=== PATIENT | male | born 1935 | race Caucasian/White ===

== ENCOUNTER 2016-09-12 11:36 | Emergency (ER) ==
--- NOTE | 2016-09-12 11:47 | ED.PDOC ---
General ED Provider: Dr. DAGO ECHEVERRIA JR Chief Complaint: Respiratory Complaint Stated Complaint: saw dr ortiz at office last week with cold sx--dx with pleuresy--given steroids--sx worse--pain to rt chest with cough--states only has 1/3 of lung--up most of nite with some soa--o2 sat at home at 88. [ End ] Time Seen by Physician: 11:47 Mode of Arrival: Walk-In Information Source: Patient Exam Limitations: No limitations Primary Care Provider: MILLIE ORTIZ Nursing and Triage Documentation Reviewed and Agree: No Review of Systems - Review Of Systems Constitutional: Reports: Malaise Eyes: Reports: No symptoms Ears, Nose, Mouth, Throat: Reports: No symptoms Respiratory: Reports: Cough, Short of air, Wheezing Cardiac: Reports: Chest pain, Lightheadedness GI: Reports: No symptoms : Reports: No symptoms Musculoskeletal: Reports: No symptoms Skin: Reports: No symptoms Neurological: Reports: Anxiety Endocrine: Reports: No symptoms Hematologic/Lymphatic: Reports: No symptoms All Other Systems: Other Past Medical History - Past Medical History Previously Healthy: No Endocrine: Reports: DM 2, Dyslipidemia Cardiovascular: Reports: PR, Hypertension Respiratory: Reports: COPD Hematological: Reports: Anemia Gastrointestinal: Reports: None Genitourinary: Reports: None Neuro/Psych: Reports: None Musculoskeletal: Reports: None Cancer: Reports: Lung, Other (bladder) Other Pertinent Past Medical History: pacer bladder tumor lung cancer - Surgical History General Surgical History: Reports: Pacemaker, Other (partial pneumonectomy right upper lobe) - Family History Family History: Reports: Cancer (sisters brothers mother all with due to brain tumors"mine skipped my head and got my lung") - Social History Smoking Status: Current every day smoker, Heavy tobacco smoker Hx Substance Use: No Alcohol Screening: None Physical Exam - Physical Exam Appearance: Ill-appearing, Thin Ill-appearing: Mild Pain Distress: Mild Eyes: ROBERTO, EOMI, Conjunctiva clear ENT: Ears normal, Nose normal, Oropharynx normal Neck: Supple Respiratory: Airway patent, Breath sounds diminished, Rhonchi, Wheezes Cardiovascular: RRR, Pulses normal, No rub, No murmur GI/: Soft, Nontender, No masses, Bowel sounds normal, No Organomegaly Musculoskeletal: Normal strength, ROM intact, No edema, No calf tenderness Skin: Warm, Dry, Normal color Neurological: Sensation intact, Motor intact, Reflexes intact, Cranial nerves intact, Alert, Oriented Psychiatric: Affect appropriate, Anxious Interpretation - Radiology Interpretation Radiology Interpretation By: Radiologist Radiology Results: No acute changes Exam Interpreted: CXR - EKG Interpretation Time of EKG #1: 12:30 Rate: Normal (96) Rhythm: Other (paced no acute changes noted) EKG Comparison: No significant changes ([id number]) Critical Care Note - Critical Care Note Total Time (mins): 15 Course - Course Hematology/Chemistry: 09/12/16 12:40 09/12/16 12:40 Orders, Labs, Meds: Lab Review 09/12/16 09/12/16 12:21 12:40 WBC 21.86 H RBC 4.68 L Hgb 13.1 L Hct 39.6 L MCV 84.6 MCH 28.0 MCHC 33.1 RDW Coeff of [place] 13.7 Plt Count 169 Immature Gran % (Auto) 0.6 Neut % (Auto) 80.0 Lymph % (Auto) 8.1 L [place] % (Auto) 10.5 H Eos % (Auto) 0.5 Baso % (Auto) 0.3 Immature Gran # (Auto) 0.1 Neut # 17.5 H Lymph # 1.8 [place] # 2.3 H Eos # 0.1 Baso # 0.1 D-Dimer 0.89 Puncture Site Lbrach O2 Saturation 90.0 L ABG pH 7.408 ABG pCO2 44.6 ABG pO2 59.0 L* ABG HCO3 28.2 H ABG Total CO2 30 H ABG Base Excess 4 H FiO2 % 21.0 Sodium 139 Potassium 4.3 Chloride 99 Carbon Dioxide 30 Anion Gap 14.3 BUN 21 H Creatinine 1.35 H Estimated GFR (MDRD) 51.00 BUN/Creatinine Ratio 15.55 Glucose 184 H Calcium 10.9 H Total Bilirubin 1.04 AST 14 L ALT 12 Alkaline Phosphatase 62 Total Creatine Kinase 14 Troponin I 0.0100 B-Natriuretic Peptide 151 H Total Protein 7.3 Albumin 3.7 Globulin 3.6 Albumin/Globulin Ratio 1.03 Orders Category Date Time Status ABG DRAW REQUEST Stat CARDIO 09/12/16 12:22 Completed EKG-(ED ONLY) Stat CARDIO 09/12/16 12:21 Completed NEBULIZER TREATMENT Stat CARDIO 09/12/16 12:21 Completed ED IV/MEDIPORT/POWERPORT .ONCE EMERGENCY 09/12/16 12:21 Active ABG Stat LAB 09/12/16 12:21 Completed B-TYPE NATRIURETIC PEPTIDE Stat LAB 09/12/16 12:40 Completed BLOOD CULTURE Stat LAB 09/12/16 12:40 Received CBC W/ AUTO DIFF Stat LAB 09/12/16 12:40 Completed COMPREHENSIVE METABOLIC PANEL Stat LAB 09/12/16 12:40 Completed CREATINE KINASE Stat LAB 09/12/16 12:40 Completed D-DIMER Stat LAB 09/12/16 12:40 Completed TROPONIN I Stat LAB 09/12/16 12:40 Completed UA [URINALYSIS C & S IF INDICATED] Stat LAB 09/12/16 12:54 Uncollected 0.9 % Sodium Chloride [Saline Flush] MEDS 09/12/16 12:21 Active 1 syr IVF PRN PRN Ipratropium/Albuterol Neb [Duoneb] MEDS 09/12/16 12:19 Discontinued 1 vial NEB ONCE STA Ipratropium/Albuterol Neb [Duoneb] MEDS 09/12/16 12:21 Discontinued 1 vial NEB ONCE STA Nicotine 21 mg [Nicoderm 21 mg] MEDS 09/12/16 12:56 Discontinued 1 patch TD ONCE STA CHEST, 1V AP ONLY Stat RADS 09/12/16 12:21 Stop Req CHEST, 2 VIEWS PA & LAT Stat RADS 09/12/16 11:39 Completed Medications Generic Name Dose Route Start Last Admin Trade Name Freq PRN Reason Stop Dose Admin Sodium Chloride 1 syr 09/12/16 12:21 Saline Flush IVF PRN PRN To flush IV Discontinued Medications Generic Name Dose Route Start Last Admin Trade Name Freq PRN Reason Stop Dose Admin Albuterol/Ipratropium 1 vial 09/12/16 12:19 09/12/16 12:37 Duoneb NEB 09/12/16 12:20 1 vial ONCE STA Administration Albuterol/Ipratropium 1 vial 09/12/16 12:21 09/12/16 13:02 Duoneb NEB 09/12/16 12:22 Not Given ONCE STA Nicotine 1 patch 09/12/16 12:56 09/12/16 13:50 Nicoderm 21 Mg TD 09/12/16 12:57 Not Given ONCE STA Vital Signs: Temp Pulse Resp BP Pulse Ox 09/12/16 11:36 97.6 F 100 H 20 110/68 88 L Departure - Departure Time of Disposition: 13:52 Disposition: HOME SELF-CARE Discharge Problem: COPD exacerbation Instructions: Emphysema (ED), COPD (Chronic Obstructive Pulmonary Disease) (ED) , How to Stop Smoking (ED) Condition: Stable Pt referred to PMD for follow-up: Yes Additional Instructions: Please follow-up with Dr. Ortiz in 1-2 days. may begin antibiotic discuss symptoms and medications with your physician return if fever over 101.0 if breathing worsening despite oxygen keep home oxygen at 2-3 for three days then as needed stop smoking Prescriptions: Sulfamethoxazole/Trimethoprim [Bactrim Ds 800/160 mg] 1 tab PO Q12HR #14 tablet Allergies/Adverse Reactions: Allergies codeine [Codeine] Adverse Reaction (Verified 09/12/16 11:47) Penicillins Adverse Reaction (Verified 09/12/16 11:47) propoxyphene HCl [From Darvon] Adverse Reaction (Verified 09/12/16 11:47) Home Medications: Ambulatory Orders Alprazolam [Xanax] 1 mg PO BEDTIME 01/05/13 Atorvastatin Calcium [Lipitor] 20 mg PO BEDTIME 01/05/13 Dexlansoprazole [Dexilant] 60 mg PO DAILY 01/05/13 Cyclobenzaprine HCl [Flexeril] 10 mg PO DAILY PRN 02/03/14 Hydrocodone/Acetaminophen [Hydrocodon-Acetaminophn 10-325] 1 each PO TID PRN Diltiazem HCl [Cardizem] 60 mg PO BID 12/04/15 Polyethylene Glycol 3350 [Miralax] 17 gm PO BEDTIME 12/04/15 Arformoterol Tartrate [Brovana] 1 vial NEB DAILY 04/04/16 Aspirin [Ecotrin] 81 mg PO DAILYWM 07/11/16 Sotalol HCl [Betapace] 40 mg PO BID 07/11/16 Tamsulosin HCl [Flomax] 0.4 mg PO BEDTIME 07/11/16 Cholecalciferol (Vitamin D3) [Vitamin D] 1,000 unit PO DAILY 09/12/16 Multivitamin 1 cap PO DAILY 09/12/16 Sulfamethoxazole/Trimethoprim [Bactrim Ds 800/160 mg] 1 tab PO Q12HR #14 tablet 09/12/16
[2016-09-12 11:54] VITALS: BP 110/68; TEMP 97.6; BMI 21.2
--- NOTE | 2016-09-12 12:08 | DI ---
Exam: Chest two views History: Shortness of air Findings: PA and lateral views of the chest were obtained and compared to the single view study fro 07/11/2016 and a two-view study from 05/16/2016. The lungs are severely emphysematous in appearan ce. There is right-sided volume loss thought due to a prior right-sided thoracotomy. There is supe rior retraction of the right hilum seen in association with abnormal thickening at the right lung ap ex presumably related to pleural reactive changes and the right-sided volume loss in this patient wi th a presumed at least partial right upper lobectomy. There is no definite acute infiltrate or consolidate identified. Cardiac silhouette appears stable and believed to be within normal limits. Pacer device obscures the right midlung zone with the pace r leads appearing unchanged in position. IMPRESSION: Patient status post prior right thoracotomy for a presumed at least partial right upper lobectomy seen in association with postoperative changes including considerable right apical pleura l thickening and superior retraction of the right hilum as well as right basilar pleural parenchymal changes. Emphysematous appearing lungs. No significant changes compared to the prior studies from 05/16/2016 and 07/11/2016.
[2016-09-12] MEDS ORDERED: DUONEB NEB STA ×2 (12:19→12:21)
[2016-09-12 12:44] LABS: ABG BASE EXCESS 4 (-2.0-2.0); ABG HCO3 28.2 (22.0-26.0); ABG PCO2 44.6 mmHg (35-45); ABG PH 7.408 (7.35-7.45); ABG TCO2 30 (22.0-28.0)
[2016-09-12 12:51] LABS: BASOPHILS # (AUTO) 0.1 K/uL (0-0.2); BASOPHILS % (AUTO) 0.3 % (0.0-3.0); EOSINOPHILS # (AUTO) 0.1 K/ul (0.0-0.7); EOSINOPHILS % (AUTO) 0.5 % (0.0-7.0); HEMATOCRIT 39.6 % (42.0-52.0); HEMOGLOBIN 13.1 g/dl (14.0-18.0); IMMATURE GRANULOCYTE % (AUTO) 0.6 % (0.0-5.0); LYMPHOCYTES # (AUTO) 1.8 K/uL (0.60-3.4); LYMPHOCYTES % (AUTO) 8.1 (10.0-50.0); MEAN CORPUSCULAR HGB CONC 33.1 (31.8-35.4); MEAN CORPUSCULAR VOLUME 84.6 fl (80.0-94.0); MONOCYTES # (AUTO) 2.3 K/uL (0.4-2.0); MONOCYTES % (AUTO) 10.5 (0-10); NEUTROPHILS # (AUTO) 17.5 K/ul (2.0-6.9); PLATELET COUNT 169 10^3/uL (140-440); RED BLOOD COUNT 4.68 10^6/ul (4.70-6.10); WHITE BLOOD COUNT 21.86 K/ul (4.2-10.2)
[2016-09-12] MEDS ORDERED: NICODERM 21 MG TD STA (12:56)
[2016-09-12 13:21] LABS: ALBUMIN 3.7 g/dL (3.4-5.0); ALBUMIN/GLOBULIN RATIO 1.03; ANION GAP 14.3; BILIRUBIN,TOTAL 1.04 mg/dL (0.00-1.20); BUN/CREATININE RATIO 15.55; CALCIUM 10.9 mg/dL (8.2-10.2); CREATININE 1.35 mg/dL (0.60-1.10); POTASSIUM 4.3 mmol/L (3.5-5.1); TOTAL PROTEIN 7.3 g/dL (5.8-8.1); TROPONIN I 0.01 ng/ml (0.0000-0.4000)
== END 2016-09-12 14:10 | disposition home or self-care (01) ==
LOC: ED 11:36
DX: J44.1 Chronic obstructive pulmonary disease with (acute) exacerbation (principal); R07.9 Chest pain, unspecified; I10 Essential (primary) hypertension; E11.9 Type 2 diabetes mellitus without complications; E78.5 Hyperlipidemia, unspecified; D64.9 Anemia, unspecified; I25.2 Old myocardial infarction; F17.210 Nicotine dependence, cigarettes, uncomplicated; Z79.899 Other long term (current) drug therapy; Z85.118 Personal history of other malignant neoplasm of bronchus and lung; Z95.0 Presence of cardiac pacemaker
CPT/HCPCS: 36415; 80053; 82550; 82803; 83880; 84484; 85025; 85379; 87040; 93005; 93010; 94640; 99283

== ENCOUNTER 2016-09-25 21:07 | Inpatient (IN) | payer OTHER ==
[2016-09-25] MEDS ORDERED: SOLU-MEDROL 125 MG IVP STA (21:29)
[2016-09-25] MEDS ORDERED: DUONEB NEB STA (21:31)
--- NOTE | 2016-09-25 21:35 | ED.PDOC ---
General ED Provider: Dr. DERECK HANDY Chief Complaint: Shortness of Air Stated Complaint: Patient is an 81 year old female who comes to the ER with dyspnea for 2 days he was treated in the ER 2 week ago for bronchitis with bactrim but has continue to have productive cough now with green sputum. Has a history of partial right lung resection 8 years ago. Continues to smoke vaper. Time Seen by Physician: 21:33 Mode of Arrival: Walk-In Information Source: Patient Primary Care Provider: MILLIE RUSH Nursing and Triage Documentation Reviewed and Agree: Yes Respiratory Complaint Exam - Respiratory Complaint/Exam Onset/Duration: 2 weeks Symptoms Are: Still present Timing: Intermittent Initial Severity: Moderate Current Severity: Moderate Location: Chest Character: Reports: Productive cough (green sputum ) Aggravating: Reports: Passive smoke exposure (and active smoking of vapor ), Weather Associated Signs and Symptoms: Reports: Dyspnea, URI. Denies: Rapid breathing, Fever, Chills, Chest pain, Pleuritic chest pain, Wheezing, Hemoptysis, Dizziness , Calf pain, Calf swelling, Edema, Nasal congestion, Hoarseness, Sinus discomfort, Vomiting, Sore throat, Weight loss, Decreased oral intake, Increased thirst, Increased appetite, Increased urination Related History: Reports: Similar episode Pulmonary Embolism Risk Factors: Smoking Pseudomonas Risk Factors: Reports: Chronic Lung Disease Tuberculosis Risk Factors: Reports: Corticosteriod use Status Asthmaticus Risk Factors: Reports: Recent steriods Home Oxygen Use: Yes (at night ) Recent Stress Test: No Recent Echo/LV Function: No Current Antibiotic Use: No Current Asthma Medication Use: No Respiratory Distress: Mild Dysphagia Present: No Stridor Present: No JVD Present: No Accessory Muscle Use: No Retractions: Not Present Diminished Breath Sounds: Yes (bilaterally worse on the right ) Sinus Tenderness: None Grunting Respirations: No Kussmaul Respirations: No Differential Diagnoses: COPD Exacerbation, Pneumonia, URI, Influenza Review of Systems - Review Of Systems Constitutional: Reports: No symptoms Eyes: Reports: No symptoms Ears, Nose, Mouth, Throat: Reports: No symptoms Respiratory: Reports: Cough (green sputurm ), Short of air Cardiac: Reports: No symptoms GI: Reports: No symptoms : Reports: No symptoms Musculoskeletal: Reports: No symptoms Skin: Reports: No symptoms Neurological: Reports: No symptoms Endocrine: Reports: No symptoms Hematologic/Lymphatic: Reports: No symptoms All Other Systems: Reviewed and Negative Past Medical History - Past Medical History Previously Healthy: No Endocrine: Reports: DM 2, Dyslipidemia Cardiovascular: Reports: MA, Hypertension Respiratory: Reports: COPD Hematological: Reports: Anemia Gastrointestinal: Reports: None Genitourinary: Reports: None Neuro/Psych: Reports: None Musculoskeletal: Reports: None Cancer: Reports: Lung, Other (bladder) Other Pertinent Past Medical History: pacer bladder tumor lung cancer - Surgical History General Surgical History: Reports: Pacemaker, Other (partial pneumonectomy right upper lobe) - Family History Family History: Reports: Cancer (sisters brothers mother all with due to brain tumors"mine skipped my head and got my lung") - Social History Smoking Status: Vaping Hx Substance Use: No Alcohol Screening: None Lives: With family - Immunizations Tetanus Shot up to Date: Yes Physical Exam - Physical Exam Appearance: Ill-appearing Ill-appearing: Mild Eyes: ROBERTO, EOMI, Conjunctiva clear ENT: Ears normal, Nose normal, Oropharynx normal Neck: Supple Respiratory: Breath sounds diminished Cardiovascular: RRR, Pulses normal, No rub, No murmur GI/: Soft, Nontender, No masses, Bowel sounds normal, No Organomegaly Musculoskeletal: Normal strength, ROM intact, No edema, No calf tenderness Skin: Warm Interpretation - Radiology Interpretation Radiology Interpretation By: Radiologist Radiology Results: Positive (Right lower lobe infilarate. Post op changes on the right) Re-Evaluation - Re-Evaluation Time of Re-Evaluation: 22:56 Status: Improved Lungs: Other (Diminihsed) Physician Notification - Case Discussed Physician Notified: Dr Rush Time of Notification: 22:54 (ok to admit to Telemetry ) Critical Care Note - Critical Care Note Total Time (mins): 30 Course - Course Hematology/Chemistry: 09/25/16 21:30 09/25/16 21:30 Orders, Labs, Meds: Lab Review 09/25/16 09/25/16 09/25/16 21:29 21:30 22:00 WBC 20.59 H RBC 4.25 L Hgb 11.8 L Hct 35.8 L MCV 84.2 MCH 27.8 MCHC 33.0 RDW Coeff of [place] 13.4 Plt Count 187 Immature Gran % (Auto) 0.5 Neut % (Auto) 77.7 Lymph % (Auto) 11.9 [place] % (Auto) 8.6 Eos % (Auto) 1.0 Baso % (Auto) 0.3 Immature Gran # (Auto) 0.1 Neut # 16.0 H Lymph # 2.4 [place] # 1.8 Eos # 0.2 Baso # 0.1 Puncture Site Rb O2 Saturation 87.0 L ABG pH 7.386 ABG pCO2 44.7 ABG pO2 54.0 L* ABG HCO3 26.8 H ABG Total CO2 28 ABG Base Excess 2 Nima Test + FiO2 % 21.0 Sodium 139 Potassium 4.7 Chloride 102 Carbon Dioxide 27 Anion Gap 14.7 BUN 19 H Creatinine 1.28 H Estimated GFR (MDRD) 54.00 BUN/Creatinine Ratio 14.84 Glucose 197 H Lactic Acid Calcium 10.0 Total Bilirubin 0.32 AST 14 L ALT 10 L Alkaline Phosphatase 70 Total Creatine Kinase 17 Troponin I 0.0250 Total Protein 7.3 Albumin 3.1 L Globulin 4.2 Albumin/Globulin Ratio 0.74 Procalcitonin 0.14 Influenza A (Rapid) Negative Influenza B (Rapid) Negative 09/25/16 22:10 WBC RBC Hgb Hct MCV MCH MCHC RDW Coeff of [place] Plt Count Immature Gran % (Auto) Neut % (Auto) Lymph % (Auto) [place] % (Auto) Eos % (Auto) Baso % (Auto) Immature Gran # (Auto) Neut # Lymph # [place] # Eos # Baso # Puncture Site O2 Saturation ABG pH ABG pCO2 ABG pO2 ABG HCO3 ABG Total CO2 ABG Base Excess Nima Test FiO2 % Sodium Potassium Chloride Carbon Dioxide Anion Gap BUN Creatinine Estimated GFR (MDRD) BUN/Creatinine Ratio Glucose Lactic Acid 8.5 Calcium Total Bilirubin AST ALT Alkaline Phosphatase Total Creatine Kinase Troponin I Total Protein Albumin Globulin Albumin/Globulin Ratio Procalcitonin Influenza A (Rapid) Influenza B (Rapid) Orders Category Date Time Status ADMIT PATIENT INPATIENT .TO [facility] (MONITORED BED) ADMISSION 09/25/16 23: 02 Active ABG DRAW REQUEST Stat CARDIO 09/25/16 21:30 Completed EKG-(ED ONLY) Stat CARDIO 09/25/16 21:22 Completed EKG-(IP & OP ONLY) Routine CARDIO 09/26/16 06:00 Ordered NEBULIZER TREATMENT Stat CARDIO 09/25/16 21:31 Completed OXYGEN Routine CARDIO 09/25/16 23:02 Active ACTIVITY .Up ad [place] CARE 09/25/16 23:04 Active INTAKE & OUTPUT Q8HR CARE 09/25/16 23:02 Active TELEMETRY MONITORING TELE CARE 09/25/16 23:03 Active VITAL SIGNS Q4HR CARE 09/25/16 23:03 Active REGULAR DIET DIETARY 09/25/16 Breakfast Ordered ED APPLY O2 .ONCE EMERGENCY 09/25/16 22:25 Active ED IV/MEDIPORT/POWERPORT .ONCE EMERGENCY 09/25/16 22:25 Active ABG Stat LAB 09/25/16 21:29 Completed BASIC METABOLIC PANEL DAILY@0600 LAB 09/26/16 06:00 Ordered BASIC METABOLIC PANEL DAILY@0600 LAB 09/27/16 06:00 Ordered BASIC METABOLIC PANEL DAILY@0600 LAB 09/28/16 06:00 Ordered BASIC METABOLIC PANEL DAILY@0600 LAB 09/29/16 06:00 Ordered BASIC METABOLIC PANEL DAILY@0600 LAB 09/30/16 06:00 Ordered BASIC METABOLIC PANEL DAILY@0600 LAB 10/01/16 06:00 Ordered BASIC METABOLIC PANEL DAILY@0600 LAB 10/02/16 06:00 Ordered BASIC METABOLIC PANEL DAILY@0600 LAB 10/03/16 06:00 Ordered BASIC METABOLIC PANEL DAILY@0600 LAB 10/04/16 06:00 Ordered BASIC METABOLIC PANEL DAILY@0600 LAB 10/05/16 06:00 Ordered BASIC METABOLIC PANEL DAILY@0600 LAB 10/06/16 06:00 Ordered BASIC METABOLIC PANEL DAILY@0600 LAB 10/07/16 06:00 Ordered BASIC METABOLIC PANEL DAILY@0600 LAB 10/08/16 06:00 Ordered BASIC METABOLIC PANEL DAILY@0600 LAB 10/09/16 06:00 Ordered BASIC METABOLIC PANEL DAILY@0600 LAB 10/10/16 06:00 Ordered BASIC METABOLIC PANEL DAILY@0600 LAB 10/11/16 06:00 Ordered BASIC METABOLIC PANEL DAILY@0600 LAB 10/12/16 06:00 Ordered BASIC METABOLIC PANEL DAILY@0600 LAB 10/13/16 06:00 Ordered BASIC METABOLIC PANEL DAILY@0600 LAB 10/14/16 06:00 Ordered BASIC METABOLIC PANEL DAILY@0600 LAB 10/15/16 06:00 Ordered BLOOD CULTURE Stat LAB 09/25/16 22:10 Received CBC W/ AUTO DIFF DAILY@0600 LAB 09/26/16 06:00 Ordered CBC W/ AUTO DIFF DAILY@0600 LAB 09/27/16 06:00 Ordered CBC W/ AUTO DIFF DAILY@0600 LAB 09/28/16 06:00 Ordered CBC W/ AUTO DIFF DAILY@0600 LAB 09/29/16 06:00 Ordered CBC W/ AUTO DIFF DAILY@0600 LAB 09/30/16 06:00 Ordered CBC W/ AUTO DIFF DAILY@0600 LAB 10/01/16 06:00 Ordered CBC W/ AUTO DIFF DAILY@0600 LAB 10/02/16 06:00 Ordered CBC W/ AUTO DIFF DAILY@0600 LAB 10/03/16 06:00 Ordered CBC W/ AUTO DIFF DAILY@0600 LAB 10/04/16 06:00 Ordered CBC W/ AUTO DIFF DAILY@0600 LAB 10/05/16 06:00 Ordered CBC W/ AUTO DIFF DAILY@0600 LAB 10/06/16 06:00 Ordered CBC W/ AUTO DIFF DAILY@0600 LAB 10/07/16 06:00 Ordered CBC W/ AUTO DIFF DAILY@0600 LAB 10/08/16 06:00 Ordered CBC W/ AUTO DIFF DAILY@0600 LAB 10/09/16 06:00 Ordered CBC W/ AUTO DIFF DAILY@0600 LAB 10/10/16 06:00 Ordered CBC W/ AUTO DIFF DAILY@0600 LAB 10/11/16 06:00 Ordered CBC W/ AUTO DIFF DAILY@0600 LAB 10/12/16 06:00 Ordered CBC W/ AUTO DIFF DAILY@0600 LAB 10/13/16 06:00 Ordered CBC W/ AUTO DIFF DAILY@0600 LAB 10/14/16 06:00 Ordered CBC W/ AUTO DIFF DAILY@0600 LAB 10/15/16 06:00 Ordered CBC W/ AUTO DIFF Stat LAB 09/25/16 21:30 Completed COMPREHENSIVE METABOLIC PANEL Stat LAB 09/25/16 21:30 Completed CREATINE KINASE Stat LAB 09/25/16 21:30 Completed FLU A & B RAPID TEST [RAPID FLU A/B] Stat LAB 09/25/16 22:00 Completed LACTIC ACID Stat LAB 09/25/16 22:10 Completed MOLECULAR GROUP A STREP Stat LAB 09/25/16 22:00 Results PROCALCITONIN Stat LAB 09/25/16 21:30 Completed STREP SCREEN Stat LAB 09/25/16 22:00 Results TROPONIN I Stat LAB 09/25/16 21:30 Completed 0.9 % Sodium Chloride [Saline Flush] MEDS 09/25/16 22:24 Ordered 1 syr IVF PRN PRN Enoxaparin Sodium [Lovenox] MEDS 09/26/16 09:00 Ordered 40 mg SUBCUT DAILY Hydrocortisone Sod Succ/Pf [Solu-Cortef 100 mg] MEDS 09/25/16 22:45 Discontinued 100 mg IVP ONCE STA Hydrocortisone Sod Succ/Pf [Solu-Cortef 100 mg] MEDS 09/25/16 23:02 Discontinued 100 mg IVP ONCE STA Hydrocortisone Sod Succ/Pf [Solu-Cortef 100 mg] MEDS 09/26/16 05:00 Ordered 100 mg IVP Q8HR Ipratropium/Albuterol Neb [Duoneb] MEDS 09/25/16 21:31 Discontinued 1 vial NEB ONCE STA Levofloxacin/D5w [Levaquin] 100 ml MEDS 09/25/16 22:55 Discontinued IV .STK-MED Levofloxacin/D5w [Levaquin] 500 mg MEDS 09/26/16 09:00 Ordered Premix 100 ml D5w 1 bag IV DAILY Levofloxacin/D5w [Levaquin] 500 mg MEDS 09/25/16 22:46 Discontinued Premix 100 ml D5w 1 bag IV ONCE Methylprednisolone Sod Succ/Pf [Solu-Medrol 125 mg] MEDS 09/25/16 21:29 Discontinued 125 mg IVP ONCE STA Ondansetron HCl/Pf [Zofran 4 mg/2 ml] MEDS 09/25/16 23:02 Ordered 4 mg IVP Q6H PRN Sodium Chloride 0.9% [Sodium Chloride] 1,000 ml MEDS 09/25/16 23:30 Ordered IV 75 mls/hr RESUSCITATION STATUS Routine OTHERS 09/25/16 23:[address] CHEST W/O CONTRAST Stat RADS 09/25/16 21:32 Completed Medications Generic Name Dose Route Start Last Admin Trade Name Freq PRN Reason Stop Dose Admin Acetaminophen/Hydrocodone Bitart 1 tab 09/26/16 00:23 09/26/16 01:00 [place] 10-325 PO 1 tab TID PRN Administration MODERATE PAIN Albuterol/Ipratropium 1 vial 09/26/16 06:00 Duoneb NEB RTQID PRIYANKA Albuterol/Ipratropium 1 vial 09/25/16 23:21 Duoneb NEB RTQ2H PRN Wheezing Aspirin 81 mg 09/26/16 08:00 Aspirin Ec PO DAILYWM [facility] Atorvastatin Calcium 20 mg 09/26/16 21:00 09/26/16 01:00 Lipitor PO 20 mg BEDTIME PRIYANKA Administration Cholecalciferol 1,000 unit 09/26/16 09:00 Vitamin D PO DAILY [facility] Cyclobenzaprine HCl 10 mg 09/25/16 23:13 09/26/16 01:00 Flexeril PO 10 mg DAILY PRN Administration Spasms Diltiazem HCl 60 mg 09/26/16 09:00 Cardizem PO BID [facility] Enoxaparin Sodium 40 mg 09/26/16 09:00 Lovenox SUBCUT DAILY [facility] Hydrocortisone Sodium Succinate 100 mg 09/26/16 05:00 Solu-Cortef 100 Mg IVP Q8HR [facility] Levofloxacin/Dextrose 500 mg/ 100 mls @ 100 mls/hr 09/26/16 09:00 Dextrose IV DAILY [facility] Sodium Chloride 1,000 mls @ 75 mls/hr 09/25/16 23:30 09/26/16 00:15 Sodium Chloride IV 75 mls/hr .[id number] [facility] Administration Multivitamins 1 cap 09/26/16 09:00 Multivitamin PO DAILY [facility] Non-Formulary Medication 60 mg 09/26/16 09:00 Dexlansoprazole [Dexilant] PO DAILY [facility] Non-Formulary Medication 1 mg 09/26/16 21:00 Alprazolam [Xanax] PO BEDTIME [facility] Ondansetron HCl 4 mg 09/25/16 23:02 Zofran 4 Mg/2 Ml IVP Q6H PRN Nausea / Vomiting Polyethylene Glycol 17 gm 09/26/16 21:00 Miralax PO BEDTIME [facility] Sodium Chloride 1 syr 09/25/16 22:24 09/25/16 22:40 Saline Flush IVF 1 syr PRN PRN Administration To flush IV Sotalol HCl 40 mg 09/26/16 09:00 Betapace PO BID [facility] Tamsulosin HCl 0.4 mg 09/26/16 21:00 09/26/16 01:00 Flomax PO 0.4 mg BEDTIME PRIYANKA Administration Discontinued Medications Generic Name Dose Route Start Last Admin Trade Name Freq PRN Reason Stop Dose Admin Acetaminophen/Hydrocodone Bitart tab 09/25/16 23:13 [place] 10-325 PO TID PRN MODERATE PAIN Albuterol/Ipratropium 1 vial 09/25/16 21:31 09/25/16 22:00 Duoneb NEB 09/25/16 21:32 1 vial ONCE STA Administration Hydrocortisone Sodium Succinate 100 mg 09/25/16 22:45 09/25/16 23:07 Solu-Cortef 100 Mg IVP 09/25/16 22:46 100 mg ONCE STA Administration Hydrocortisone Sodium Succinate 100 mg 09/25/16 23:02 09/26/16 01:00 Solu-Cortef 100 Mg IVP 09/25/16 23:03 100 mg ONCE STA Administration Levofloxacin/Dextrose 500 mg/ 100 mls @ 100 mls/hr 09/25/16 22:46 09/25/16 23 :06 Dextrose IV 09/25/16 23:45 100 mls/hr ONCE STA Administration Methylprednisolone Sodium Succinate 125 mg 09/25/16 21:29 09/25/16 22:40 Solu-Medrol 125 Mg IVP 09/25/16 21:30 125 mg ONCE STA Administration Vital Signs: Temp Pulse Resp BP Pulse Ox 09/25/16 23:05 97.1 F L 87 20 126/63 96 09/25/16 21:09 99.6 F 95 H 18 137/75 95 Departure - Departure Time of Disposition: 22:50 Disposition: HOME SELF-CARE Discharge Problem: Pneumonia Qualifiers: Pneumonia type: due to unspecified organism Laterality: right Lung location: lower lobe of lung Qualifier Code: (J18.1) Lobar pneumonia, unspecified organism Condition: Fair Pt referred to PMD for follow-up: No (admitted ) Allergies/Adverse Reactions: Allergies codeine [Codeine] Adverse Reaction (Verified 09/25/16 21:15) Penicillins Adverse Reaction (Verified 09/25/16 21:15) propoxyphene HCl [From Darvon] Adverse Reaction (Verified 09/25/16 21:15) Home Medications: Ambulatory Orders Alprazolam [Xanax] 1 mg PO BEDTIME 01/05/13 Atorvastatin Calcium [Lipitor] 20 mg PO BEDTIME 01/05/13 Dexlansoprazole [Dexilant] 60 mg PO DAILY 01/05/13 Cyclobenzaprine HCl [Flexeril] 10 mg PO DAILY PRN 02/03/14 Hydrocodone/Acetaminophen [Hydrocodon-Acetaminophn 10-325] 1 each PO TID PRN Diltiazem HCl [Cardizem] 60 mg PO BID 12/04/15 Polyethylene Glycol 3350 [Miralax] 17 gm PO BEDTIME 12/04/15 Arformoterol Tartrate [Brovana] 1 vial NEB DAILY 04/04/16 Aspirin [Ecotrin] 81 mg PO DAILYWM 07/11/16 Sotalol HCl [Betapace] 40 mg PO BID 07/11/16 Tamsulosin HCl [Flomax] 0.4 mg PO BEDTIME 07/11/16 Cholecalciferol (Vitamin D3) [Vitamin D] 1,000 unit PO DAILY 09/12/16 Multivitamin 1 cap PO DAILY 09/12/16
[2016-09-25 21:37] LABS: BASOPHILS # (AUTO) 0.1 K/uL (0-0.2); BASOPHILS % (AUTO) 0.3 % (0.0-3.0); EOSINOPHILS # (AUTO) 0.2 K/ul (0.0-0.7); HEMATOCRIT 35.8 % (42.0-52.0); HEMOGLOBIN 11.8 g/dl (14.0-18.0); IMMATURE GRANULOCYTE % (AUTO) 0.5 % (0.0-5.0); LYMPHOCYTES # (AUTO) 2.4 K/uL (0.60-3.4); LYMPHOCYTES % (AUTO) 11.9 (10.0-50.0); MEAN CORPUSCULAR HEMOGLOBIN 27.8 pg (27.0-31.0); MEAN CORPUSCULAR VOLUME 84.2 fl (80.0-94.0); MONOCYTES # (AUTO) 1.8 K/uL (0.4-2.0); MONOCYTES % (AUTO) 8.6 (0-10); NEUTROPHILS % (AUTO) 77.7; PLATELET COUNT 187 10^3/uL (140-440); RED BLOOD COUNT 4.25 10^6/ul (4.70-6.10); WHITE BLOOD COUNT 20.59 K/ul (4.2-10.2)
[2016-09-25 22:03] LABS: ALBUMIN 3.1 g/dL (3.4-5.0); ALBUMIN/GLOBULIN RATIO 0.74; ANION GAP 14.7; BILIRUBIN,TOTAL 0.32 mg/dL (0.00-1.20); BUN/CREATININE RATIO 14.84; CREATININE 1.28 mg/dL (0.60-1.10); POTASSIUM 4.7 mmol/L (3.5-5.1); TOTAL PROTEIN 7.3 g/dL (5.8-8.1); TROPONIN I 0.025 ng/ml (0.0000-0.4000)
[2016-09-25 22:15] LABS: ABG PH 7.386 (7.35-7.45)
[2016-09-25 22:16] LABS: ABG BASE EXCESS 2 (-2.0-2.0); ABG HCO3 26.8 (22.0-26.0); ABG PCO2 44.7 mmHg (35-45); ABG TCO2 28 (22.0-28.0)
--- NOTE | 2016-09-25 22:16 | CT ---
Exam: CT of the chest without contrast History: Chest pain and prior partial pneumonectomy Technique: [address] of the chest without intravenous contrast. Multiplanar reformations were perfor med. FINDINGS: Most recent prior chest CT dated 02/28/2015. Lung windows show severe emphysematous llanos ge. Subtle nodular infiltrate in the right lung. No consolidative opacities. Scarring in the lingu la, right apex and right lower lobe. Atherosclerotic calcification of the aorta without aneurysm. No pathologic lymph node enlargement or abundance of the mediastinum. Right approach pacemaker. No acute chest wall abnormalities. Prior right thoracotomy change. No acute findings of the upper ab domen. Impression: 1. Emphysema and partial pneumonectomy on the right. 2. Very subtle nodular infiltrate mostly in the right lower lung. Nonspecific but likely representi ng infection. No consolidative opacities.
[2016-09-25 22:38] LABS: FLU INTERNAL QC INTERNAL QC VALID; RAPID FLU A NEGATIVE (NEGATIVE); RAPID FLU B NEGATIVE (NEGATIVE)
[2016-09-25] MEDS ORDERED: SOLU-CORTEF 100 MG IVP STA ×2 (22:45→23:02)
[2016-09-25] MEDS ORDERED: LEVAQUIN 500 MG in PREMIX 100 ML D5W 1 BAG IV STA (22:46)
[2016-09-25] MEDS ORDERED: LEVAQUIN 100 ML IV ONE (22:55)
[2016-09-25] MEDS ORDERED: ZOFRAN 4 MG/2 ML IVP PRN (23:02)
[2016-09-25] MEDS ORDERED: NORCO 10-325 PO PRN (23:13)
[2016-09-25] MEDS ORDERED: DUONEB NEB PRN (23:21)
[2016-09-26] MEDS: SODIUM CHLORIDE 1,000 ML IV SCH ×2 (00:15→13:51)
[2016-09-26 00:59] VITALS: BMI 22.5
[2016-09-26] MEDS: NORCO 10-325 PO PRN ×3 (01:00→23:45)
[2016-09-26] MEDS: LIPITOR PO SCH ×2 (01:00→20:56)
[2016-09-26] MEDS: FLEXERIL PO PRN ×2 (01:00→20:55)
[2016-09-26] MEDS: FLOMAX PO SCH ×2 (01:00→20:56)
[2016-09-26] MEDS ORDERED: XANAX ONE (02:06)
[2016-09-26 05:38] LABS: BASOPHILS % (AUTO) 0.1 % (0.0-3.0); HEMATOCRIT 32.9 % (42.0-52.0); HEMOGLOBIN 10.9 g/dl (14.0-18.0); IMMATURE GRANULOCYTE % (AUTO) 0.8 % (0.0-5.0); LYMPHOCYTES % (AUTO) 5.5 (10.0-50.0); MEAN CORPUSCULAR HEMOGLOBIN 28.1 pg (27.0-31.0); MEAN CORPUSCULAR HGB CONC 33.1 (31.8-35.4); MEAN CORPUSCULAR VOLUME 84.8 fl (80.0-94.0); MONOCYTES # (AUTO) 0.2 K/uL (0.4-2.0); MONOCYTES % (AUTO) 1.2 (0-10); NEUTROPHILS # (AUTO) 16.8 K/ul (2.0-6.9); NEUTROPHILS % (AUTO) 92.4; PLATELET COUNT 162 10^3/uL (140-440); RED BLOOD COUNT 3.88 10^6/ul (4.70-6.10); WHITE BLOOD COUNT 18.21 K/ul (4.2-10.2)
[2016-09-26 05:56] LABS: ANION GAP 14.7; BUN/CREATININE RATIO 17.32; CALCIUM 9.8 mg/dL (8.2-10.2); CREATININE 1.27 mg/dL (0.60-1.10); POTASSIUM 4.7 mmol/L (3.5-5.1)
[2016-09-26] MEDS: DUONEB NEB SCH ×4 (06:01→19:28)
[2016-09-26 06:04] LABS: ABG PH 7.373 (7.35-7.45)
[2016-09-26 06:05] LABS: ABG BASE EXCESS 0 (-2.0-2.0); ABG HCO3 25.6 (22.0-26.0); ABG TCO2 27 (22.0-28.0)
[2016-09-26] MEDS: SOLU-CORTEF 100 MG IVP SCH ×3 (06:37→20:59)
[2016-09-26] MEDS ORDERED: NON-FORMULARY MEDICATION (Dexlansoprazole [Dexilant] 60 MG) PO SCH ×22 (09:00)
[2016-09-26] MEDS ORDERED: PROTONIX PO SCH (09:00)
[2016-09-26] MEDS: BETAPACE PO SCH ×2 (09:22→20:56)
[2016-09-26] MEDS: ASPIRIN EC PO SCH (09:22)
[2016-09-26] MEDS: CARDIZEM PO SCH ×2 (09:23→20:56)
[2016-09-26] MEDS: MULTIVITAMIN PO SCH (09:23)
[2016-09-26] MEDS: LOVENOX SUBCUT SCH (09:23)
--- NOTE | 2016-09-26 09:23 | PN ---
DATE OF SERVICE: 09/25/16 - ADMITTING NOTE SUBJECTIVE: 83-year-old white male came to the emergency room with complaint of being short of breath, cough, congestion of one weeks' duration. The patient has been on Bactrim with no response. The patient has a history of CA of the lung with right pneumonectomy, partial. He has a history of smoking, severe chronic lung disease and pacemaker. REVIEW OF SYSTEMS: CONSTITUTIONAL: He doesn't know if he is running fever or not. No night sweats. No fatigue, malaise, lethargy. HEENT: Eyes: No visual changes. No eye pain. No eye discharge. ENT: No runny nose. No epistaxis. No sinus pain. No sore throat. No odynophagia. No congestion. RESPIRATORY: Cough and congestion, pleuritic type of pain. No hemoptysis. CARDIOVASCULAR: No angina symptoms. No CHF symptoms. No atypical chest pain for CAD. No palpitations. Shortness of breath. No PND or orthopnea. GASTROINTESTINAL: Appetite is not that good. No abdominal pain. No nausea or vomiting. No diarrhea or constipation. No hematemesis. No hematochezia. GENITOURINARY: No urgency. No frequency. No dysuria. No hematuria. No obstructive symptoms. No discharge. No pain. No significant abnormal bleeding. MUSCULOSKELETAL: No musculoskeletal pain; no joint swelling. NEUROLOGICAL: No headache. No neck pain. No syncope. No seizures. No dizziness. PSYCHIATRIC: Not anxious. No depression. No suicidal thoughts. No homicidal thoughts. SKIN: No rash. No lesions. No wounds. ENDOCRINE: No unexplained weight loss. No weight gain. HEMATOLOGIC/LYMPHATIC: No anemia. No purpura. No petechiae. No prolonged or excessive bleeding. No palpable lymph nodes. PHYSICAL EXAMINATION: GENERAL: The patient is oriented to time, place and person. VITAL SIGNS: Temperature 98.5, pulse 100, respiratory rate 15, BP 130/70. Oximetry on room air is 87%. HEENT: Head normocephalic, atraumatic. Eyes: Extraocular muscles are intact. Pupils are equal, round and reactive to light and accommodation. Ears: No lesions. Nose appeared normal. Throat: No exudate or erythema. NECK: Supple. No JVD, no carotid bruit. No lymphadenopathy or thyromegaly. LUNGS: Decreased breath sounds with bilateral wheeze. HEART: S1, S2, no S3. No murmurs. No cyanosis or clubbing. No ascites. Pulses: Dorsalis pedis and posterior tibial pulses +1 to +2 both sides. ABDOMEN: Soft. Nontender. Bowel sounds active. No CVA tenderness. No mass felt. EXTREMITIES: No edema. Full range of motion of all extremities, equal. NEUROLOGIC: No focal deficit. Cranial nerves II through XII are grossly intact. No headache, no double vision or headache. SKIN: Not dry. Intact. Turgor - normal. LYMPHATIC: No palpable lymph nodes/no lymphedema. MUSCULOSKELETAL: Normal joints with no swelling. Muscle tone is normal. The patient's CT scan showed right lung infiltrate, possibility of infection/ pneumonitis. ASSESSMENT: 1. ACUTE PNEUMONITIS RIGHT LUNG WITH HISTORY OF CA OF THE LUNG 2. SEVERE CHRONIC LUNG DISEASE 3. HISTORY OF SMOKING 4. PACEMAKER PLAN: 1. IV ANTIBIOTICS, LEVAQUIN 2. STEROIDS 3. NEBS TREATMENT 4. IV FLUIDS 5. OXYGEN 6. MONITOR ABGs 7. TELEMETRY CONDITION: STABLE PROGNOSIS: GUARDED TIME SPENT: More than 30 minutes. Plan and coordination of the patient's care discussed in the presence of nurse. JORGE
[2016-09-26] MEDS: VITAMIN D PO SCH (09:24)
[2016-09-26] MEDS: PROTONIX PO SCH (17:58)
[2016-09-26] MEDS: MIRALAX PO SCH (20:55)
[2016-09-26] MEDS: LEVAQUIN 250 MG in PREMIX 50 ML D5W 1 BAG IV SCH (20:55)
[2016-09-26] MEDS: XANAX PO SCH (20:56)
[2016-09-26] MEDS ORDERED: LEVAQUIN 500 MG in PREMIX 100 ML D5W 1 BAG IV SCH (21:00)
[2016-09-26] MEDS ORDERED: LEVAQUIN 50 ML IV SCH (21:00)
[2016-09-26] MEDS ORDERED: NON-FORMULARY MEDICATION (Alprazolam [Xanax] 1 MG) PO SCH ×22 (21:00)
[2016-09-27] MEDS: SODIUM CHLORIDE 1,000 ML IV SCH (04:42)
[2016-09-27] MEDS: SOLU-CORTEF 100 MG IVP SCH (04:42)
[2016-09-27] MEDS: DUONEB NEB SCH ×4 (04:52→21:43)
[2016-09-27 05:16] LABS: BASOPHILS % (AUTO) 0.1 % (0.0-3.0); HEMATOCRIT 29.5 % (42.0-52.0); HEMOGLOBIN 9.9 g/dl (14.0-18.0); IMMATURE GRANULOCYTE % (AUTO) 1.2 % (0.0-5.0); LYMPHOCYTES # (AUTO) 1.2 K/uL (0.60-3.4); LYMPHOCYTES % (AUTO) 7.8 (10.0-50.0); MEAN CORPUSCULAR HEMOGLOBIN 28.3 pg (27.0-31.0); MEAN CORPUSCULAR HGB CONC 33.6 (31.8-35.4); MEAN CORPUSCULAR VOLUME 84.3 fl (80.0-94.0); MONOCYTES # (AUTO) 0.6 K/uL (0.4-2.0); MONOCYTES % (AUTO) 3.9 (0-10); NEUTROPHILS # (AUTO) 13.7 K/ul (2.0-6.9); PLATELET COUNT 190 10^3/uL (140-440); WHITE BLOOD COUNT 15.74 K/ul (4.2-10.2)
[2016-09-27] MEDS: PROTONIX PO SCH ×2 (05:52→16:21)
[2016-09-27 06:16] LABS: ANION GAP 13.6; BUN/CREATININE RATIO 19.14; CREATININE 1.41 mg/dL (0.60-1.10); POTASSIUM 4.6 mmol/L (3.5-5.1)
[2016-09-27 06:17] LABS: CALCIUM 9.1 mg/dL (8.2-10.2)
[2016-09-27] MEDS: VITAMIN D PO SCH (09:23)
[2016-09-27] MEDS: LOVENOX SUBCUT SCH (09:23)
[2016-09-27] MEDS: BETAPACE PO SCH ×2 (09:24→20:27)
[2016-09-27] MEDS: ASPIRIN EC PO SCH (09:24)
[2016-09-27] MEDS: MULTIVITAMIN PO SCH (09:24)
[2016-09-27] MEDS: CARDIZEM PO SCH ×2 (09:25→20:26)
--- NOTE | 2016-09-27 09:43 | PCM.PROG ---
Attending Provider: ATTENDING PROVIDER: Dr. MILLIE RUSH DATE OF SERVICE: 09/27/16 SUBJECTIVE: This 81 year old WHITE/ M was hospitalized 09/25/16. The patient is hospitalized with pneumonitis. The patient has an infiltrate in the right lung as well as dehydration. Condition has improved. Appetite is better. He is not coughing as much as before. REVIEW OF SYSTEMS: CONSTITUTIONAL: Weakness. No night sweats. No fever or chills. HEENT: Eyes: No visual changes. No eye pain. No eye discharge. ENT: No runny nose. No epistaxis. No sinus pain. No odynophagia. No congestion. RESPIRATORY: Mild cough and congestion. No hemoptysis. CARDIOVASCULAR: No angina symptoms. No CHF symptoms. No atypical chest pain for CAD. No palpitations. No shortness of breath. GASTROINTESTINAL: Appetite is better. No abdominal pain. No nausea or vomiting. No diarrhea or constipation. No hematemesis. No hematochezia. GENITOURINARY: No urgency. No frequency. No dysuria. No hematuria. No obstructive symptoms. No discharge. No pain. No significant abnormal bleeding. MUSCULOSKELETAL: No musculoskeletal pain; no joint swelling. NEUROLOGICAL: Awake, alert, oriented to time, place and person. No headache. No neck pain. No syncope. No seizures. No dizziness. PSYCHIATRIC: Not anxious. No depression. No suicidal thoughts. No homicidal thoughts. SKIN: No rash. No lesions. No wounds. ENDOCRINE: No unexplained weight loss. No weight gain. HEMATOLOGIC/LYMPHATIC: No anemia. No purpura. No petechiae. No prolonged or excessive bleeding. No palpable lymph nodes. PHYSICAL EXAMINATION: GENERAL: The patient is awake, alert and oriented, lying/sitting in bed in no distress. VITAL SIGNS: Temperature 97.8 F, Pulse 90, Respiratory Rate 22, BP 122/67, Pulse Ox 97% HEENT: Head normocephalic, atraumatic. Eyes: Extraocular muscles are intact. Pupils are equal, round and reactive to light and accommodation. Ears: No lesions. Nose appeared normal. Throat: No exudate or erythema. NECK: Supple. No JVD, no carotid bruit. No lymphadenopathy or thyromegaly. LUNGS: Clear to auscultation. Percussion note normal. Chest symmetrical. HEART: S1, S2, no S3. No murmurs. No cyanosis or clubbing. No ascites. Pulses: Dorsalis pedis and posterior tibial pulses +1 to +2 both sides. ABDOMEN: Soft. Non-tender. Bowel sounds active. No CVA tenderness. No mass felt. EXTREMITIES: No edema. Full range of motion of all extremities, equal. NEUROLOGIC: No focal deficit. Cranial nerves II through XII are grossly intact. No headache, no double vision or headache. SKIN: Not dry. Intact. Turgor-normal. LYMPHATIC: No palpable lymph nodes/no lymphedema. MUSCULOSKELETAL: Normal joints with no swelling. Muscle tone is normal. LAB REVIEW: 09/27/16 05:07 09/27/16 05:07 09/27/16 05:07: WBC 15.74 H, RBC 3.50 L, Hgb 9.9 L, Hct 29.5 L, MCV 84.3, MCH 28.3, MCHC 33.6, RDW Coeff of [place] 13.4, Plt Count 190, Immature Gran % (Auto) 1.2, Neut % (Auto) 87.0, Lymph % (Auto) 7.8 L, [place] % (Auto) 3.9, Eos % (Auto) 0.0, Baso % (Auto) 0.1, Immature Gran # (Auto) 0.2, Neut # 13.7 H, Lymph # 1.2, [place] # 0.6, Eos # 0.0, Baso # 0.0, Sodium 138, Potassium 4.6, Chloride 105, Carbon Dioxide 24, Anion Gap 13.6, BUN 27 H, Creatinine 1.41 H, Estimated GFR ( MDRD) 48.00, BUN/Creatinine Ratio 19.14, Glucose 372 H, Calcium 9.1 ASSESSMENT: 1. Acute bronchitis/pneumonitis/dehydration 2. Chronic lung disease, severe 3. CA of the lung 4. Pacemaker 5. Hypertension 6. History of smoking PLAN: 1. Discontinue IV fluids 2. Up and about 3. Oral steroids - Prednisone 10 mg t.i.d. 4. Continue antibiotics 5. Discontinue telemetry Plan and coordination of the patient's care discussed in the presence of Custom Framing Specialist and nurse. EDUCATION: Counseling for smoking done. The patient is going out to smoke in spite of the fact he has pneumonia. The patient is intelligent. CONDITION: Stable; prognosis is guarded. SCRIBED BY: RAHUL PALACIOS, Director Of Athletics scribed while in presence of service performed by Dr. MILLIE RUSH on 09/27/16 ([id number])
[2016-09-27] MEDS: PREDNISONE PO SCH ×2 (12:20→18:03)
--- NOTE | 2016-09-27 13:12 | PN ---
DATE OF SERVICE: 09/26/16 SUBJECTIVE: The patient is an 81 year old white male hospitalized with acute bronchitis, chronic lung disease and pneumonia. The patient is feeling a lot better, he is sleepy. The is present in the room and she says that his breathing is a lot better. He hasn't slept for two days so he is making up for it. REVIEW OF SYSTEMS: CONSTITUTIONAL: No night sweats. No fatigue, malaise, lethargy. No fever or chills. HEENT: Eyes: No visual changes. No eye pain. No eye discharge. ENT: No runny nose. No epistaxis. No sinus pain. No sore throat. No odynophagia. No congestion. RESPIRATORY: Mild cough and congestion. No hemoptysis. CARDIOVASCULAR: No angina symptoms. No CHF symptoms. No atypical chest pain for CAD. No palpitations. No shortness of breath. GASTROINTESTINAL: No abdominal pain. No nausea or vomiting. No diarrhea or constipation. No hematemesis. No hematochezia. GENITOURINARY: No urgency. No frequency. No dysuria. No hematuria. No obstructive symptoms. No discharge. No pain. No significant abnormal bleeding. MUSCULOSKELETAL: No musculoskeletal pain; no joint swelling. NEUROLOGICAL: No headache. No neck pain. No syncope. No seizures. No dizziness. PSYCHIATRIC: Not anxious. No depression. No suicidal thoughts. No homicidal thoughts. SKIN: No rash. No lesions. No wounds. ENDOCRINE: No unexplained weight loss. No weight gain. HEMATOLOGIC/LYMPHATIC: No anemia. No purpura. No petechiae. No prolonged or excessive bleeding. No palpable lymph nodes. PHYSICAL EXAMINATION: GENERAL: The patient is sleepy. VITAL SIGNS: Temperature 97.3, pulse 78, respiratory rate 24, blood pressure 114/55 and pulse ox 92%. HEENT: Head normocephalic, atraumatic. Eyes: Extraocular muscles are intact. Pupils are equal, round and reactive to light and accommodation. Ears: No lesions. Nose appeared normal. Throat: No exudate or erythema. NECK: Supple. No JVD, no carotid bruit. No lymphadenopathy or thyromegaly. LUNGS: Decreased breath sounds but clear to auscultation with mild wheeze. Percussion note normal. Chest symmetrical. HEART: S1, S2, no S3. No murmurs. No cyanosis or clubbing. No ascites. Pulses: Dorsalis pedis and posterior tibial pulses +1 to +2 both sides. ABDOMEN: Soft. Nontender. Bowel sounds active. No CVA tenderness. No mass felt. EXTREMITIES: No edema. Full range of motion of all extremities, equal. NEUROLOGIC: No focal deficit. Cranial nerves II through XII are grossly intact. No headache, no double vision or headache. SKIN: Not dry. Intact. Turgor - normal. LYMPHATIC: No palpable lymph nodes/no lymphedema. MUSCULOSKELETAL: Normal joints with no swelling. Muscle tone is normal. LABS: Hgb 10.9, hct 32, WBC 18,000 normal differential, creatinine 1.2, BUN 22 and potassium 4.7. ASSESSMENT: 1. Acute bronchitis/ pneumonitis seems to be under control and resolving. 2. Cancer of the lung, right side 3. Severe chronic lung disease 4. Hypertension 5. Pacemaker PLAN: 1. Continue IV antibiotics steroids. 2. IV fluids 3. Continue to monitor telemetry CONDITION: Stable. TIME SPENT: More than 30 minutes. Plan and coordination of the patient's care discussed in the presence of nurse. JORGE
--- NOTE | 2016-09-27 15:06 | HP ---
DATE OF SERVICE: 09/25/16 REASON FOR HOSPITALIZATION: Pneumonia HISTORY OF PRESENT ILLNESS: The patient is an 81 year old white male was hospitalized through the emergency room as he went to the emergency room with his because of cough, congestion, shortness of breath and poor appetite for nearly 4-5 days. The patient has been on Septra twice a day for bronchitis with some steroid with practically no improvement and in fact his condition worsened. The patient underwent CT scan of the chest in the emergency room which showed right lung infiltrate. The patient has history of right pneumonectomy for c of the lung. The patient has continued to smoke and is non-compliant of his medications. In any case the patient was hospitalized with the diagnosis of pneumonia. REVIEW OF SYSTEMS: CONSTITUTIONAL: No night sweats. Fatigue and weakness with fever. HEENT: Eyes: No visual changes. No eye pain. No eye discharge. ENT: No runny nose. No epistaxis. No sinus pain. No sore throat. No odynophagia. No ear pain. No congestion. RESPIRATORY: Cough with congestion yellowish sputum production. No hemoptysis. CARDIOVASCULAR: No angina symptoms. No CHF symptoms. No atypical chest pain for CAD. No palpitations. No shortness of breath. Pleuritic type of pain. No PND. No Orthopnea. GASTROINTESTINAL: No abdominal pain. No nausea or vomiting. No diarrhea or constipation. No hematemesis. No hematochezia. Poor appetite. GENITOURINARY: No urgency. No frequency. No dysuria. No hematuria. No obstructive symptoms. No discharge. No pain. No significant abnormal bleeding. MUSCULOSKELETAL: No musculoskeletal pain. No joint swelling. No arthritis. NEUROLOGICAL: No headache. No neck pain. No syncope. No seizures. No dizziness. PSYCHIATRIC: Not anxious. No depression. No suicidal thoughts. No homicidal thoughts. SKIN: No rash. No lesions. No wounds. ENDOCRINE: No unexplained weight loss. No weight gain. HEMATOLOGIC/LYMPHATIC: No anemia. No purpura. No petechiae. No prolonged or excessive bleeding. No palpable lymph nodes. PERSONAL/FAMILY/SOCIAL HISTORY: The patient is a and lives with his and does all activity of daily living. Smokes more than a pack of a pack and no alcohol use. 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 VITAL SIGNS: Temperature 98, pulse 80, respiratory rate 24, blood pressure 110/ 60 and pulse ox 92%. HEENT: Head normocephalic, atraumatic. Eyes: Extraocular muscles are intact. Pupils are equal, round and reactive to light and accommodation. Ears: No lesions. Nose appeared normal. Throat: No exudate or erythema. Skin dry. Mucosa Membrane dry. FACE: Symmetrical. Sclerae not icteric NECK: Supple. No JVP, no carotid bruit. No lymphadenopathy or thyromegaly. LUNGS: Decreased breath sounds with wheeze bilaterally.More on the right side then the left. Percussion note normal. Chest symmetrical. HEART: S1, S2, no S3. No murmurs. No cyanosis or clubbing. No ascites. Pulses: Dorsalis pedis and posterior tibial pulses +1 to +2 both sides. ABDOMEN: Soft. Nontender. Bowel sounds active. No CVA tenderness. No mass felt. EXTREMITIES: Equal. No edema. Full range of motion of all extremities, equal. NEUROLOGIC: No focal deficit. Cranial nerves II through XII are grossly intact. No headache, no double vision or headache. SKIN: Dry. Intact. Turgor - normal. LYMPHATIC: No palpable lymph nodes/no lymphedema. MUSCULOSKELETAL: Normal joints with no swelling. Muscle tone is normal. LABS: hgb 11.8, hct 35, WBC 20,[address] of the chest showed nodular infiltrate on the right lung, right sided pneumonectomy. Strep screen negative. ABG pO2 54, pCO 2 44, pH 7.38 with 97% saturation on room air. Creatinine 1.2, BUN 19 and glucose 197. Liver profile negative. Lactic acid normal. Procalcitonin normal. Rapid A and B negative. ASSESSMENT: 1. Acute respiratory failure 2. Pneumonitis, involving right lung 3. C of the lung 4. COPD 5. Smoking 6. Pacemaker, duel chamber 7. Dyslipidemia 8. Hypertension 9. C of the bladder 10. Dehydration 11. Chronic kidney disease PLAN: 1. IV antibiotics 2. IV fluids 3. IV steroids 4. Oxygen 5. Monitor ABG's 6. Telemetry 7. Daily CBC and CMP 8. Counseling for smoking done CONDITION: Stable PROGNOSIS: Poor. TIME SPENT: More than 70 minutes. MTDD
[2016-09-27] MEDS: LIPITOR PO SCH (20:27)
[2016-09-27] MEDS: LEVAQUIN 250 MG in PREMIX 50 ML D5W 1 BAG IV SCH (20:27)
[2016-09-27] MEDS: XANAX PO SCH (20:27)
[2016-09-27] MEDS: FLOMAX PO SCH (20:27)
[2016-09-27] MEDS: MIRALAX PO SCH (20:28)
[2016-09-27] MEDS: FLEXERIL PO PRN (20:55)
[2016-09-27] MEDS: NORCO 10-325 PO PRN (20:55)
[2016-09-28] MEDS: DUONEB NEB SCH ×2 (04:43→10:07)
[2016-09-28] MEDS: PROTONIX PO SCH (05:32)
[2016-09-28 05:37] VITALS: BP 110/52; TEMP 97.2
[2016-09-28 05:48] LABS: BASOPHILS % (AUTO) 0.1 % (0.0-3.0); HEMATOCRIT 28.9 % (42.0-52.0); HEMOGLOBIN 9.4 g/dl (14.0-18.0); IMMATURE GRANULOCYTE % (AUTO) 0.9 % (0.0-5.0); LYMPHOCYTES # (AUTO) 1.2 K/uL (0.60-3.4); LYMPHOCYTES % (AUTO) 8.1 (10.0-50.0); MEAN CORPUSCULAR HEMOGLOBIN 27.8 pg (27.0-31.0); MEAN CORPUSCULAR HGB CONC 32.5 (31.8-35.4); MEAN CORPUSCULAR VOLUME 85.5 fl (80.0-94.0); MONOCYTES # (AUTO) 0.6 K/uL (0.4-2.0); MONOCYTES % (AUTO) 4.2 (0-10); NEUTROPHILS # (AUTO) 12.6 K/ul (2.0-6.9); NEUTROPHILS % (AUTO) 86.7; PLATELET COUNT 180 10^3/uL (140-440); RED BLOOD COUNT 3.38 10^6/ul (4.70-6.10); WHITE BLOOD COUNT 14.48 K/ul (4.2-10.2)
[2016-09-28 06:08] LABS: ANION GAP 13.8; BUN/CREATININE RATIO 17.91; CALCIUM 8.9 mg/dL (8.2-10.2); CREATININE 1.34 mg/dL (0.60-1.10); POTASSIUM 4.8 mmol/L (3.5-5.1)
[2016-09-28] MEDS: PREDNISONE PO SCH (08:55)
[2016-09-28] MEDS: ASPIRIN EC PO SCH (08:55)
[2016-09-28] MEDS: MULTIVITAMIN PO SCH (09:11)
[2016-09-28] MEDS: VITAMIN D PO SCH (09:11)
[2016-09-28] MEDS: CARDIZEM PO SCH (09:11)
[2016-09-28] MEDS: BETAPACE PO SCH (09:12)
[2016-09-28] MEDS: LOVENOX SUBCUT SCH (09:12)
--- NOTE | 2016-09-28 09:39 | DS ---
DATE OF SERVICE: 09/28/16 FINAL DIAGNOSIS: 1. ACUTE PNEUMONITIS/RIGHT LUNG INFILTRATE CLINICALLY RESOLVED 2. CHRONIC LUNG DISEASE, SEVERE 3. CA OF THE LUNG 4. PACEMAKER 5. HYPERTENSION 6. CONTINUED SMOKING 7. ATRIAL FIBRILLATION 8. CAD 9. BPH 10. STATUS POST RIGHT LOBECTOMY (RML, RUL) 11. BILATERAL CATARACT EXTRACTION VITAL SIGNS: Temperature 97.2 F, Pulse 73, Respiratory Rate 18, BP 110/52, Pulse Ox 95% DISCHARGE INSTRUCTIONS: Followup appointment has been arranged with Dr. Rush for 10/04/16 at 2:15 p.m. MEDICATIONS AT DISCHARGE: 1. Atorvastatin (Lipitor) 20 mg p.o. bedtime 2. Dexlansoprazole (Dexilant) 60 mg p.o. daily 3. Alprazolam (Xanax) 1 mg p.o. bedtime 4. Cyclobenzaprine (Flexeril) 10 mg p.o. daily p.r.n. 5. Hydrocodone/Acetaminophen one each p.o. t.i.d. p.r.n. 6. Diltiazem (Cardizem) 60 mg p.o. b.i.d. 7. Polyethylene Glycol 17 gm p.o. bedtime 8. Arformoterol Tartrate (Brovana) 15 mcg/2 mL one vial neb daily 9. Sotalol (Betapace) 40 mg p.o. b.i.d. 10. Tamsulosin 0.4 mg p.o. bedtime 11. Aspirin 81 mg p.o. daily with meal 12. Multivitamin one cap p.o. daily 13. Cholecalciferol (Vitamin D3) 1,000 unit p.o. daily NEW PRESCRIPTIONS: 1. Levaquin 250 p.o. daily for 7 days 2. Prednisone 10 mg daily for 10 days DIET INSTRUCTIONS: Regular diet ACTIVITY: Resume as tolerated; advised to stay indoors for at least 2 days. SMOKING: Advised to quit; counseling done. DISEASE SPECIFIC EDUCATION: 1..Prescriptions - Discussed side effects of Prednisone in detail to include avascular necrosis of the femoral head, cataracts, diabetes, osteoporosis. The patient voices understanding and is in agreement. 2. Counseling for smoking done. 3. Nutrition 4. Appointments 5. Activity HOSPITAL COURSE: This 81-year-old male was hospitalized with right lung infiltrate with pneumonitis type of symptoms with dehydration. The patient is a heavy smoker and has a history of cancer of the lung with chronic lung disease. The patient was treated with IV Levaquin and IV Solu-Cortef. IV fluids were given and condition improved. He is feeling better, has been up and about, going out to smoke several times a day. He was also on nebs and oxygen. The patient's condition improved clinically, lungs practically clear. Advised the patient to quit smoking and he says he will not. Cardiovascular status is stable. The patient was discharged on Levaquin. The patient's condition is stable. LAB DATA: 09/28/16 05:11: WBC 14.48 H, RBC 3.38 L, Hgb 9.4 L, Hct 28.9 L, MCV 85.5, MCH 27.8, MCHC 32.5, RDW Coeff of [place] 13.3, Plt Count 180, Immature Gran % (Auto) 0.9, Neut % (Auto) 86.7, Lymph % (Auto) 8.1 L, [place] % (Auto) 4.2, Eos % (Auto) 0.0, Baso % (Auto) 0.1, Immature Gran # (Auto) 0.1, Neut # 12.6 H, Lymph # 1.2, [place] # 0.6, Eos # 0.0, Baso # 0.0, Sodium 139, Potassium 4.8, Chloride 105, Carbon Dioxide 25, Anion Gap 13.8, BUN 24 H, Creatinine 1.34 H, Estimated GFR ( MDRD) 51.00, BUN/Creatinine Ratio 17.91, Glucose 351 H, Calcium 8.9 PLAN: 1. Discharge home 2. Encouraged to stay inside and rest for a few days 3. Good nutrition discussed. SCRIBED BY: RAHUL PALACIOS, Needle Straightener scribed while in presence of service performed by Dr. MILLIE RUSH on 09/28/16 ([id number]) TIME SPENT: More than 60 minutes. MTDD
--- NOTE | 2016-09-28 10:01 | PCM.PROG ---
Attending Provider: ATTENDING PROVIDER: Dr. MILLIE RUSH DATE OF SERVICE: 09/28/16 SUBJECTIVE: This 81 year old WHITE/ M was hospitalized 09/25/16. The patient is hospitalized with pneumonia. The patient's condition has improved remarkably. He is up and about going out to smoke in cold weather 3 to 4 times a day. The patient has no complaints and is ready to go home. REVIEW OF SYSTEMS: CONSTITUTIONAL: No night sweats. No fatigue, malaise, lethargy. No fever or chills. HEENT: Eyes: No visual changes. No eye pain. No eye discharge. ENT: No runny nose. No epistaxis. No sinus pain. No odynophagia. No congestion. RESPIRATORY: No cough, no congestion. No hemoptysis. CARDIOVASCULAR: No angina symptoms. No CHF symptoms. No atypical chest pain for CAD. No palpitations. No shortness of breath. No PND, no orthopnea. GASTROINTESTINAL: No abdominal pain. No nausea or vomiting. No diarrhea or constipation. No hematemesis. No hematochezia. GENITOURINARY: No urgency. No frequency. No dysuria. No hematuria. No obstructive symptoms. No discharge. No pain. No significant abnormal bleeding. MUSCULOSKELETAL: No musculoskeletal pain; no joint swelling. NEUROLOGICAL: Awake, alert, oriented to time, place and person. No headache. No neck pain. No syncope. No seizures. No dizziness. PSYCHIATRIC: Not anxious. No depression. No suicidal thoughts. No homicidal thoughts. SKIN: No rash. No lesions. No wounds. ENDOCRINE: No unexplained weight loss. No weight gain. HEMATOLOGIC/LYMPHATIC: No anemia. No purpura. No petechiae. No prolonged or excessive bleeding. No palpable lymph nodes. PHYSICAL EXAMINATION: GENERAL: The patient is awake, alert and oriented, sitting on the side of the bed in no distress. VITAL SIGNS: Temperature 97.2 F, Pulse 73, Respiratory Rate 18, BP 110/52, Pulse Ox 95% HEENT: Head normocephalic, atraumatic. Eyes: Extraocular muscles are intact. Pupils are equal, round and reactive to light and accommodation. Ears: No lesions. Nose appeared normal. Throat: No exudate or erythema. No sore throat. NECK: Supple. No JVD, no carotid bruit. No lymphadenopathy or thyromegaly. LUNGS: Good air entry, no wheeze. Percussion note normal. Chest symmetrical. HEART: S1, S2, no S3. No murmurs. No cyanosis or clubbing. No ascites. Pulses: Dorsalis pedis and posterior tibial pulses +1 to +2 both sides. ABDOMEN: Soft. Non-tender. Bowel sounds active. No CVA tenderness. No mass felt. EXTREMITIES: No edema. Full range of motion of all extremities, equal. NEUROLOGIC: No focal deficit. Cranial nerves II through XII are grossly intact. No headache, no double vision or headache. SKIN: Not dry. Intact. Turgor-normal. LYMPHATIC: No palpable lymph nodes/no lymphedema. MUSCULOSKELETAL: Normal joints with no swelling. Muscle tone is normal. LAB REVIEW: 09/28/16 05:11 09/28/16 05:11 09/28/16 05:11: WBC 14.48 H, RBC 3.38 L, Hgb 9.4 L, Hct 28.9 L, MCV 85.5, MCH 27.8, MCHC 32.5, RDW Coeff of [place] 13.3, Plt Count 180, Immature Gran % (Auto) 0.9, Neut % (Auto) 86.7, Lymph % (Auto) 8.1 L, [place] % (Auto) 4.2, Eos % (Auto) 0.0, Baso % (Auto) 0.1, Immature Gran # (Auto) 0.1, Neut # 12.6 H, Lymph # 1.2, [place] # 0.6, Eos # 0.0, Baso # 0.0, Sodium 139, Potassium 4.8, Chloride 105, Carbon Dioxide 25, Anion Gap 13.8, BUN 24 H, Creatinine 1.34 H, Estimated GFR ( MDRD) 51.00, BUN/Creatinine Ratio 17.91, Glucose 351 H, Calcium 8.9 ASSESSMENT: 1. Acute pneumonitis, right lung infiltrate, clinically resolved. 2. CA of the lung. 3. COPD. 4. Continued smoking. 5. Pacemaker. PLAN: 1. Discharge home 2. Encouraged to stay inside and rest for a few days 3. Encouraged on good nutrition. 4. Levaquin 250 mg p.o. daily for 7 days. 5. Prednisone 10 mg daily for 10 days. Plan and coordination of the patient's care discussed in the presence of Interactive Media Marketing Specialist and nurse. EDUCATION: Discussed with the patient plans for discharge. Discussed medications; risks and benefits of antibiotics and steroids. Discussed the side effects of steroids to include avascular necrosis of the femoral head, cataracts, diabetes , osteoporosis. The patient voices understanding and is in agreement. The patient is again counseled to quit smoking. He states, "I will never quit." CONDITION: Stable SCRIBED BY: RAHUL PALACIOS Senior Quantity Surveyor scribed while in presence of service performed by Dr. MILLIE RUSH on 09/28/16 ([id number])
--- NOTE | 2016-09-28 10:17 | CM.DICTOOL ---
ADMISSION: 09/25/16 23:07 DISCHARGE: September, DATE OF SERVICE: 09/28/16 FINAL DIAGNOSIS Acute Respiratory Failure Right lower lobe pneumonia COPD Continued Smoking Atrial Fibrillation CAD BPH Lung Cancer S/P Right Lobectomy (RML, RUL) Bilateral Cataract Extraction Pacemaker LAST VITALS Temp Pulse Resp BP Pulse Ox 97.2 F L 73 20 110/52 L 95 09/28/16 05:33 09/28/16 05:33 09/28/16 08:00 09/28/16 05:33 09/28/16 05:33 ACTIVE HOME MEDICATIONS Acetaminophen/Hydrocodone Bitart ([place] 10-325) 1 tab PO TID PRN PRN Reason: MODERATE PAIN Last Admin: 09/27/16 20:55 Dose: 1 tab Alprazolam (Xanax) 1 mg PO BEDTIME [facility] Last Admin: 09/27/16 20:27 Dose: 1 mg Aspirin (Aspirin Ec) 81 mg PO DAILYWM [facility] Last Admin: 09/28/16 08:55 Dose: 81 mg Atorvastatin Calcium (Lipitor) 20 mg PO BEDTIME [facility] Last Admin: 09/27/16 20:27 Dose: 20 mg Cholecalciferol (Vitamin D) 1,000 unit PO DAILY [facility] Last Admin: 09/28/16 09:11 Dose: 1,000 unit Cyclobenzaprine HCl (Flexeril) 10 mg PO DAILY PRN PRN Reason: Spasms Last Admin: 09/27/16 20:55 Dose: 10 mg Diltiazem HCl (Cardizem) 60 mg PO BID [facility] Last Admin: 09/28/16 09:11 Dose: 60 mg Multivitamins (Multivitamin) 1 cap PO DAILY [facility] Last Admin: 09/28/16 09:11 Dose: 1 cap Polyethylene Glycol (Miralax) 17 gm PO BEDTIME [facility] Last Admin: 09/27/16 20:28 Dose: 17 gm Sotalol HCl (Betapace) 40 mg PO BID [facility] Last Admin: 09/28/16 09:12 Dose: 40 mg Tamsulosin HCl (Flomax) 0.4 mg PO BEDTIME [facility] Last Admin: 09/27/16 20:27 Dose: 0.4 mg Dexilant 60 mg Daily Last Admin: Arformoterol Tartrate (Brovana) 1 vial Daily Last Admin: ALLERGIES codeine [Codeine] Adverse Reaction (Verified 09/25/16 21:15) Penicillins Adverse Reaction (Verified 09/25/16 21:15) propoxyphene HCl [From Darvon] Adverse Reaction (Verified 09/25/16 21:15) NEW PRESCRIPTIONS: Levaquin 250 mg take 1 daily for 7 days Prednisone 10 mg take 1 daily for 10 days SMOKING: Despite advice to stop smoking, Mr. Kitchen continues to smoke DISEASE SPECIFIC EDUCATION: Nutrition Prescriptions Appointments Activity LAB REVIEW: 09/28/16 05:11 09/28/16 05:11 09/28/16 05:11: WBC 14.48 H, RBC 3.38 L, Hgb 9.4 L, Hct 28.9 L, MCV 85.5, MCH 27.8, MCHC 32.5, RDW Coeff of [place] 13.3, Plt Count 180, Immature Gran % (Auto) 0.9, Neut % (Auto) 86.7, Lymph % (Auto) 8.1 L, [place] % (Auto) 4.2, Eos % (Auto) 0.0, Baso % (Auto) 0.1, Immature Gran # (Auto) 0.1, Neut # 12.6 H, Lymph # 1.2, [place] # 0.6, Eos # 0.0, Baso # 0.0, Sodium 139, Potassium 4.8, Chloride 105, Carbon Dioxide 25, Anion Gap 13.8, BUN 24 H, Creatinine 1.34 H, Estimated GFR ( MDRD) 51.00, BUN/Creatinine Ratio 17.91, Glucose 351 H, Calcium 8.9 PLAN: Discharge home Diet: Regular diet Activity: Resume as tolerated Advised to stay indoors for at least 2 days. An appointment has been arranged with Dr. Mcdonald for October 04, 2016 at 2:15 pm No changes made in home medications Mr. Kitchen is alert and oriented x 3. He is ambulatory without use of assistive device or oxygen. He requires oxygen at night and reports he has this at home. He denies abdominal pain or nausea. Meal intakes have been good at 50-90%. No skin breakdown, rashes or irritation noted. Jb Mcdonald MD
[2016-09-28] MEDS: NORCO 10-325 PO PRN (10:24)
== END 2016-09-28 11:05 | disposition home or self-care (01) | DRG 195 ==
LOC: ED 21:07 → MEDSURG A 23:07
PROVIDERS: ADMIT Internal Medicine; ATTEND Internal Medicine
DX: J18.1 Lobar pneumonia, unspecified organism (principal); J44.9 Chronic obstructive pulmonary disease, unspecified; E86.0 Dehydration; I48.91 Unspecified atrial fibrillation; I25.10 Atherosclerotic heart disease of native coronary artery without angina pectoris; N40.0 Benign prostatic hyperplasia without lower urinary tract symptoms; F17.290 Nicotine dependence, other tobacco product, uncomplicated; E78.5 Hyperlipidemia, unspecified; Z85.118 Personal history of other malignant neoplasm of bronchus and lung; Z90.2 Acquired absence of lung [part of]; Z95.0 Presence of cardiac pacemaker; Z91.14 Patient's other noncompliance with medication regimen; Z79.899 Other long term (current) drug therapy
CPT/HCPCS: 36415; 80048; 80053; 82550; 82803; 83605; 84145; 84484; 85025; 87040; 87651; 87804; 87880; 93005; 93010; 94640; 96365; 96375; 99284

== ENCOUNTER 2016-11-13 17:29 | Inpatient (IN) ==
[2016-11-13] MEDS ORDERED: SODIUM CHLORIDE 1,000 ML IV STA (18:03)
--- NOTE | 2016-11-13 18:06 | ED.PDOC ---
General ED Provider: Dr. DAGO ECHEVERRIA JR Chief Complaint: Weakness Stated Complaint: Weak, body aches, fever. Fell 3 days ago. Rt shoulder pain.[ End]100.5 62 20 85% 110/64 8/10 lortab this AM Time Seen by Physician: 18:03 Mode of Arrival: Wheelchair Information Source: Patient Exam Limitations: No limitations Primary Care Provider: MILLIE RUSH Nursing and Triage Documentation Reviewed and Agree: No Review of Systems - Review Of Systems Constitutional: Reports: Fever, Malaise, Weakness Eyes: Reports: No symptoms Ears, Nose, Mouth, Throat: Reports: No symptoms Respiratory: Reports: Cough, Short of air Cardiac: Reports: No symptoms GI: Reports: No symptoms : Reports: No symptoms Musculoskeletal: Reports: Muscle pain Skin: Reports: No symptoms Neurological: Reports: Weakness Endocrine: Reports: No symptoms Hematologic/Lymphatic: Reports: No symptoms All Other Systems: Other Past Medical History - Past Medical History Previously Healthy: No Endocrine: Reports: DM 2, Dyslipidemia Cardiovascular: Reports: HI, Hypertension, Other (enlarged heart) Respiratory: Reports: COPD, Pneumonia, Other (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) Hematological: Reports: Anemia Gastrointestinal: Reports: None Genitourinary: Reports: None Neuro/Psych: Reports: None Musculoskeletal: Reports: None Cancer: Reports: Lung, Other (bladder tumor) Other Pertinent Past Medical History: 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 - Surgical History General Surgical History: Reports: Appendectomy, Pacemaker, Other (partial pneumonectomy right upper lobe-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) - Family History Family History: Reports: Cancer (sisters brothers mother all with due to brain tumors"mine skipped my head and got my lung") - Social History Smoking Status: Current every day smoker, Heavy tobacco smoker, Vaping Hx Substance Use: No Alcohol Screening: None Physical Exam - Physical Exam Appearance: Ill-appearing, Thin Ill-appearing: Moderate Pain Distress: Moderate Eyes: ROBERTO, EOMI, Conjunctiva clear ENT: Ears normal, Nose normal, Oropharynx normal Neck: Supple Respiratory: Airway patent, Breath sounds clear (lungs resonant consistent with surgery no rales), Breath sounds equal, Respirations nonlabored Cardiovascular: RRR, Pulses normal, No rub, No murmur GI/: Soft, Nontender, No masses, Bowel sounds normal, No Organomegaly Musculoskeletal: Normal strength, ROM intact, No edema, No calf tenderness Skin: Warm, Dry, Normal color Neurological: Sensation intact, Motor intact, Reflexes intact, Cranial nerves intact, Alert, Oriented Psychiatric: Affect appropriate, Mood appropriate Interpretation - EKG Interpretation Time of EKG #1: 18:05 Rate: Normal Rhythm: Other (paced at 60) ST Segment: Other Critical Care Note - Critical Care Note Total Time (mins): 0 Course - Course Hematology/Chemistry: 11/14/16 00:55 11/14/16 00:55 Orders, Labs, Meds: Lab Review 11/13/16 11/13/16 11/13/16 17:56 18:15 19:00 WBC 24.30 H RBC 4.32 L Hgb 12.2 L Hct 37.0 L MCV 85.6 MCH 28.2 MCHC 33.0 RDW Coeff of [place] 13.5 Plt Count 145 Immature Gran % (Auto) 1.5 Neut % (Auto) 83.0 Lymph % (Auto) 6.0 L [place] % (Auto) 9.3 Eos % (Auto) 0.0 Baso % (Auto) 0.2 Immature Gran # (Auto) 0.4 Neut # 20.2 H Lymph # 1.5 [place] # 2.3 H Eos # 0.0 Baso # 0.1 D-Dimer (Manual) 1945.72 Puncture Site Rbrach O2 Saturation 85.0 L ABG pH 7.393 ABG pCO2 42.9 ABG pO2 50.0 L* ABG HCO3 26.1 H ABG Total CO2 27 ABG Base Excess 1 FiO2 % 21.0 Sodium 138 Potassium 4.4 Chloride 99 Carbon Dioxide 27 Anion Gap 16.4 BUN 22 H Creatinine 1.55 H Estimated GFR (MDRD) 43.00 BUN/Creatinine Ratio 14.19 Glucose 210 H Lactic Acid 16.8 Calcium 9.9 Total Bilirubin 0.77 AST 19 ALT 14 Alkaline Phosphatase 85 Total Creatine Kinase 274 CK-MB (CK-2) 0.6 CK-MB (CK-2) % 0.50295 Troponin I 0.0380 B-Natriuretic Peptide 722 H Total Protein 7.3 Albumin 3.4 Globulin 3.9 Albumin/Globulin Ratio 0.87 Procalcitonin 0.63 Urine Color Yellow Urine Clarity Slightly Urine pH 5.0 Ur Specific [place] 1.025 Urine Protein 2+ Urine Glucose (UA) Negative Urine Ketones 1+ Urine Blood 1+ Urine Nitrite Negative Urine Bilirubin 2+ Urine Urobilinogen 1.0 Ur Leukocyte Esterase Negative Urine Microscopic RBC 2-5 Ur Squamous Epith Cells 0-2 Amorphous Sediment Trace Urine Bacteria 1+ Fine Granular Casts 5-10 Influenza A (Rapid) Negative Influenza B (Rapid) Negative Orders Category Date Time Status ADMIT PATIENT INPATIENT .[facility] (MONITORED BED) ADMISSION 11/13/16 19: 10 Active ABG DRAW REQUEST Stat CARDIO 11/13/16 17:57 Completed EKG-(ED ONLY) Stat CARDIO 11/13/16 17:55 Completed EKG-(IP & OP ONLY) DAILY CARDIO 11/14/16 06:00 Completed EKG-(IP & OP ONLY) DAILY CARDIO 11/15/16 06:00 Ordered EKG-(IP & OP ONLY) DAILY CARDIO 11/16/16 06:00 Ordered OXYGEN Routine CARDIO 11/13/16 19:12 Active ACTIVITY .Early Mobilization for VTE Prevention CARE 11/13/16 19:10 Completed BLOOD GLUCOSE MONITORING 0630,1100,1700,2100 CARE 11/13/16 19:12 Active GIVE HS SNACK 2100 CARE 11/13/16 19:12 Active INTAKE & OUTPUT Q8HR CARE 11/13/16 19:10 Active TELEMETRY MONITORING TELE CARE 11/13/16 19:11 Active VITAL SIGNS Q4HR CARE 11/13/16 19:10 Active ADA 1800 BETZY. DIET DIETARY 11/13/16 Breakfast Ordered CARDIAC DIET DIETARY 11/13/16 Breakfast Ordered HS SNACK DIETARY 11/13/16 Dinner Ordered ED APPLY O2 .ONCE EMERGENCY 11/13/16 18:03 Active ED MANAGER FRONT APPLIED .ONCE EMERGENCY 11/13/16 18:03 Active ED IV/MEDIPORT/POWERPORT .ONCE EMERGENCY 11/13/16 17:55 Active ABG Stat LAB 11/13/16 17:56 Completed B-TYPE NATRIURETIC PEPTIDE Stat LAB 11/13/16 18:15 Completed BLOOD CULTURE Stat LAB 11/13/16 18:15 Results CBC W/ AUTO DIFF DAILY@0600 LAB 11/14/16 00:55 Completed CBC W/ AUTO DIFF DAILY@0600 LAB 11/15/16 06:00 Ordered CBC W/ AUTO DIFF DAILY@0600 LAB 11/16/16 06:00 Ordered CBC W/ AUTO DIFF DAILY@0600 LAB 11/17/16 06:00 Ordered CBC W/ AUTO DIFF DAILY@0600 LAB 11/18/16 06:00 Ordered CBC W/ AUTO DIFF DAILY@0600 LAB 11/19/16 06:00 Ordered CBC W/ AUTO DIFF DAILY@0600 LAB 11/20/16 06:00 Ordered CBC W/ AUTO DIFF DAILY@0600 LAB 11/21/16 06:00 Ordered CBC W/ AUTO DIFF DAILY@0600 LAB 11/22/16 06:00 Ordered CBC W/ AUTO DIFF DAILY@0600 LAB 11/23/16 06:00 Ordered CBC W/ AUTO DIFF DAILY@0600 LAB 11/24/16 06:00 Ordered CBC W/ AUTO DIFF DAILY@0600 LAB 11/25/16 06:00 Ordered CBC W/ AUTO DIFF DAILY@0600 LAB 11/26/16 06:00 Ordered CBC W/ AUTO DIFF DAILY@0600 LAB 11/27/16 06:00 Ordered CBC W/ AUTO DIFF DAILY@0600 LAB 11/28/16 06:00 Ordered CBC W/ AUTO DIFF DAILY@0600 LAB 11/29/16 06:00 Ordered CBC W/ AUTO DIFF DAILY@0600 LAB 11/30/16 06:00 Ordered CBC W/ AUTO DIFF DAILY@0600 LAB 12/01/16 06:00 Ordered CBC W/ AUTO DIFF DAILY@0600 LAB 12/02/16 06:00 Ordered CBC W/ AUTO DIFF DAILY@0600 LAB 12/03/16 06:00 Ordered CBC W/ AUTO DIFF Stat LAB 11/13/16 18:15 Completed COMPREHENSIVE METABOLIC PANEL DAILY@0600 LAB 11/14/16 00:55 Completed COMPREHENSIVE METABOLIC PANEL DAILY@0600 LAB 11/15/16 06:00 Ordered COMPREHENSIVE METABOLIC PANEL DAILY@0600 LAB 11/16/16 06:00 Ordered COMPREHENSIVE METABOLIC PANEL DAILY@0600 LAB 11/17/16 06:00 Ordered COMPREHENSIVE METABOLIC PANEL DAILY@0600 LAB 11/18/16 06:00 Ordered COMPREHENSIVE METABOLIC PANEL DAILY@0600 LAB 11/19/16 06:00 Ordered COMPREHENSIVE METABOLIC PANEL DAILY@0600 LAB 11/20/16 06:00 Ordered COMPREHENSIVE METABOLIC PANEL DAILY@0600 LAB 11/21/16 06:00 Ordered COMPREHENSIVE METABOLIC PANEL DAILY@0600 LAB 11/22/16 06:00 Ordered COMPREHENSIVE METABOLIC PANEL DAILY@0600 LAB 11/23/16 06:00 Ordered COMPREHENSIVE METABOLIC PANEL DAILY@0600 LAB 11/24/16 06:00 Ordered COMPREHENSIVE METABOLIC PANEL DAILY@0600 LAB 11/25/16 06:00 Ordered COMPREHENSIVE METABOLIC PANEL DAILY@0600 LAB 11/26/16 06:00 Ordered COMPREHENSIVE METABOLIC PANEL DAILY@0600 LAB 11/27/16 06:00 Ordered COMPREHENSIVE METABOLIC PANEL DAILY@0600 LAB 11/28/16 06:00 Ordered COMPREHENSIVE METABOLIC PANEL DAILY@0600 LAB 11/29/16 06:00 Ordered COMPREHENSIVE METABOLIC PANEL DAILY@0600 LAB 11/30/16 06:00 Ordered COMPREHENSIVE METABOLIC PANEL DAILY@0600 LAB 12/01/16 06:00 Ordered COMPREHENSIVE METABOLIC PANEL DAILY@0600 LAB 12/02/16 06:00 Ordered COMPREHENSIVE METABOLIC PANEL DAILY@0600 LAB 12/03/16 06:00 Ordered COMPREHENSIVE METABOLIC PANEL Stat LAB 11/13/16 18:15 Completed CREATINE KINASE Q8H LAB 11/14/16 00:55 Completed CREATINE KINASE Q8H LAB 11/14/16 10:00 Completed CREATINE KINASE Stat LAB 11/13/16 18:15 Completed D-DIMER Stat LAB 11/13/16 18:15 Completed LACTIC ACID Stat LAB 11/13/16 18:15 Completed MOLECULAR GROUP A STREP Stat LAB 11/13/16 18:15 Completed PROCALCITONIN Stat LAB 11/13/16 18:15 Completed RAPID FLU A/B Stat LAB 11/13/16 18:15 Completed STREP SCREEN Stat LAB 11/13/16 18:15 Completed TROPONIN I Q8H LAB 11/14/16 00:55 Completed TROPONIN I Q8H LAB 11/14/16 10:00 Completed TROPONIN I Stat LAB 11/13/16 18:15 Completed UA [URINALYSIS C & S IF INDICATED] Stat LAB 11/13/16 19:00 Completed URINE CULTURE Stat LAB 11/13/16 19:27 Results 0.9 % Sodium Chloride [Saline Flush] MEDS 11/13/16 17:56 Active 1 syr IVF PRN PRN Alprazolam [Xanax] MEDS 11/13/16 21:00 Discontinued 1 mg PO BEDTIME Aspirin [Aspirin EC] MEDS 11/14/16 08:00 Active 81 mg PO DAILYWM Atorvastatin Calcium [Lipitor] MEDS 11/13/16 21:00 Active 20 mg PO BEDTIME Cholecalciferol (Vitamin D3) [Vitamin D] MEDS 11/14/16 09:00 Active 1,000 unit PO DAILY Cyclobenzaprine HCl [Flexeril] MEDS 11/13/16 19:13 Active 10 mg PO DAILY PRN Diltiazem HCl [Cardizem] MEDS 11/13/16 21:00 Active 60 mg PO BID Hydrocodone Bit/Acetaminophen [[place] 10-325] MEDS 11/13/16 19:13 Active 1 tab PO TID PRN Levofloxacin/D5w [Levaquin] 500 mg MEDS 11/13/16 19:30 Discontinued Premix 100 ml D5w 1 bag IV DAILY Multivitamin MEDS 11/14/16 09:00 Active 1 cap PO DAILY Nicotine 21 mg [Nicoderm 21 mg] MEDS 11/13/16 18:39 Discontinued 1 patch TD ONCE STA Polyethylene Glycol 3350 [Miralax] MEDS 11/13/16 21:00 Active 17 gm PO BEDTIME Sodium Chloride 0.9% [Sodium Chloride] 1,000 ml MEDS 11/13/16 19:30 Active IV 75 mls/hr Sodium Chloride 0.9% [Sodium Chloride] 1,000 ml MEDS 11/13/16 18:03 Discontinued IV BOLUS Sotalol HCl [Betapace] MEDS 11/13/16 21:00 Active 40 mg PO BID Tamsulosin HCl [Flomax] MEDS 11/13/16 21:00 Active 0.4 mg PO BEDTIME CHEST, 2 VIEWS PA & LAT Stat RADS 11/13/16 17:55 Completed SHOULDER, RIGHT MIN 2V Stat RADS 11/13/16 17:56 Completed Medications Generic Name Dose Route Start Last Admin Trade Name Obinnaq PRN Reason Stop Dose Admin Acetaminophen/Hydrocodone Bitart 1 tab 11/13/16 19:13 [place] 10-325 PO TID PRN Severe Pain Alprazolam 1 mg 11/14/16 21:00 11/14/16 20:06 Xanax PO 1 mg BEDTIME PRIYANKA Administration Aspirin 81 mg 11/14/16 08:00 11/14/16 08:22 Aspirin Ec PO 81 mg DAILYWM PRIYANKA Administration Atorvastatin Calcium 20 mg 11/13/16 21:00 11/14/16 20:06 Lipitor PO 20 mg BEDTIME PRIYANKA Administration Cholecalciferol 1,000 unit 11/14/16 09:00 11/14/16 08:22 Vitamin D PO 1,000 unit DAILY PRIYANKA Administration Cyclobenzaprine HCl 10 mg 11/13/16 19:13 Flexeril PO DAILY PRN Spasms Diltiazem HCl 60 mg 11/13/16 21:00 11/14/16 20:05 Cardizem PO 60 mg BID PRIYANKA Administration Formoterol Fumarate 1 mcg 11/15/16 06:00 Perforomist NEB RTDAILY PRIYANKA Hydrocortisone Sodium Succinate 100 mg 11/14/16 08:30 11/14/16 20:06 Solu-Cortef 100 Mg IVP 100 mg Q8HR PRIYANKA Administration Sodium Chloride 1,000 mls @ 75 mls/hr 11/13/16 19:30 11/14/16 19:25 Sodium Chloride IV 75 mls/hr .[id number] PRIYANKA Administration Levofloxacin/Dextrose 250 mg/ 50 mls @ 75 mls/hr 11/14/16 21:00 11/14/16 20: 05 Dextrose IV 75 mls/hr BEDTIME PRIYANKA Administration Insulin Human Regular 0 unit 11/14/16 08:04 11/14/16 21:07 Humulin R SUBCUT 6 unit PRN PRN Administration hyperglycemia Protocol Multivitamins 1 cap 11/14/16 09:00 11/14/16 08:23 Multivitamin PO 1 cap DAILY PRIYANKA Administration Pantoprazole Sodium 40 mg 11/14/16 07:30 11/14/16 08:22 Protonix PO 40 mg QDAC PRIYANKA Administration Polyethylene Glycol 17 gm 11/13/16 21:00 11/14/16 20:06 Miralax PO 17 gm BEDTIME PRIYANKA Administration Sodium Chloride 1 syr 11/13/16 17:56 Saline Flush IVF PRN PRN To flush IV Sotalol HCl 40 mg 11/13/16 21:00 11/14/16 20:05 Betapace PO 40 mg BID PRIYANKA Administration Tamsulosin HCl 0.4 mg 11/13/16 21:00 11/14/16 20:05 Flomax PO 0.4 mg BEDTIME PRIYANKA Administration Discontinued Medications Generic Name Dose Route Start Last Admin Trade Name Freq PRN Reason Stop Dose Admin Formoterol Fumarate 1 mcg 11/14/16 07:30 11/14/16 09:46 Perforomist NEB Not Given RTDAILY PRIYANKA Sodium Chloride 1,000 mls @ 1,000 mls/hr 11/13/16 18:03 11/13/16 18:52 Sodium Chloride IV 11/13/16 19:02 1,000 mls/hr BOLUS STA Administration Levofloxacin/Dextrose 500 mg/ 100 mls @ 100 mls/hr 11/13/16 19:30 11/13/16 21 :04 Dextrose IV Not Given DAILY PRIYANKA Nicotine 1 patch 11/13/16 18:39 11/13/16 19:08 Nicoderm 21 Mg TD 11/13/16 18:40 1 patch ONCE STA Administration Non-Formulary Medication 1 mg 11/13/16 21:00 11/13/16 21:04 Alprazolam [Xanax] PO Not Given BEDTIME PRIYANKA Vital Signs: Temp Pulse Resp BP Pulse Ox 11/13/16 17:30 100.5 F H 62 20 110/64 85 L Departure - Departure Time of Disposition: 19:10 Disposition: ADMITTED INPATIENT Discharge Problem: Fever Condition: Stable Pt referred to PMD for follow-up: Yes Allergies/Adverse Reactions: Allergies codeine [Codeine] Adverse Reaction (Verified 11/13/16 17:38) Penicillins Adverse Reaction (Verified 11/13/16 17:38) propoxyphene HCl [From Darvon] Adverse Reaction (Verified 11/13/16 17:38) Home Medications: Ambulatory Orders Alprazolam [Xanax] 1 mg PO BEDTIME 01/05/13 Atorvastatin Calcium [Lipitor] 20 mg PO BEDTIME 01/05/13 Dexlansoprazole [Dexilant] 60 mg PO DAILY 01/05/13 Cyclobenzaprine HCl [Flexeril] 10 mg PO DAILY PRN 02/03/14 Hydrocodone/Acetaminophen [Hydrocodon-Acetaminophn 10-325] 1 each PO TID PRN Diltiazem HCl [Cardizem] 60 mg PO BID 12/04/15 Polyethylene Glycol 3350 [Miralax] 17 gm PO BEDTIME 12/04/15 Arformoterol Tartrate [Brovana] 1 vial NEB DAILY 04/04/16 Aspirin [Ecotrin] 81 mg PO DAILYWM 07/11/16 Sotalol HCl [Betapace] 40 mg PO BID 07/11/16 Tamsulosin HCl [Flomax] 0.4 mg PO BEDTIME 07/11/16 Cholecalciferol (Vitamin D3) [Vitamin D] 1,000 unit PO DAILY 09/12/16 Multivitamin 1 cap PO DAILY 09/12/16
[2016-11-13 18:18] LABS: ABG BASE EXCESS 1 (-2.0-2.0); ABG HCO3 26.1 (22.0-26.0); ABG PCO2 42.9 mmHg (35-45); ABG PH 7.393 (7.35-7.45); ABG TCO2 27 (22.0-28.0)
[2016-11-13 18:24] LABS: BASOPHILS # (AUTO) 0.1 K/uL (0-0.2); BASOPHILS % (AUTO) 0.2 % (0.0-3.0); HEMOGLOBIN 12.2 g/dl (14.0-18.0); IMMATURE GRANULOCYTE % (AUTO) 1.5 % (0.0-5.0); LYMPHOCYTES # (AUTO) 1.5 K/uL (0.60-3.4); MEAN CORPUSCULAR HEMOGLOBIN 28.2 pg (27.0-31.0); MEAN CORPUSCULAR VOLUME 85.6 fl (80.0-94.0); MONOCYTES # (AUTO) 2.3 K/uL (0.4-2.0); MONOCYTES % (AUTO) 9.3 (0-10); NEUTROPHILS # (AUTO) 20.2 K/ul (2.0-6.9); PLATELET COUNT 145 10^3/uL (140-440); RED BLOOD COUNT 4.32 10^6/ul (4.70-6.10)
[2016-11-13] MEDS ORDERED: NICODERM 21 MG TD STA (18:39)
[2016-11-13 18:42] LABS: FLU INTERNAL QC INTERNAL QC VALID; RAPID FLU A NEGATIVE (NEGATIVE); RAPID FLU B NEGATIVE (NEGATIVE)
[2016-11-13 19:02] LABS: ALBUMIN 3.4 g/dL (3.4-5.0); ALBUMIN/GLOBULIN RATIO 0.87; ANION GAP 16.4; BILIRUBIN,TOTAL 0.77 mg/dL (0.00-1.20); BUN/CREATININE RATIO 14.19; CALCIUM 9.9 mg/dL (8.2-10.2); CREATININE 1.55 mg/dL (0.60-1.10); POTASSIUM 4.4 mmol/L (3.5-5.1); TOTAL PROTEIN 7.3 g/dL (5.8-8.1); TROPONIN I 0.038 ng/ml (0.0000-0.4000)
[2016-11-13 19:03] LABS: CREATINE KINASE MB 0.6 ng/ml (0.0-3.6)
[2016-11-13] MEDS ORDERED: NORCO 10-325 PO PRN (19:13)
[2016-11-13] MEDS ORDERED: FLEXERIL PO PRN (19:13)
[2016-11-13 19:18] LABS: BILIRUBIN,URINE 2+ (NEGATIVE); KETONES,URINE 1+ (NEGATIVE); LEUKOCYTE ESTERASE ,URINE Negative (NEGATIVE); NITRITE,URINE Negative (NEGATIVE); PROTEIN,URINE 2+ (NEGATIVE); URINE, BLOOD 1+ (NEGATIVE)
[2016-11-13 19:26] LABS: ADD URINE MICROSCOPIC YES; BACTERIA,URINE 1+ (NOT PRESENT)
[2016-11-13] MEDS ORDERED: LEVAQUIN 500 MG in PREMIX 100 ML D5W 1 BAG IV SCH (19:30)
[2016-11-13 20:29] VITALS: BMI 23.0
[2016-11-13] MEDS: SODIUM CHLORIDE 1,000 ML IV SCH (20:33)
[2016-11-13] MEDS ORDERED: XANAX ONE (20:58)
[2016-11-13] MEDS ORDERED: LEVAQUIN 100 ML IV ONE (20:58)
[2016-11-13] MEDS ORDERED: CARDIZEM ONE (20:59)
[2016-11-13] MEDS ORDERED: NON-FORMULARY MEDICATION (Alprazolam [Xanax] 1 MG) PO SCH ×22 (21:00)
[2016-11-13] MEDS: FLOMAX PO SCH (21:03)
[2016-11-13] MEDS: BETAPACE PO SCH (21:04)
[2016-11-13] MEDS: CARDIZEM PO SCH (21:04)
[2016-11-13] MEDS: LIPITOR PO SCH (21:04)
[2016-11-13] MEDS: MIRALAX PO SCH (21:04)
[2016-11-14 01:16] LABS: ALBUMIN 2.5 g/dL (3.4-5.0); ALBUMIN/GLOBULIN RATIO 0.76; ANION GAP 14.3; BILIRUBIN,TOTAL 0.49 mg/dL (0.00-1.20); BUN/CREATININE RATIO 15.94; CALCIUM 8.7 mg/dL (8.2-10.2); CREATININE 1.38 mg/dL (0.60-1.10); POTASSIUM 4.3 mmol/L (3.5-5.1); TOTAL PROTEIN 5.8 g/dL (5.8-8.1)
[2016-11-14 01:26] LABS: BASOPHILS # (AUTO) 0.1 K/uL (0-0.2); BASOPHILS % (AUTO) 0.4 % (0.0-3.0); HEMATOCRIT 30.9 % (42.0-52.0); HEMOGLOBIN 10.1 g/dl (14.0-18.0); IMMATURE GRANULOCYTE % (AUTO) 3.2 % (0.0-5.0); LYMPHOCYTES # (AUTO) 2.9 K/uL (0.60-3.4); LYMPHOCYTES % (AUTO) 11.6 (10.0-50.0); MEAN CORPUSCULAR HEMOGLOBIN 28.1 pg (27.0-31.0); MEAN CORPUSCULAR HGB CONC 32.7 (31.8-35.4); MEAN CORPUSCULAR VOLUME 85.8 fl (80.0-94.0); MONOCYTES # (AUTO) 3.1 K/uL (0.4-2.0); MONOCYTES % (AUTO) 12.5 (0-10); NEUTROPHILS # (AUTO) 17.9 K/ul (2.0-6.9); NEUTROPHILS % (AUTO) 72.3; PLATELET COUNT 124 10^3/uL (140-440)
[2016-11-14 01:32] LABS: TROPONIN I 0.031 ng/ml (0.0000-0.4000)
[2016-11-14 01:33] LABS: CREATINE KINASE MB 0.5 ng/ml (0.0-3.6)
[2016-11-14] MEDS: SODIUM CHLORIDE 1,000 ML IV SCH ×2 (05:28→19:25)
[2016-11-14] MEDS ORDERED: PERFOROMIST NEB SCH (07:30)
--- NOTE | 2016-11-14 07:46 | DI ---
EXAM: Chest two view, frontal and lateral views. HISTORY: Cough. COMPARISON: 09/25/2016. FINDINGS: Right-sided pacemaker noted. Partial right lung resection changes noted with stable righ t apical scarring and volume loss. Reticulonodular opacities seen throughout both lungs which are s table. No large pleural effusion or pneumothorax identified. Heart size is normal. Aortic atheros clerotic calcifications are present. Old right-sided rib fractures are seen. Since prior study, th ere has been no significant interval change. IMPRESSION: Stable appearance of the chest.
--- NOTE | 2016-11-14 07:47 | DI ---
EXAM: Right shoulder four views HISTORY: Fall onto shoulder COMPARISON: None FINDINGS: No fracture or dislocation. Mild osteoarthritis acromioclavicular joint with small osteop hyte formation. Mild osteoarthritis glenohumeral joint. Small calcification in the region of the c oracoclavicular ligament may be due to old soft tissue injury. There is a cardiac pacer. IMPERSSION: 1. No fracture or dislocation. 2. Mild osteoarthritis. 3. Small calcification in the region of the coracoclavicular ligament may be due to old soft tissue injury
[2016-11-14] MEDS: ASPIRIN EC PO SCH (08:22)
[2016-11-14] MEDS: PROTONIX PO SCH (08:22)
[2016-11-14] MEDS: VITAMIN D PO SCH (08:22)
[2016-11-14] MEDS: BETAPACE PO SCH ×2 (08:23→20:05)
[2016-11-14] MEDS: MULTIVITAMIN PO SCH (08:23)
[2016-11-14] MEDS: CARDIZEM PO SCH ×2 (08:23→20:05)
[2016-11-14] MEDS: SOLU-CORTEF 100 MG IVP SCH ×3 (08:24→20:06)
[2016-11-14] MEDS ORDERED: NON-FORMULARY MEDICATION (Dexlansoprazole [Dexilant] 60 MG) PO SCH ×22 (09:00)
[2016-11-14] MEDS ORDERED: NON-FORMULARY MEDICATION (Arformoterol Tartrate [Brovana] 1 VIAL) NEB SCH (09:00)
--- NOTE | 2016-11-14 09:33 | PCM.PROG ---
Attending Provider: ATTENDING PROVIDER: Dr. MILLIE RUSH DATE OF SERVICE: 11/14/16 SUBJECTIVE: This 81 year old WHITE/ M was hospitalized 11/13/16. The patient is admitted with fever and flu type of symptoms and weakness. Condition has improved. He is feeling better, still weak and is sleepy. The is in the room. REVIEW OF SYSTEMS: CONSTITUTIONAL: Weakness. No night sweats. No fever or chills. HEENT: Eyes: No visual changes. No eye pain. No eye discharge. ENT: No runny nose. No epistaxis. No sinus pain. No odynophagia. No congestion. RESPIRATORY: Mild cough and no congestion. No hemoptysis. CARDIOVASCULAR: No angina symptoms. No CHF symptoms. No atypical chest pain for CAD. No palpitations. No shortness of breath. GASTROINTESTINAL: Poor appetite. No abdominal pain. No nausea or vomiting. No diarrhea or constipation. No hematemesis. No hematochezia. GENITOURINARY: No urgency. No frequency. No dysuria. No hematuria. No obstructive symptoms. No discharge. No pain. No significant abnormal bleeding. MUSCULOSKELETAL: No musculoskeletal pain; no joint swelling. NEUROLOGICAL: Awake, alert, oriented to time, place and person. No headache. No neck pain. No syncope. No seizures. No dizziness. PSYCHIATRIC: Not anxious. No depression. No suicidal thoughts. No homicidal thoughts. SKIN: No rash. No lesions. No wounds. ENDOCRINE: No unexplained weight loss. No weight gain. HEMATOLOGIC/LYMPHATIC: No anemia. No purpura. No petechiae. No prolonged or excessive bleeding. No palpable lymph nodes. PHYSICAL EXAMINATION: GENERAL: The patient is awake, alert and oriented, lying in bed in no distress. VITAL SIGNS: Temperature 98.0 F, Pulse 60, Respiratory Rate 20, BP 78/44, Pulse Ox 96% HEENT: Head normocephalic, atraumatic. Eyes: Extraocular muscles are intact. Pupils are equal, round and reactive to light and accommodation. Ears: No lesions. Nose appeared normal. Throat: No exudate or erythema. NECK: Supple. No JVD, no carotid bruit. No lymphadenopathy or thyromegaly. LUNGS: Decreased breath sounds. Clear to auscultation. Percussion note normal. Chest symmetrical. HEART: S1, S2, no S3. No murmurs. No cyanosis or clubbing. No ascites. Pulses: Dorsalis pedis and posterior tibial pulses +1 to +2 both sides. ABDOMEN: Soft. Non-tender. Bowel sounds active. No CVA tenderness. No mass felt. EXTREMITIES: No edema. Full range of motion of all extremities, equal. NEUROLOGIC: No focal deficit. Cranial nerves II through XII are grossly intact. No headache, no double vision or headache. SKIN: Not dry. Intact. Turgor-normal. LYMPHATIC: No palpable lymph nodes/no lymphedema. MUSCULOSKELETAL: Normal joints with no swelling. Muscle tone is normal. LAB REVIEW: 11/14/16 00:55 11/14/16 00:55 11/14/16 00:55: WBC 24.70 H, RBC 3.60 L, Hgb 10.1 L, Hct 30.9 L D, MCV 85.8, MCH 28.1, MCHC 32.7, RDW Coeff of [place] 13.4, Plt Count 124 L, Immature Gran % ( Auto) 3.2, Neut % (Auto) 72.3, Lymph % (Auto) 11.6, [place] % (Auto) 12.5 H, Eos % (Auto) 0.0, Baso % (Auto) 0.4, Immature Gran # (Auto) 0.8, Neut # 17.9 H, Lymph # 2.9, Foster # 3.1 H, Eos # 0.0, Baso # 0.1, Sodium 139, Potassium 4.3, Chloride 102, Carbon Dioxide 27, Anion Gap 14.3, BUN 22 H, Creatinine 1.38 H, Estimated GFR (MDRD) 49.00, BUN/Creatinine Ratio 15.94, Glucose 199 H, Calcium 8.7, Total Bilirubin 0.49, AST 20, ALT 12, Alkaline Phosphatase 65, Total Creatine Kinase 307, CK-MB (CK-2) 0.5, CK-MB (CK-2) % 0.79005, Troponin I 0.0310, Total Protein 5.8, Albumin 2.5 L, Globulin 3.3, Albumin/Globulin Ratio 0.76 ASSESSMENT: 1. Flu syndrome/bronchitis 2. Dehydration 3. Leukocytosis 4. Hyperglycemia 5. UTI PLAN: 1. Continue all medications 2. Levaquin 3. IV fluids 4. Solu-Cortef 100 mg q.8hr one dose now 5. Sliding scale insulin Plan and coordination of the patient's care discussed in the presence of Incubator Machine Operator and nurse. CONDITION: Stable SCRIBED BY: RAHUL PALACIOS Internet Marketing Specialist scribed while in presence of service performed by Dr. MILLIE RUSH on 11/14/16 ([id number])
--- NOTE | 2016-11-14 10:28 | PN ---
DATE OF SERVICE: 11/13/16 ADMITTING NOTE REASON FOR HOSPITALIZATION: Weakness, Leukocytosis, abnormal blood gasses and fever of 100.5 HISTORY OF PRESENT ILLNESS: The patient is an 81 year old white male hospitalized through the emergency room by Dr. Lowery who called me. The patient's problems and complaints. The patient was brought to the emergency room by the . The patient has weakness , been running fever and chill with poor appetite for past 2-3 days. He has not been able to walk on his own with support and this is kind of unusual. REVIEW OF SYSTEMS: CONSTITUTIONAL: No night sweats. Weakness and fatigue. Fever and chills. HEENT: Eyes: No visual changes. No eye pain. No eye discharge. ENT: No runny nose. No epistaxis. No sinus pain. No sore throat. No odynophagia. No ear pain. No congestion. RESPIRATORY: Mild cough as usual as patient is heavy smoker with chronic lung disease. No congestion. No hemoptysis. CARDIOVASCULAR: No angina symptoms. No CHF symptoms. No atypical chest pain for CAD. No palpitations. Shortness of breath. Pleuritic type of pain. No PND. No Orthopnea. GASTROINTESTINAL: No abdominal pain. No nausea or vomiting. No diarrhea or constipation. No hematemesis. No hematochezia. Poor appetite. GENITOURINARY: No urgency. No frequency. No dysuria. No hematuria. No obstructive symptoms. No discharge. No pain. No significant abnormal bleeding. MUSCULOSKELETAL: No musculoskeletal pain. No joint swelling. No arthritis. Weakness. NEUROLOGICAL: No headache. No neck pain. No syncope. No seizures. No dizziness. PSYCHIATRIC: Not anxious. No depression. No suicidal thoughts. No homicidal thoughts. SKIN: No rash. No lesions. No wounds. ENDOCRINE: No unexplained weight loss. No weight gain. HEMATOLOGIC/LYMPHATIC: No anemia. No purpura. No petechiae. No prolonged or excessive bleeding. No palpable lymph nodes. PHYSICAL EXAMINATION: GENERAL: The patient is oriented to time, place and person and weak. VITAL SIGNS: HEENT: Head normocephalic, atraumatic. Eyes: Extraocular muscles are intact. Pupils are equal, round and reactive to light and accommodation. Ears: No lesions. Nose appeared normal. Throat: No exudate or erythema. Mucosa membrane dry. NECK: Supple. No JVD, no carotid bruit. No lymphadenopathy or thyromegaly. LUNGS: Decreased breath sounds with mild wheeze bilaterally. Percussion note normal. Chest symmetrical. HEART: S1, S2, no S3. No murmurs. No cyanosis or clubbing. No ascites. Pulses: Dorsalis pedis and posterior tibial pulses +1. ABDOMEN: Soft. Nontender. Bowel sounds active. No CVA tenderness. No mass felt. EXTREMITIES: No edema. Full range of motion of all extremities, equal. NEUROLOGIC: No focal deficit. Cranial nerves II through XII are grossly intact. No headache, no double vision or headache. SKIN: Dry. Intact. Turgor - normal. LYMPHATIC: No palpable lymph nodes/no lymphedema. MUSCULOSKELETAL: Normal joints with no swelling. Muscle tone is normal. ASSESSMENT: 1. Flu type of symptoms with fever, weakness and poor appetite. 2. Chronic bronchitis 3. Sever chronic lung disease 4. C of the lung, resection 5. Continued smoking 6. Hyperglycemia versus diabetes 7. Dehydration 8. Pacemaker 9. History of hypertension PLAN: 1. Levaquin 500mg Q daily 2. IV fluids 75cc D5 1/2 normal saline 3. Steroids 4. NEBS treatment 5. Continue the rest of the home medications as before 6. Counseling for smoking done 7. Telemetry 8. EKG 9. Routine labs with ABGS all done, reviewed CONDITION: Stable PROGNOSIS: Guarded. TIME SPENT: More than 30 minutes. MTDD
[2016-11-14 10:46] LABS: TROPONIN I 0.022 ng/ml (0.0000-0.4000)
[2016-11-14 10:47] LABS: CREATINE KINASE MB 0.6 ng/ml (0.0-3.6)
[2016-11-14] MEDS: HUMULIN R SUBCUT PRN ×3 (11:17→21:07)
[2016-11-14] MEDS: FLOMAX PO SCH (20:05)
[2016-11-14] MEDS: LEVAQUIN 250 MG in PREMIX 50 ML D5W 1 BAG IV SCH (20:05)
[2016-11-14] MEDS: MIRALAX PO SCH (20:06)
[2016-11-14] MEDS: LIPITOR PO SCH (20:06)
[2016-11-14] MEDS ORDERED: XANAX PO SCH (21:00)
[2016-11-15 04:43] LABS: BASOPHILS % (AUTO) 0.1 % (0.0-3.0); HEMATOCRIT 29.2 % (42.0-52.0); HEMOGLOBIN 9.6 g/dl (14.0-18.0); IMMATURE GRANULOCYTE % (AUTO) 1.3 % (0.0-5.0); LYMPHOCYTES # (AUTO) 1.2 K/uL (0.60-3.4); LYMPHOCYTES % (AUTO) 10.2 (10.0-50.0); MEAN CORPUSCULAR HEMOGLOBIN 27.8 pg (27.0-31.0); MEAN CORPUSCULAR HGB CONC 32.9 (31.8-35.4); MEAN CORPUSCULAR VOLUME 84.6 fl (80.0-94.0); MONOCYTES # (AUTO) 0.6 K/uL (0.4-2.0); MONOCYTES % (AUTO) 4.8 (0-10); NEUTROPHILS % (AUTO) 83.6; PLATELET COUNT 127 10^3/uL (140-440); RED BLOOD COUNT 3.45 10^6/ul (4.70-6.10); WHITE BLOOD COUNT 11.96 K/ul (4.2-10.2)
[2016-11-15 05:07] LABS: ALBUMIN 2.4 g/dL (3.4-5.0); ALBUMIN/GLOBULIN RATIO 0.77; ANION GAP 10.5; BILIRUBIN,TOTAL 0.26 mg/dL (0.00-1.20); BUN/CREATININE RATIO 17.43; CALCIUM 8.8 mg/dL (8.2-10.2); CREATININE 1.09 mg/dL (0.60-1.10); POTASSIUM 4.5 mmol/L (3.5-5.1); TOTAL PROTEIN 5.5 g/dL (5.8-8.1)
[2016-11-15] MEDS: PERFOROMIST NEB SCH (05:40)
[2016-11-15] MEDS: SOLU-CORTEF 100 MG IVP SCH ×3 (05:58→21:12)
[2016-11-15] MEDS: PROTONIX PO SCH (05:58)
[2016-11-15] MEDS: HUMULIN R SUBCUT PRN ×4 (05:59→20:51)
[2016-11-15] MEDS ORDERED: NORCO 7.5-325 PO PRN (07:56)
[2016-11-15] MEDS: BETAPACE PO SCH ×2 (08:33→20:50)
[2016-11-15] MEDS: ASPIRIN EC PO SCH (08:33)
[2016-11-15] MEDS: CARDIZEM PO SCH ×2 (08:34→20:51)
[2016-11-15] MEDS: MULTIVITAMIN PO SCH (08:34)
[2016-11-15] MEDS: VITAMIN D PO SCH (08:35)
[2016-11-15 09:12] LABS: ABG PCO2 47.4 mmHg (35-45)
[2016-11-15 09:13] LABS: ABG BASE EXCESS 1 (-2.0-2.0); ABG HCO3 26.2 (22.0-26.0); ABG TCO2 28 (22.0-28.0)
[2016-11-15] MEDS: SODIUM CHLORIDE 1,000 ML IV SCH (10:06)
--- NOTE | 2016-11-15 10:07 | PCM.PROG ---
Attending Provider: ATTENDING PROVIDER: Dr. MILLIE RUSH DATE OF SERVICE: 11/15/16 SUBJECTIVE: This 81 year old WHITE/ M was hospitalized 11/13/16. The patient is hospitalized with fever and flu type of symptoms. The patient is still weak. The patient was dehydrated and IV fluids were given. Kidney functions are much better and hydration status improved. The patient looks somewhat drowsy, will decrease the dose of Xanax to 0.5 mg. Will discontinue Flexeril (the patient has not taken), will decrease [place] to 7.5 mg t.i.d. p.r.n. I have encouraged the patient to be up and about with help from the nurses. REVIEW OF SYSTEMS: CONSTITUTIONAL: Weakness. No night sweats. No fever or chills. HEENT: Eyes: No visual changes. No eye pain. No eye discharge. ENT: No runny nose. No epistaxis. No sinus pain. No odynophagia. No congestion. RESPIRATORY: No cough, no congestion. No hemoptysis. CARDIOVASCULAR: No angina symptoms. No CHF symptoms. No atypical chest pain for CAD. No palpitations. No shortness of breath. GASTROINTESTINAL: Appetite is not that good. No abdominal pain. No nausea or vomiting. No diarrhea or constipation. No hematemesis. No hematochezia. GENITOURINARY: No urgency. No frequency. No dysuria. No hematuria. No obstructive symptoms. No discharge. No pain. No significant abnormal bleeding. MUSCULOSKELETAL: No musculoskeletal pain; no joint swelling. NEUROLOGICAL: Drowsy but seems oriented to person. Unsteady gait. No headache. No neck pain. No syncope. No seizures. No dizziness. PSYCHIATRIC: Not anxious. No depression. No suicidal thoughts. No homicidal thoughts. SKIN: No rash. No lesions. No wounds. ENDOCRINE: No unexplained weight loss. No weight gain. HEMATOLOGIC/LYMPHATIC: No anemia. No purpura. No petechiae. No prolonged or excessive bleeding. No palpable lymph nodes. PHYSICAL EXAMINATION: GENERAL: The patient is awake, alert and oriented, lying in bed in no distress. VITAL SIGNS: Temperature 97.9 F, Pulse 74, Respiratory Rate 20, BP 118/65, Pulse Ox 96% HEENT: Head normocephalic, atraumatic. Eyes: Extraocular muscles are intact. Pupils are equal, round and reactive to light and accommodation. Ears: No lesions. Nose appeared normal. Throat: No exudate or erythema. NECK: Supple. No JVD, no carotid bruit. No lymphadenopathy or thyromegaly. LUNGS: Decreased breath sounds. Clear to auscultation. Percussion note normal. Chest symmetrical. HEART: S1, S2, no S3. No murmurs. No cyanosis or clubbing. No ascites. Pulses: Dorsalis pedis and posterior tibial pulses +1 to +2 both sides. ABDOMEN: Soft. Non-tender. Bowel sounds active. No CVA tenderness. No mass felt. EXTREMITIES: No edema. Full range of motion of all extremities, equal. NEUROLOGIC: No focal deficit. Cranial nerves II through XII are grossly intact. No headache, no double vision or headache. SKIN: Dry. Intact. Turgor-better. LYMPHATIC: No palpable lymph nodes/no lymphedema. MUSCULOSKELETAL: Normal joints with no swelling. Muscle tone is normal. LAB REVIEW: 11/15/16 04:41 11/15/16 04:41 11/15/16 04:41: WBC 11.96 H D, RBC 3.45 L, Hgb 9.6 L, Hct 29.2 L, MCV 84.6, MCH 27.8, MCHC 32.9, RDW Coeff of [place] 13.6, Plt Count 127 L, Immature Gran % (Auto) 1.3, Neut % (Auto) 83.6, Lymph % (Auto) 10.2, [place] % (Auto) 4.8, Eos % (Auto) 0.0, Baso % (Auto) 0.1, Immature Gran # (Auto) 0.2, Neut # 10.0 H, Lymph # 1.2, [place] # 0.6, Eos # 0.0, Baso # 0.0, Sodium 140, Potassium 4.5, Chloride 108 H, Carbon Dioxide 26, Anion Gap 10.5, BUN 19 H, Creatinine 1.09, Estimated GFR ( MDRD) 65.00, BUN/Creatinine Ratio 17.43, Glucose 218 H, Calcium 8.8, Total Bilirubin 0.26, AST 17, ALT 13, Alkaline Phosphatase 66, Total Protein 5.5 L, Albumin 2.4 L, Globulin 3.1, Albumin/Globulin Ratio 0.77 11/14/16 10:00: Total Creatine Kinase 240, CK-MB (CK-2) 0.6, CK-MB (CK-2) % 0.65784, Troponin I 0.0220 ASSESSMENT: 1. Acute bronchitis/pneumonitis. 2. Possible UTI. 3. Dehydration. 4. CA of the lung. 5. Chronic lung disease; on admission respiratory failure with p02 of 50. PLAN: 1. Repeat ABGs on room air 2. Up and about with assistance from nursing 3. Decrease Xanax to 0.5 mg p.o. at h.s. 4. D/C IV fluids as kidney functions are better 5. D/C Flexeril 6. Decrease [place] to 7.5/325 mg t.i.d. p.r.n. Plan and coordination of the patient's care discussed in the presence of Construction Management Assistant and nurse. EDUCATION: The is in the room and case is discussed. CONDITION: Stable SCRIBED BY: RAHUL PALACIOS Component Assembler Supervisor scribed while in presence of service performed by Dr. MILLIE RUSH on 11/15/16 ([id number])
--- NOTE | 2016-11-15 11:01 | HP ---
DATE OF SERVICE: 11/13/16 REASON FOR HOSPITALIZATION: Weakness, Leukocytosis, abnormal blood gasses and fever of 100.5 HISTORY OF PRESENT ILLNESS: The patient is an 81 year old white male hospitalized through the emergency room by Dr. Lowery who called me. The patient's problems and complaints. The patient was brought to the emergency room by the . The patient has weakness , been running fever and chill with poor appetite for past 2-3 days. He has not been able to walk on his own with support and this is kind of unusual. REVIEW OF SYSTEMS: CONSTITUTIONAL: No night sweats. Weakness and fatigue. Fever and chills. HEENT: Eyes: No visual changes. No eye pain. No eye discharge. ENT: No runny nose. No epistaxis. No sinus pain. No sore throat. No odynophagia. No ear pain. No congestion. RESPIRATORY: Mild cough as usual as patient is heavy smoker with chronic lung disease. No congestion. No hemoptysis. CARDIOVASCULAR: No angina symptoms. No CHF symptoms. No atypical chest pain for CAD. No palpitations. Shortness of breath. Pleuritic type of pain. No PND. No Orthopnea. GASTROINTESTINAL: No abdominal pain. No nausea or vomiting. No diarrhea or constipation. No hematemesis. No hematochezia. Poor appetite. GENITOURINARY: No urgency. No frequency. No dysuria. No hematuria. No obstructive symptoms. No discharge. No pain. No significant abnormal bleeding. MUSCULOSKELETAL: No musculoskeletal pain. No joint swelling. No arthritis. Weakness. NEUROLOGICAL: No headache. No neck pain. No syncope. No seizures. No dizziness. PSYCHIATRIC: Not anxious. No depression. No suicidal thoughts. No homicidal thoughts. SKIN: No rash. No lesions. No wounds. ENDOCRINE: No unexplained weight loss. No weight gain. HEMATOLOGIC/LYMPHATIC: No anemia. No purpura. No petechiae. No prolonged or excessive bleeding. No palpable lymph nodes. ALLERGIES: Codeine Penicillin Propoxyphene PERSONAL/FAMILY/SOCIAL HISTORY: The patient is and lives with his . Does all activity of daily living. Smokes more than a pack a day. No alcohol abuse. The patient is retired. MEDICAL/SURGICAL PROBLEMS: History of C of the Lung resected Atrial Flutter/Fibrillation, pacemaker placement Dyslipidemia Hypertension Severe chronic lung disease Smoking Prostatic hypertrophy MEDICATIONS: Xanax 1mg PO at bedtime Lipitor 20mg PO daily Dexilant 60mg PO daily Flexeril 10mg PO at HS Hydrocodone-Acetaminophen 10-325 PO three times a day Cardizem 60mg PO twice Miralax 17 gram at bedtime Brovana 1 vial daily Aspirin one a day Sotalol 40mg twice a day Flomax 0.4mg PO at bedtime PHYSICAL EXAMINATION: GENERAL: The patient is oriented to time, place and person and weak. VITAL SIGNS: HEENT: Head normocephalic, atraumatic. Eyes: Extraocular muscles are intact. Pupils are equal, round and reactive to light and accommodation. Ears: No lesions. Nose appeared normal. Throat: No exudate or erythema. Mucosa membrane dry. NECK: Supple. No JVD, no carotid bruit. No lymphadenopathy or thyromegaly. LUNGS: Decreased breath sounds with mild wheeze bilaterally. Percussion note normal. Chest symmetrical. HEART: S1, S2, no S3. No murmurs. No cyanosis or clubbing. No ascites. Pulses: Dorsalis pedis and posterior tibial pulses +1. ABDOMEN: Soft. Nontender. Bowel sounds active. No CVA tenderness. No mass felt. EXTREMITIES: No edema. Full range of motion of all extremities, equal. NEUROLOGIC: No focal deficit. Cranial nerves II through XII are grossly intact. No headache, no double vision or headache. SKIN: Dry. Intact. Turgor - normal. LYMPHATIC: No palpable lymph nodes/no lymphedema. MUSCULOSKELETAL: Normal joints with no swelling. Muscle tone is normal. LABS: ABG pO2 50, PCO2 42, pH 7.39 with 85% saturation on room air. Lactic acid 16.8, D-dimer 1945 elevated, hgb 12, hct 37, WBC 24,000 normal differential, procalcitonin level normal. Chest x-ray stable, EKG pacemaker working and sensing and working well, atrial flutter noted. Rapid Flu A and B negative. Creatinine 1.5, BUN 22, BNP 722. U/A +2 protein and Urine bacteria 1+. ASSESSMENT: 1. Flu type of symptoms with fever, weakness and poor appetite. 2. Chronic bronchitis 3. Sever chronic lung disease 4. C of the lung, resection 5. Continued smoking 6. Hyperglycemia versus diabetes 7. Dehydration 8. Pacemaker 9. History of hypertension PLAN: 1. Levaquin 500mg Q daily 2. IV fluids 75cc D5 1/2 normal saline 3. Steroids 4. NEBS treatment 5. Continue the rest of the home medications as before 6. Counseling for smoking done 7. Telemetry 8. EKG 9. Routine labs with ABGS all done, reviewed CONDITION: Stable TIME SPENT: More than 70 minutes. MTDD
[2016-11-15] MEDS: LEVAQUIN 250 MG in PREMIX 50 ML D5W 1 BAG IV SCH (20:47)
[2016-11-15] MEDS: MIRALAX PO SCH (20:48)
[2016-11-15] MEDS: FLOMAX PO SCH (20:50)
[2016-11-15] MEDS: LIPITOR PO SCH (20:51)
[2016-11-15] MEDS: XANAX PO SCH (20:55)
[2016-11-16 04:50] LABS: BASOPHILS % (AUTO) 0.1 % (0.0-3.0); HEMATOCRIT 31.4 % (42.0-52.0); HEMOGLOBIN 10.4 g/dl (14.0-18.0); IMMATURE GRANULOCYTE % (AUTO) 0.9 % (0.0-5.0); LYMPHOCYTES # (AUTO) 1.4 K/uL (0.60-3.4); LYMPHOCYTES % (AUTO) 8.7 (10.0-50.0); MEAN CORPUSCULAR HEMOGLOBIN 28.3 pg (27.0-31.0); MEAN CORPUSCULAR HGB CONC 33.1 (31.8-35.4); MEAN CORPUSCULAR VOLUME 85.3 fl (80.0-94.0); MONOCYTES # (AUTO) 0.5 K/uL (0.4-2.0); MONOCYTES % (AUTO) 2.9 (0-10); NEUTROPHILS # (AUTO) 14.3 K/ul (2.0-6.9); NEUTROPHILS % (AUTO) 87.4; PLATELET COUNT 176 10^3/uL (140-440); RED BLOOD COUNT 3.68 10^6/ul (4.70-6.10)
[2016-11-16] MEDS: SOLU-CORTEF 100 MG IVP SCH ×3 (04:56→20:36)
[2016-11-16 05:12] LABS: ALBUMIN 2.5 g/dL (3.4-5.0); ALBUMIN/GLOBULIN RATIO 0.83; ANION GAP 10.9; BILIRUBIN,TOTAL 0.23 mg/dL (0.00-1.20); BUN/CREATININE RATIO 21.15; CALCIUM 9.2 mg/dL (8.2-10.2); CREATININE 1.04 mg/dL (0.60-1.10); POTASSIUM 4.9 mmol/L (3.5-5.1); TOTAL PROTEIN 5.5 g/dL (5.8-8.1)
[2016-11-16] MEDS: PERFOROMIST NEB SCH (05:16)
[2016-11-16] MEDS: HUMULIN R SUBCUT PRN ×4 (05:37→20:39)
[2016-11-16] MEDS: PROTONIX PO SCH (05:37)
[2016-11-16] MEDS: CARDIZEM PO SCH ×2 (08:24→20:40)
[2016-11-16] MEDS: MULTIVITAMIN PO SCH (08:24)
[2016-11-16] MEDS: ASPIRIN EC PO SCH (08:24)
[2016-11-16] MEDS: VITAMIN D PO SCH (08:24)
[2016-11-16] MEDS: BETAPACE PO SCH ×2 (08:24→20:39)
--- NOTE | 2016-11-16 10:05 | PCM.PROG ---
Attending Provider: ATTENDING PROVIDER: Dr. MILLIE RUSH DATE OF SERVICE: 11/16/16 SUBJECTIVE: This 81 year old WHITE/ M was hospitalized 11/13/16. The patient is admitted with flu type of symptoms, fever and UTI. The patient's condition has improved and he has been walking in the hallway. Oxygen saturation is 95% with 2L of oxygen. Appetite is improved. He is still weak this morning and is sleepy. The is present. REVIEW OF SYSTEMS: CONSTITUTIONAL: Weakness. No night sweats. No fever or chills. HEENT: Eyes: No visual changes. No eye pain. No eye discharge. ENT: No runny nose. No epistaxis. No sinus pain. No odynophagia. No congestion. RESPIRATORY: No cough, no congestion. No hemoptysis. CARDIOVASCULAR: No angina symptoms. No CHF symptoms. No atypical chest pain for CAD. No palpitations. No shortness of breath. No PND, no orthopnea. GASTROINTESTINAL: No abdominal pain. No nausea or vomiting. No diarrhea or constipation. No hematemesis. No hematochezia. GENITOURINARY: No urgency. No frequency. No dysuria. No hematuria. No obstructive symptoms. No discharge. No pain. No significant abnormal bleeding. MUSCULOSKELETAL: No musculoskeletal pain; no joint swelling. NEUROLOGICAL: Awake, alert, oriented to time, place and person. No headache. No neck pain. No syncope. No seizures. No dizziness. PSYCHIATRIC: Not anxious. No depression. No suicidal thoughts. No homicidal thoughts. SKIN: No rash. No lesions. No wounds. ENDOCRINE: No unexplained weight loss. No weight gain. HEMATOLOGIC/LYMPHATIC: No anemia. No purpura. No petechiae. No prolonged or excessive bleeding. No palpable lymph nodes. PHYSICAL EXAMINATION: GENERAL: The patient is awake, alert and oriented, lying/sitting in bed in no distress. VITAL SIGNS: Temperature 96.8 F, Pulse 80, Respiratory Rate 20, BP 116/63, Pulse Ox 95% HEENT: Head normocephalic, atraumatic. Eyes: Extraocular muscles are intact. Pupils are equal, round and reactive to light and accommodation. Ears: No lesions. Nose appeared normal. Throat: No exudate or erythema. NECK: Supple. No JVD, no carotid bruit. No lymphadenopathy or thyromegaly. LUNGS: Decreased breath sounds. Clear to auscultation. Percussion note normal. Chest symmetrical. HEART: S1, S2, no S3. No murmurs. No cyanosis or clubbing. No ascites. Pulses: Dorsalis pedis and posterior tibial pulses +1 to +2 both sides. ABDOMEN: Soft. Non-tender. Bowel sounds active. No CVA tenderness. No mass felt. EXTREMITIES: No edema. Full range of motion of all extremities, equal. NEUROLOGIC: No focal deficit. Cranial nerves II through XII are grossly intact. No headache, no double vision or headache. SKIN: Not dry. Intact. Turgor-normal. LYMPHATIC: No palpable lymph nodes/no lymphedema. MUSCULOSKELETAL: Normal joints with no swelling. Muscle tone is normal. LAB REVIEW: 11/16/16 04:40 11/16/16 04:40 11/16/16 04:40: WBC 16.30 H, RBC 3.68 L, Hgb 10.4 L, Hct 31.4 L, MCV 85.3, MCH 28.3, MCHC 33.1, RDW Coeff of [place] 13.6, Plt Count 176 D, Immature Gran % (Auto ) 0.9, Neut % (Auto) 87.4, Lymph % (Auto) 8.7 L, [place] % (Auto) 2.9, Eos % (Auto ) 0.0, Baso % (Auto) 0.1, Immature Gran # (Auto) 0.2, Neut # 14.3 H, Lymph # 1.4 , [place] # 0.5, Eos # 0.0, Baso # 0.0, Sodium 142, Potassium 4.9, Chloride 108 H, Carbon Dioxide 28, Anion Gap 10.9, BUN 22 H, Creatinine 1.04, Estimated GFR ( MDRD) 69.00, BUN/Creatinine Ratio 21.15, Glucose 202 H, Calcium 9.2, Total Bilirubin 0.23, AST 22, ALT 21, Alkaline Phosphatase 68, Total Protein 5.5 L, Albumin 2.5 L, Globulin 3.0, Albumin/Globulin Ratio 0.83 11/15/16 07:58: Puncture Site Rr, O2 Saturation 87.0 L, ABG pH 7.350, ABG pCO2 47.4 H, ABG pO2 57.0 L*, ABG HCO3 26.2 H, ABG Total CO2 28, ABG Base Excess 1, Nima Test +, FiO2 % 21.0 ASSESSMENT: 1. Bronchitis/flu symptoms 2. CA of the lung 3. Chronic lung disease PLAN: 1. Continue IV antibiotics and steroids 2. Encourage the patient to eat and drink fluids 3. Counseling for smoking done 4. PFT 5. Encourage the patient to be up and about Plan and coordination of the patient's care discussed in the presence of Spare Hand Carding and nurse. EDUCATION: Counseling for smoking done. Discussed the importance of good nutrition and hydration. Encouraged the patient to walk. CONDITION: Stable SCRIBED BY: RAHUL PALACIOS Nursing Faculty scribed while in presence of service performed by Dr. MILLIE RUSH on 11/16/16 ([id number])
[2016-11-16] MEDS: MIRALAX PO SCH (20:38)
[2016-11-16] MEDS: XANAX PO SCH (20:40)
[2016-11-16] MEDS: FLOMAX PO SCH (20:40)
[2016-11-16] MEDS: LIPITOR PO SCH (20:41)
[2016-11-16] MEDS ORDERED: LEVAQUIN 500 MG in PREMIX 100 ML D5W 1 BAG IV SCH (21:00)
[2016-11-17] MEDS: SOLU-CORTEF 100 MG IVP SCH (05:15)
[2016-11-17 05:32] VITALS: BP 110/64; TEMP 97.2
[2016-11-17] MEDS: PROTONIX PO SCH (05:33)
[2016-11-17 05:46] LABS: BASOPHILS % (AUTO) 0.1 % (0.0-3.0); HEMATOCRIT 32.5 % (42.0-52.0); HEMOGLOBIN 10.6 g/dl (14.0-18.0); IMMATURE GRANULOCYTE % (AUTO) 1.5 % (0.0-5.0); LYMPHOCYTES # (AUTO) 1.4 K/uL (0.60-3.4); LYMPHOCYTES % (AUTO) 10.2 (10.0-50.0); MEAN CORPUSCULAR HEMOGLOBIN 27.6 pg (27.0-31.0); MEAN CORPUSCULAR HGB CONC 32.6 (31.8-35.4); MEAN CORPUSCULAR VOLUME 84.6 fl (80.0-94.0); MONOCYTES # (AUTO) 0.5 K/uL (0.4-2.0); MONOCYTES % (AUTO) 3.4 (0-10); NEUTROPHILS % (AUTO) 84.8; PLATELET COUNT 189 10^3/uL (140-440); RED BLOOD COUNT 3.84 10^6/ul (4.70-6.10)
[2016-11-17] MEDS ORDERED: PERFOROMIST NEB SCH (06:00)
[2016-11-17 06:06] LABS: ALBUMIN 2.5 g/dL (3.4-5.0); ALBUMIN/GLOBULIN RATIO 0.89; ANION GAP 13.4; BILIRUBIN,TOTAL 0.26 mg/dL (0.00-1.20); POTASSIUM 4.4 mmol/L (3.5-5.1); TOTAL PROTEIN 5.3 g/dL (5.8-8.1)
[2016-11-17] MEDS: HUMULIN R SUBCUT PRN (06:15)
[2016-11-17] MEDS: ASPIRIN EC PO SCH (08:24)
[2016-11-17] MEDS: BETAPACE PO SCH (08:24)
[2016-11-17] MEDS: MULTIVITAMIN PO SCH (08:24)
[2016-11-17] MEDS: VITAMIN D PO SCH (08:24)
[2016-11-17] MEDS: CARDIZEM PO SCH (08:25)
--- NOTE | 2016-11-17 08:26 | CM.DICTOOL ---
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,RUL) BILATERAL CATARACT EXTRACTION PACEMAKER LAST VITALS Temp Pulse Resp BP Pulse Ox 97.2 F L 62 20 110/64 96 11/17/16 05:31 11/17/16 05:31 11/17/16 05:31 11/17/16 05:31 11/17/16 05:31 ACTIVE HOME MEDICATIONS Acetaminophen/Hydrocodone Bitart ([place] 7.5-325) 1 tab PO Q8HR PRN PRN Reason: Analgesia Alprazolam (Xanax) 1 mg PO BEDTIME [facility] Last Admin: 11/16/16 20:40 Dose: 0.5 mg Arformoterol Tartrate (Brovana) 1 vial NEB DAILY Aspirin (Aspirin Ec) 81 mg PO DAILYWM [facility] Last Admin: 11/16/16 08:24 Dose: 81 mg Atorvastatin Calcium (Lipitor) 20 mg PO BEDTIME [facility] Last Admin: 11/16/16 20:41 Dose: 20 mg Cholecalciferol (Vitamin D) 1,000 unit PO DAILY [facility] Last Admin: 11/16/16 08:24 Dose: 1,000 unit Diltiazem HCl (Cardizem) 60 mg PO BID [facility] Last Admin: 11/16/16 20:40 Dose: 60 mg Multivitamins (Multivitamin) 1 cap PO DAILY [facility] Last Admin: 11/16/16 08:24 Dose: 1 cap Dexlansoprazole (Dexilant) 60 mg PO DAILY Polyethylene Glycol (Miralax) 17 gm PO BEDTIME [facility] Last Admin: 11/16/16 20:38 Dose: 17 gm Sotalol HCl (Betapace) 40 mg PO BID [facility] Last Admin: 11/16/16 20:39 Dose: 40 mg Tamsulosin HCl (Flomax) 0.4 mg PO BEDTIME [facility] Last Admin: 11/16/16 20:40 Dose: 0.4 mg ALLERGIES codeine [Codeine] Adverse Reaction (Verified 11/13/16 17:38) Penicillins Adverse Reaction (Verified 11/13/16 17:38) propoxyphene HCl [From Darvon] Adverse Reaction (Verified 11/13/16 17:38) NEW PRESCRIPTIONS: PREDNISONE 10 MG, TAKE ONE TABLET BY MOUTH X 5 (FIVE) DAYS. TAKE THIS MEDICATION WITH FOOD LEVAQUIN 250 MG, TAKE ONE TABLET BY MOUTH DAILY FOR 5 (FIVE) DAYS SMOKING: THE PATIENT AND HIS SPOUSE HAVE RECEIVED TEACHING REGARDING BOTH THE BENEFITS OF COMPLETE TOBACCO USE CESSATION AND THE RISKS OF CONTINUED USE. HE HAS NOT VERBALIZED A PLAN OR HIS INTENTION TO STOP SMOKING DISEASE SPECIFIC EDUCATION: BRONCHITIS HOME MEDICATIONS NEW PRESCRIPTIONS FOLLOW UP BLOOD SUGAR MONITORING LAB REVIEW: 11/17/16 05:20 11/17/16 05:20 11/17/16 05:20: WBC 14.10 H, RBC 3.84 L, Hgb 10.6 L, Hct 32.5 L, MCV 84.6, MCH 27.6, MCHC 32.6, RDW Coeff of [place] 13.6, Plt Count 189, Immature Gran % (Auto) 1.5, Neut % (Auto) 84.8, Lymph % (Auto) 10.2, [place] % (Auto) 3.4, Eos % (Auto) 0.0, Baso % (Auto) 0.1, Immature Gran # (Auto) 0.2, Neut # 12.0 H, Lymph # 1.4, [place] # 0.5, Eos # 0.0, Baso # 0.0, Sodium 142, Potassium 4.4, Chloride 106, Carbon Dioxide 27, Anion Gap 13.4, BUN 23 H, Creatinine 1.00, Estimated GFR ( MDRD) 72.00, BUN/Creatinine Ratio 23.00, Glucose 218 H, Calcium 9.0, Total Bilirubin 0.26, AST 15, ALT 20, Alkaline Phosphatase 55 L, Total Protein 5.3 L, Albumin 2.5 L, Globulin 2.8, Albumin/Globulin Ratio 0.89 PLAN: DISCHARGE HOME TODAY RETURN TO SEE DR. RUSH IN 5-7 DAYS. PLEASE PHONE THE OFFICE TO SCHEDULE YOUR APPOINTMENT [phone] RESUME YOUR HOME MEDICATIONS PER LIST PROVIDED BY THE NURSING STAFF DO NOT TAKE YOUR FLEXERIL NEW PRESCRIPTIONS PREDNISONE 10 MG, TAKE ONE TABLET BY MOUTH X 5 (FIVE) DAYS. TAKE THIS MEDICATION WITH FOOD LEVAQUIN 250 MG, TAKE ONE TABLET BY MOUTH DAILY FOR 5 (FIVE) DAYS ACTIVITY: GET PLENTY OF REST AT HOME. GRADUALLY INCREASE YOUR ACTIVITY LEVEL ACCORDING TO YOUR TOLERATION MEASURE YOUR BLOOD SUGARS FASTING EVERY MORNING 2 HOURS AFTER LUNCH AND AT BEDTIME. KEEP A LOG OF THE READINGS AND BRING THIS TO YOUR NEXT APPOINTMENT WITH DR. RUSH DIET: CONSISTENT CARBS HEALTHY HEART SUMMARY: THE PATIENT IS ALERT AND ORIENTED X3. HE CURRENTLY RESIDES AT HOME WITH HIS SPOUSE. HE IS INDEPENDENT WITH ADL'S. HE DESIRES TO RETURN HOME AT DISCHARGE. DURABLE MEDICAL EQUIPMENT AVAILABLE AT HOME: OXYGEN NEBULIZER GLUCOMETER AND TESTING SUPPLIES THE PATIENT CURRENTLY HAS NO HOME HEALTH OR HOMEMAKING SERVICES. HE WILL NOT REQUIRE THESE SERVICES AT DISCHARGE. HE IS ABLE TO AMBULATE WITH STAND-BY ASSISTANCE OF HIS SPOUSE FOR GREATER THAN HOUSEHOLD DISTANCES. HE IS INDEPENDENT WITH ADL'S. HIS SKIN TURGOR IS INTACT AND WITHOUT DECUBITUS ULCERS. HYDRATION STATUS IS VERY MUCH IMPROVED FROM ADMISSION. HE AND HIS SPOUSE ARE AWARE AND AGREEABLE FOR TODAY'S DISCHARGE. MILLIE RUSH M.D.
--- NOTE | 2016-11-17 11:49 | PCM.PROG ---
Attending Provider: ATTENDING PROVIDER: Dr. MILLIE RUSH DATE OF SERVICE: 11/17/16 SUBJECTIVE: This 81 year old WHITE/ M was hospitalized 11/13/16. The patient is hospitalized with fever and flu type of symptoms. The patient is a lot better , up and about going out to smoke 4 to 5 times a day. He walks by himself. His appetite has improved. The is in the room. REVIEW OF SYSTEMS: CONSTITUTIONAL: No night sweats. No fatigue, malaise, lethargy. No fever or chills. HEENT: Eyes: No visual changes. No eye pain. No eye discharge. ENT: No runny nose. No epistaxis. No sinus pain. No odynophagia. No congestion. RESPIRATORY: No cough, no congestion. No hemoptysis. CARDIOVASCULAR: No angina symptoms. No CHF symptoms. No pleuritic type of chest pain; no atypical chest pain for CAD. No palpitations. No shortness of breath. No PND, no orthopnea. GASTROINTESTINAL: No abdominal pain. No nausea or vomiting. No diarrhea or constipation. No hematemesis. No hematochezia. GENITOURINARY: No urgency. No frequency. No dysuria. No hematuria. No obstructive symptoms. No discharge. No pain. No significant abnormal bleeding. MUSCULOSKELETAL: No musculoskeletal pain; no joint swelling. NEUROLOGICAL: Sleepy this a.m but is oriented to time, place and person. No headache. No neck pain. No syncope. No seizures. No dizziness. PSYCHIATRIC: Not anxious. No depression. No suicidal thoughts. No homicidal thoughts. SKIN: No rash. No lesions. No wounds. ENDOCRINE: No unexplained weight loss. No weight gain. HEMATOLOGIC/LYMPHATIC: No anemia. No purpura. No petechiae. No prolonged or excessive bleeding. No palpable lymph nodes. PHYSICAL EXAMINATION: GENERAL: The patient is awake, alert and oriented, lying in bed in no distress. VITAL SIGNS: Temperature 97.2 F, Pulse 62, Respiratory Rate 20, BP 110/64, Pulse Ox 96% HEENT: Head normocephalic, atraumatic. Eyes: Extraocular muscles are intact. Pupils are equal, round and reactive to light and accommodation. Ears: No lesions. Nose appeared normal. Throat: No exudate or erythema. NECK: Supple. No JVD, no carotid bruit. No lymphadenopathy or thyromegaly. LUNGS: Decreased breath sounds. Clear to auscultation. Percussion note normal. Chest symmetrical. HEART: S1, S2, no S3. No murmurs. No cyanosis or clubbing. No ascites. Pulses: Dorsalis pedis and posterior tibial pulses +1 to +2 both sides. ABDOMEN: Soft. Non-tender. Bowel sounds active. No CVA tenderness. No mass felt. EXTREMITIES: No edema. Full range of motion of all extremities, equal. NEUROLOGIC: No focal deficit. Cranial nerves II through XII are grossly intact. No headache, no double vision or headache. SKIN: Not dry. Intact. Turgor-normal. LYMPHATIC: No palpable lymph nodes/no lymphedema. MUSCULOSKELETAL: Normal joints with no swelling. Muscle tone is normal. LAB REVIEW: 11/17/16 05:20 11/17/16 05:20 11/17/16 05:20: WBC 14.10 H, RBC 3.84 L, Hgb 10.6 L, Hct 32.5 L, MCV 84.6, MCH 27.6, MCHC 32.6, RDW Coeff of [place] 13.6, Plt Count 189, Immature Gran % (Auto) 1.5, Neut % (Auto) 84.8, Lymph % (Auto) 10.2, [place] % (Auto) 3.4, Eos % (Auto) 0.0, Baso % (Auto) 0.1, Immature Gran # (Auto) 0.2, Neut # 12.0 H, Lymph # 1.4, [place] # 0.5, Eos # 0.0, Baso # 0.0, Sodium 142, Potassium 4.4, Chloride 106, Carbon Dioxide 27, Anion Gap 13.4, BUN 23 H, Creatinine 1.00, Estimated GFR ( MDRD) 72.00, BUN/Creatinine Ratio 23.00, Glucose 218 H, Calcium 9.0, Total Bilirubin 0.26, AST 15, ALT 20, Alkaline Phosphatase 55 L, Total Protein 5.3 L, Albumin 2.5 L, Globulin 2.8, Albumin/Globulin Ratio 0.89 ASSESSMENT: 1. Flu type of symptoms resolved 2. Bronchitis under control 3. Chronic lung disease 4. Pacemaker 5. Hyperglycemia versus diabetes. It is noted with steroids that the sugars go out of control but A1C is always acceptable. 6. Medical conditions are controlled PLAN: 1. Discharge home. 2. The is to monitor the blood sugar at home. 3. Levaquin 250 mg one p.o. daily for five days 4. D/C Flexeril 5. Prednisone 10 mg p.o. b.i.d. for five days Plan and coordination of the patient's care discussed in the presence of Casino Enforcement Agent and nurse. EDUCATION: Education carried out about steroids and their side effects to include avascular necrosis, elevated blood sugars, et cetera. The stated she will monitor the blood sugars at home. They are in agreement with the plan. CONDITION: Stable SCRIBED BY: RAHUL PALACIOS, Claims Collector scribed while in presence of service performed by Dr. MILLIE RUSH on 11/17/16 (0012)
--- NOTE | 2016-11-20 15:25 | DS ---
DATE OF SERVICE: 11/17/16 FINAL DIAGNOSIS: 1. Acute bronchitis/pneumonitis 2. Flu Syndrome 3. Acute respiratory failure (pO2 on admission 50) improved 4. UTi 5. Leukocytosis 6. Dehydration 7. Hyperglycemia vs diabetes 8. Hypertension 9. CPD 10.Atrial fibrillation 11.Coronary artery disease 12.Dyslipidemia 13.BPH 14.Cancer of the lungs 15.Status post right lobectomy (RML, RUL) 16.Bilateral cataract extraction 17.Pacemaker LAST VITALS: Temperature 97.2, pulse 62, respiratory rate 20, blood pressure 110/64 and pulse ox 96%. DISCHARGE INSTRUCTIONS: Discharge the patient home today. Resume home medication as per list provided by the nursing staff. No not take Flexeril. MEDICATIONS AT DISCHARGE: [place] 7.5-325mg one tablet PO Q 8 hours PRN Xanax 1mg PO bedtime Brovana 1 vial NEB daily Aspirin 81mg PO daily Lipitor 20mg PO bedtime Vitamin D 1,000 unit PO daily Cardizem 60mg PO twice a day Multivitamin 1 capsule PO daily Dexilant 60mg Po daily Miralax 17gram Po bedtime Betapace 40mg PO twice a day Flomax 0.4mg PO bedtime ALLERGIES: Codeine Penicillins Propoxyphene NEW PRESCRIPTIONS: Prednisone 10mg take one tablet by mouth x five days, take this medication with food Levaquin 250mg take one tablet by mouth daily for five days. DIET INSTRUCTIONS: Consistent Carbs Healthy heart. ACTIVITY: Get plenty of rest at home. Gradually increase activity level according to toleration. Measure blood sugars fasting every morning 2 hour after lung and at bedtime. Keep a log of the readings and bring this to next appointment with Dr. Mcdonald. SMOKING: The patient and his spouse have received teaching regarding both the benefits of complete tobacco use cessation and the risks of continued use. He has not verbalized a plan or his intention to stop smoking. DISEASE SPECIFIC EDUCATION: Bronchitis Home medications New prescriptions Followup Blood sugar monitoring HOSPITAL COURSE: The patient is an 81 year old white male who is a heavy smoker with history of pneumonectomy and lung cancer was hospitalized with fever, mild bronchitis type of symptoms and symptoms consistent with fly syndrome. The patient was treated in the hospital with Levaquin and steroids. The patient's condition improved. He felt a lot better, his wheezing was much less and his appetite improved tremendously. The patient was up and about, in fact he started smoking as usual going 4-5 times out in the smoking shack. The patient has been counseled for smoking, he said that he would never give up smoking. The patient's cardiovascular status was stable and respiratory status improved. Prognosis is poor. The patient was discharged on Levaquin and Steroid therapy. Side effect of steroids including avascular necrosis of the femur discussed. Condition at the time of discharge is stable, prognosis is poor. TIME SPENT: More than 60 minutes. CHRISTIAND
--- NOTE | 2016-11-20 15:26 | PN ---
10/1716: Level 5 11/14/16: Intermediate 11/15/16: Intermediate 11/16/16: Intermediate 11/17/16: D as in discharge MTDD
== END 2016-11-17 08:57 | disposition home or self-care (01) | DRG 202 ==
LOC: ED 17:29 → MEDSURG B 19:31
PROVIDERS: ADMIT Internal Medicine; ATTEND Internal Medicine
DX: J20.9 Acute bronchitis, unspecified (principal); J96.01 Acute respiratory failure with hypoxia; J44.0 Chronic obstructive pulmonary disease with (acute) lower respiratory infection; J11.1 Influenza due to unidentified influenza virus with other respiratory manifestations; E86.0 Dehydration; R73.9 Hyperglycemia, unspecified; E11.9 Type 2 diabetes mellitus without complications; I10 Essential (primary) hypertension; I48.91 Unspecified atrial fibrillation; I25.10 Atherosclerotic heart disease of native coronary artery without angina pectoris; E78.5 Hyperlipidemia, unspecified; N40.0 Benign prostatic hyperplasia without lower urinary tract symptoms; R50.9 Fever, unspecified; R53.1 Weakness; R05 Cough; R06.02 Shortness of breath; M25.511 Pain in right shoulder; W19.XXXA Unspecified fall, initial encounter; F17.200 Nicotine dependence, unspecified, uncomplicated; Z90.2 Acquired absence of lung [part of]; Z95.0 Presence of cardiac pacemaker; Z79.899 Other long term (current) drug therapy
CPT/HCPCS: 36415; 80053; 81001; 82550; 82553; 82803; 82962; 83605; 83880; 84145; 84484; 85025; 85379; 87040; 87086; 87651; 87804; 87880; 93005; 93010; 94640; 96360; 99284

== ENCOUNTER 2017-01-05 12:42 | Outpatient (CLI) | payer OTHER ==
[2013-01-07 12:39] VITALS: TEMP 96.7
== END 2017-01-05 12:43 | disposition home or self-care (01) ==
LOC: CAR 12:42
PROVIDERS: ATTEND Internal Medicine
DX: J44.9 Chronic obstructive pulmonary disease, unspecified (principal); C34.90 Malignant neoplasm of unspecified part of unspecified bronchus or lung; F17.210 Nicotine dependence, cigarettes, uncomplicated
CPT/HCPCS: 94761

== ENCOUNTER 2017-04-20 17:15 | Inpatient (IN) ==
[2017-04-20] MEDS ORDERED: SOLU-MEDROL 125 MG IVP STA ×2 (17:31→18:29)
[2017-04-20] MEDS ORDERED: DUONEB NEB STA (17:31)
[2017-04-20 17:40] LABS: ABG PCO2 61.6 mmHg (35-45); ABG PH 7.356 (7.35-7.45)
[2017-04-20 17:41] LABS: ABG BASE EXCESS 9 (-2.0-2.0); ABG HCO3 34.5 (22.0-26.0); ABG TCO2 36 (22.0-28.0)
[2017-04-20 17:49] LABS: BASOPHILS % (AUTO) 0.1 % (0.0-3.0); HEMATOCRIT 42.5 % (42.0-52.0); HEMOGLOBIN 13.8 g/dl (14.0-18.0); IMMATURE GRANULOCYTE % (AUTO) 1.2 % (0.0-5.0); LYMPHOCYTES # (AUTO) 2.3 K/uL (0.60-3.4); LYMPHOCYTES % (AUTO) 8.2 (10.0-50.0); MEAN CORPUSCULAR HEMOGLOBIN 27.5 pg (27.0-31.0); MEAN CORPUSCULAR HGB CONC 32.5 (31.8-35.4); MEAN CORPUSCULAR VOLUME 84.8 fl (80.0-94.0); MONOCYTES # (AUTO) 2.3 K/uL (0.4-2.0); MONOCYTES % (AUTO) 8.4 (0-10); NEUTROPHILS # (AUTO) 22.4 K/ul (2.0-6.9); NEUTROPHILS % (AUTO) 82.1; PLATELET COUNT 215 10^3/uL (140-440); RED BLOOD COUNT 5.01 10^6/ul (4.70-6.10); WHITE BLOOD COUNT 27.35 K/ul (4.2-10.2)
[2017-04-20 18:12] LABS: ALANINE AMINOTRANSFERASE 18 U/L (12-78); ALBUMIN 3.3 g/dL (3.4-5.0); ALKALINE PHOSPHATASE 79 U/L (56-119); ANION GAP 18.8; ASPARTATE AMINO TRANSFERASE 19 U/L (15-37); BILIRUBIN,TOTAL 0.42 mg/dL (0.00-1.20); BLOOD UREA NITROGEN 26 mg/dL (7-18); CARBON DIOXIDE 27 mmol/L (23-31); CHLORIDE 97 mmol/L (98-107); CREATINE KINASE 20 U/L; GLUCOSE 313 mg/dL (82-115); POTASSIUM 4.8 mmol/L (3.5-5.1); SODIUM 138 mmol/L (136-145); TOTAL PROTEIN 7.4 g/dL (5.8-8.1)
[2017-04-20] MEDS ORDERED: ROCEPHIN 1 GM in SODIUM CHLORIDE 50 ML IV STA ×2 (18:34→18:35)
[2017-04-20] MEDS ORDERED: AZACTAM 1 GM in SODIUM CHLORIDE 50 ML IV STA (18:37)
--- NOTE | 2017-04-20 18:40 | ED.PDOC ---
General ED Provider: Dr. CAROLINA OLIVEIRA Chief Complaint: Shortness of Air Stated Complaint: shortness of breath Time Seen by Physician: 17:15 Mode of Arrival: Wheelchair Information Source: Patient Exam Limitations: No limitations Primary Care Provider: MILLIE RUSH Nursing and Triage Documentation Reviewed and Agree: Yes Respiratory Complaint Exam - Shortness of Air Complaint/Exam Symptoms Are: Still present Timing: Constant Initial Severity: Moderate Character: Reports: Dyspnea at rest, Dyspnea on exertion, Orthopnea Aggravating: Reports: None Alleviating: Reports: Bronchodilators, Upright position, Spontaneous resolution Associated Signs and Symptoms: Reports: Cough, Wheezing, Nasal congestion. Denies: Chest pain with cough, Chest pain, Fever, Chills, Diaphoresis, Dizziness , Calf pain, Calf swelling, Edema, Rapid breathing, Labored breathing, Decreased intake History of Healthcare-Acquired Pneumonia: No Pulmonary Embolism Risk Factors: Reports: Bedrest Cardiac Risk Factors: Reports: Elevated lipids, Hypertension Tuberculosis Risk Factors: Reports: None Home Oxygen Use: No Recent Stress Test: No Recent Echo/LV Function: No Respiratory Distress: None Stridor Present: No Tracheal Deviation: No Accessory Muscle Use: No Diminished Breath Sounds: Yes Prolonged Expiratory Phase: No Unable to Speak Full Sentences: No Fatigue: No Leg Swelling: No Gracie's Sign Present: No Grunting Respirations: No Kussmaul Respirations: No Differential Diagnoses: CHF, Pulmonary Edema, Pneumonia, Bronchitis Review of Systems - Review Of Systems Constitutional: Reports: No symptoms Eyes: Reports: No symptoms Ears, Nose, Mouth, Throat: Reports: No symptoms Respiratory: Reports: Cough, Short of air, Wheezing Cardiac: Reports: No symptoms GI: Reports: No symptoms : Reports: No symptoms Musculoskeletal: Reports: No symptoms Skin: Reports: No symptoms Neurological: Reports: No symptoms Endocrine: Reports: No symptoms Hematologic/Lymphatic: Reports: No symptoms All Other Systems: Reviewed and Negative Past Medical History - Past Medical History Previously Healthy: No Endocrine: Reports: DM 2, Dyslipidemia Cardiovascular: Reports: MT, Hypertension, Other (enlarged heart) Respiratory: Reports: COPD, Pneumonia, Other (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) Hematological: Reports: Anemia Gastrointestinal: Reports: None Genitourinary: Reports: None Neuro/Psych: Reports: None Musculoskeletal: Reports: None Cancer: Reports: Lung, Other (bladder tumor) Other Pertinent Past Medical History: 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 - Surgical History General Surgical History: Reports: Appendectomy, Pacemaker, Other (partial pneumonectomy right upper lobe-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) - Family History Family History: Reports: Cancer (sisters brothers mother all with due to brain tumors"mine skipped my head and got my lung") - Social History Smoking Status: Current every day smoker, Heavy tobacco smoker, Vaping Hx Substance Use: No Alcohol Screening: None Physical Exam - Physical Exam Appearance: Ill-appearing Ill-appearing: Moderate Pain Distress: Moderate Eyes: ROBERTO, EOMI, Conjunctiva clear ENT: Ears normal, Nose normal, Oropharynx normal Respiratory: Rhonchi, Wheezes Cardiovascular: RRR, Pulses normal, No rub, No murmur GI/: Soft, Nontender, No masses, Bowel sounds normal, No Organomegaly Musculoskeletal: Normal strength, ROM intact, No edema, No calf tenderness Skin: Warm, Dry, Normal color Neurological: Sensation intact, Motor intact, Reflexes intact, Cranial nerves intact, Alert, Oriented Psychiatric: Affect appropriate, Mood appropriate Interpretation - Radiology Interpretation Radiology Interpretation By: Radiologist Physician Notification - Case Discussed Physician Notified: pmd Time of Notification: 18:42 Admit To: Inpatient Critical Care Note - Critical Care Note Total Time (mins): 0 Course - Course Hematology/Chemistry: 04/20/17 17:40 04/20/17 17:40 Orders, Labs, Meds: Lab Review 04/20/17 04/20/17 04/20/17 17:28 17:40 17:40 WBC 27.35 H RBC 5.01 Hgb 13.8 L Hct 42.5 MCV 84.8 MCH 27.5 MCHC 32.5 RDW Coeff of [place] 14.4 Plt Count 215 Immature Gran % (Auto) 1.2 Neut % (Auto) 82.1 Lymph % (Auto) 8.2 L [place] % (Auto) 8.4 Eos % (Auto) 0.0 Baso % (Auto) 0.1 Immature Gran # (Auto) 0.3 Neut # 22.4 H Lymph # 2.3 [place] # 2.3 H Eos # 0.0 Baso # 0.0 Puncture Site Rr O2 Saturation 80.0 L ABG pH 7.356 ABG pCO2 61.6 H ABG pO2 48.0 L* ABG HCO3 34.5 H ABG Total CO2 36 H ABG Base Excess 9 H Nima Test + FiO2 % 21.0 Sodium 138 Potassium 4.8 Chloride 97 L Carbon Dioxide 27 Anion Gap 18.8 BUN 26 H Creatinine 1.30 H Estimated GFR (MDRD) 53.00 BUN/Creatinine Ratio 20.00 Glucose 313 H Lactic Acid Calcium 10.0 Total Bilirubin 0.42 AST 19 ALT 18 Alkaline Phosphatase 79 Total Creatine Kinase 20 Troponin I < 0.0100 Total Protein 7.4 Albumin 3.3 L Globulin 4.1 Albumin/Globulin Ratio 0.80 04/20/17 17:40 WBC RBC Hgb Hct MCV MCH MCHC RDW Coeff of [place] Plt Count Immature Gran % (Auto) Neut % (Auto) Lymph % (Auto) [place] % (Auto) Eos % (Auto) Baso % (Auto) Immature Gran # (Auto) Neut # Lymph # [place] # Eos # Baso # Puncture Site O2 Saturation ABG pH ABG pCO2 ABG pO2 ABG HCO3 ABG Total CO2 ABG Base Excess Nima Test FiO2 % Sodium Potassium Chloride Carbon Dioxide Anion Gap BUN Creatinine Estimated GFR (MDRD) BUN/Creatinine Ratio Glucose Lactic Acid 18.1 Calcium Total Bilirubin AST ALT Alkaline Phosphatase Total Creatine Kinase Troponin I Total Protein Albumin Globulin Albumin/Globulin Ratio Orders Category Date Time Status ABG DRAW REQUEST Stat CARDIO 04/20/17 17:28 Completed EKG-(ED ONLY) Stat CARDIO 04/20/17 17:28 Completed NEBULIZER TREATMENT Stat CARDIO 04/20/17 17:31 Completed ED IV/MEDIPORT/POWERPORT .ONCE EMERGENCY 04/20/17 17:28 Active ABG Stat LAB 04/20/17 17:28 Completed BLOOD CULTURE Stat LAB 04/20/17 17:40 Received CBC W/ AUTO DIFF Stat LAB 04/20/17 17:40 Completed COMPREHENSIVE METABOLIC PANEL Stat LAB 04/20/17 17:40 Completed CREATINE KINASE Stat LAB 04/20/17 17:40 Completed D-DIMER Stat LAB 04/20/17 17:40 Received LACTIC ACID Stat LAB 04/20/17 17:40 Completed PROCALCITONIN Stat LAB 04/20/17 17:40 Received TROPONIN I Stat LAB 04/20/17 17:40 Completed 0.9 % Sodium Chloride [Saline Flush] MEDS 04/20/17 17:27 Ordered 1 syr IVF PRN PRN Ipratropium/Albuterol Neb [Duoneb] MEDS 04/20/17 17:31 Discontinued 1 vial NEB ONCE STA Methylprednisolone Sod Succ/Pf [Solu-Medrol 125 mg] MEDS 04/20/17 17:31 Discontinued 125 [address] ONCE [address] CT CHEST W/O CONTRAST Stat RADS 04/20/17 18:24 Ordered Medications Generic Name Dose Route Start Last Admin Trade Name Freq PRN Reason Stop Dose Admin Sodium Chloride 1 syr 04/20/17 17:27 Saline Flush IVF PRN PRN To flush IV Discontinued Medications Generic Name Dose Route Start Last Admin Trade Name Freq PRN Reason Stop Dose Admin Albuterol/Ipratropium 1 vial 04/20/17 17:31 04/20/17 17:45 Duoneb NEB 04/20/17 17:32 1 vial ONCE STA Administration Methylprednisolone Sodium Succinate 125 mg 04/20/17 17:31 04/20/17 17:46 Solu-Medrol 125 Mg IVP 04/20/17 17:32 125 mg ONCE STA Administration Vital Signs: Temp Pulse Resp BP Pulse Ox 04/20/17 17:15 98.1 F 97 H 22 154/79 H 82 L Departure - Departure Time of Disposition: 18:41 Disposition: ADMITTED INPATIENT Discharge Problem: Shortness of breath Instructions: Dyspnea (ED) Condition: Good Pt referred to PMD for follow-up: Yes Additional Instructions: Please call your Family Physician as soon as possible to schedule a follow-up appointment. Allergies/Adverse Reactions: Allergies codeine [Codeine] Adverse Reaction (Verified 04/20/17 17:18) Penicillins Adverse Reaction (Verified 04/20/17 17:18) propoxyphene HCl [From Darvon] Adverse Reaction (Verified 04/20/17 17:18) Home Medications: Ambulatory Orders Alprazolam [Xanax] 1 mg PO BEDTIME 01/05/13 Atorvastatin Calcium [Lipitor] 20 mg PO BEDTIME 01/05/13 Dexlansoprazole [Dexilant] 60 mg PO DAILY 01/05/13 Hydrocodone/Acetaminophen [Hydrocodon-Acetaminophn 10-325] 1 each PO TID PRN Diltiazem HCl [Cardizem] 60 mg PO BID 12/04/15 Polyethylene Glycol 3350 [Miralax] 17 gm PO BEDTIME 12/04/15 Arformoterol Tartrate [Brovana] 1 vial NEB DAILY 04/04/16 Aspirin [Ecotrin] 81 mg PO DAILYWM 07/11/16 Sotalol HCl [Betapace] 40 mg PO BID 07/11/16 Tamsulosin HCl [Flomax] 0.4 mg PO BEDTIME 07/11/16 Cholecalciferol (Vitamin D3) [Vitamin D] 1,000 unit PO DAILY 09/12/16 Multivitamin 1 cap PO DAILY 09/12/16 Cyclobenzaprine HCl [Flexeril] 10 mg PO DAILY PRN 04/20/17
[2017-04-20] MEDS ORDERED: ROCEPHIN ONE (18:49)
--- NOTE | 2017-04-20 19:24 | CT ---
EXAM: CT of the chest without contrast. HISTORY: Shortness of breath. PROCEDURE: Contiguous axial CT images of the chest without contrast with coronal and sagittal reform ats. FINDINGS: The heart is within normal limits in size. The thoracic aorta is within normal limits in d iameter. There are atherosclerotic calcifications in the thoracic aorta. There are coronary artery calcifications. There are calcified hilar lymph nodes. There are minimal secretions in the trachea. There are left basilar infiltrates and patchy areas of consolidation. There is a right lobectomy an d stable scarring in the right lung. There is a multi lead pacemaker. There is stable soft tissue density in the right apex. There are degenerative changes in the spine. The adrenal glands and liver are normal in appearance. Impression: Left lower lobe infiltrates and consolidation consistent with pneumonia. Minimal secretions in the trachea. Right lobectomy and stable right lung scarring. Stable soft tissue density in the right apex probably representing scarring. Atherosclerotic vascular disease.
[2017-04-20] MEDS ORDERED: ZITHROMAX PO SCH (20:30)
[2017-04-20] MEDS ORDERED: NON-FORMULARY MEDICATION (Alprazolam [Xanax] 1 MG) PO SCH ×22 (21:00)
[2017-04-20] MEDS ORDERED: CARDIZEM ONE (21:01)
[2017-04-20] MEDS ORDERED: XANAX ONE (21:01)
[2017-04-20] MEDS: LIPITOR PO SCH (21:29)
[2017-04-20] MEDS: FLOMAX PO SCH (21:30)
[2017-04-20] MEDS: BETAPACE PO SCH (21:30)
[2017-04-20] MEDS: CARDIZEM PO SCH (21:34)
[2017-04-20] MEDS: DUONEB NEB SCH (22:50)
[2017-04-20] MEDS ORDERED: DUONEB NEB ONE (22:50)
[2017-04-20] MEDS ORDERED: SOLU-CORTEF 250 MG ONE (22:58)
[2017-04-20 23:01] LABS: ABG PCO2 56.8 mmHg (35-45); ABG PH 7.401 (7.35-7.45)
[2017-04-20 23:02] LABS: ABG BASE EXCESS 10 (-2.0-2.0); ABG HCO3 35.3 (22.0-26.0)
[2017-04-20] MEDS: SOLU-CORTEF 250 MG IVP SCH (23:02)
[2017-04-20 23:03] LABS: ABG TCO2 37 (22.0-28.0)
[2017-04-21 00:36] LABS: BASOPHILS # (AUTO) 0.1 K/uL (0-0.2); BASOPHILS % (AUTO) 0.2 % (0.0-3.0); HEMATOCRIT 42.8 % (42.0-52.0); IMMATURE GRANULOCYTE % (AUTO) 1.6 % (0.0-5.0); LYMPHOCYTES # (AUTO) 1.1 K/uL (0.60-3.4); LYMPHOCYTES % (AUTO) 4.2 (10.0-50.0); MEAN CORPUSCULAR HEMOGLOBIN 27.4 pg (27.0-31.0); MEAN CORPUSCULAR HGB CONC 32.7 (31.8-35.4); MEAN CORPUSCULAR VOLUME 83.8 fl (80.0-94.0); MONOCYTES # (AUTO) 0.4 K/uL (0.4-2.0); MONOCYTES % (AUTO) 1.4 (0-10); NEUTROPHILS # (AUTO) 23.7 K/ul (2.0-6.9); NEUTROPHILS % (AUTO) 92.6; PLATELET COUNT 196 10^3/uL (140-440); RED BLOOD COUNT 5.11 10^6/ul (4.70-6.10); WHITE BLOOD COUNT 25.58 K/ul (4.2-10.2)
[2017-04-21 00:53] LABS: ALBUMIN 3.2 g/dL (3.4-5.0); ALBUMIN/GLOBULIN RATIO 0.8; ANION GAP 16.7; BILIRUBIN,TOTAL 0.48 mg/dL (0.00-1.20); BUN/CREATININE RATIO 17.42; CALCIUM 10.2 mg/dL (8.2-10.2); CREATININE 1.32 mg/dL (0.60-1.10); POTASSIUM 4.7 mmol/L (3.5-5.1); TOTAL PROTEIN 7.2 g/dL (5.8-8.1)
[2017-04-21 01:00] LABS: TROPONIN I 0.036 ng/ml (0.0000-0.4000)
[2017-04-21 01:07] VITALS: BMI 20.9
[2017-04-21] MEDS ORDERED: SOLU-CORTEF 250 MG ONE (02:36)
[2017-04-21] MEDS: DUONEB NEB SCH ×4 (05:24→23:01)
[2017-04-21] MEDS: SOLU-CORTEF 250 MG IVP SCH (05:37)
[2017-04-21] MEDS ORDERED: AZACTAM 1 GM in SODIUM CHLORIDE 50 ML IV SCH (07:00)
[2017-04-21] MEDS ORDERED: ROCEPHIN 1 GM in SODIUM CHLORIDE 50 ML IV SCH (07:00)
[2017-04-21] MEDS: AZACTAM 1 GM in SODIUM CHLORIDE 50 ML IV SCH ×3 (08:35→21:41)
[2017-04-21] MEDS: ASPIRIN EC PO SCH (08:42)
[2017-04-21] MEDS: BETAPACE PO SCH ×2 (08:43→21:42)
[2017-04-21] MEDS: CARDIZEM PO SCH ×2 (08:43→21:41)
[2017-04-21] MEDS ORDERED: NON-FORMULARY MEDICATION (Arformoterol Tartrate [Brovana] 1 VIAL) NEB SCH (09:00)
[2017-04-21 10:52] LABS: TROPONIN I 0.029 ng/ml (0.0000-0.4000)
[2017-04-21 11:14] LABS: ABG PCO2 44.2 mmHg (35-45); ABG PH 7.517 (7.35-7.45)
[2017-04-21 11:15] LABS: ABG BASE EXCESS 13 (-2.0-2.0); ABG HCO3 35.9 (22.0-26.0); ABG TCO2 37 (22.0-28.0)
[2017-04-21] MEDS: SOLU-CORTEF 100 MG IVP SCH ×3 (11:54→23:31)
[2017-04-21] MEDS: NORCO 10-325 PO PRN (13:56)
[2017-04-21 14:14] LABS: BILIRUBIN,URINE Negative (NEGATIVE); KETONES,URINE Negative (NEGATIVE); LEUKOCYTE ESTERASE ,URINE Negative (NEGATIVE); NITRITE,URINE Negative (NEGATIVE); PH,URINE 5.5 (5-9); PROTEIN,URINE 1+ (NEGATIVE); URINE, BLOOD Negative (NEGATIVE)
[2017-04-21 14:15] LABS: ADD URINE MICROSCOPIC YES
[2017-04-21] MEDS: PERFOROMIST NEB SCH (20:30)
[2017-04-21] MEDS ORDERED: XANAX PO SCH (21:00)
[2017-04-21] MEDS: LIPITOR PO SCH (21:41)
[2017-04-21] MEDS: ZITHROMAX PO SCH (21:41)
[2017-04-21] MEDS: FLOMAX PO SCH (21:42)
[2017-04-21] MEDS: ROCEPHIN 1 GM in SODIUM CHLORIDE 50 ML IV SCH (22:28)
[2017-04-22] MEDS: AZACTAM 1 GM in SODIUM CHLORIDE 50 ML IV SCH ×3 (04:09→20:10)
[2017-04-22 04:32] LABS: BASOPHILS # (AUTO) 0.1 K/uL (0-0.2); BASOPHILS % (AUTO) 0.2 % (0.0-3.0); HEMATOCRIT 39.9 % (42.0-52.0); HEMOGLOBIN 13.3 g/dl (14.0-18.0); IMMATURE GRANULOCYTE % (AUTO) 1.1 % (0.0-5.0); LYMPHOCYTES # (AUTO) 1.4 K/uL (0.60-3.4); LYMPHOCYTES % (AUTO) 5.9 (10.0-50.0); MEAN CORPUSCULAR HGB CONC 33.3 (31.8-35.4); MONOCYTES # (AUTO) 0.9 K/uL (0.4-2.0); MONOCYTES % (AUTO) 3.7 (0-10); NEUTROPHILS # (AUTO) 21.3 K/ul (2.0-6.9); NEUTROPHILS % (AUTO) 89.1; PLATELET COUNT 189 10^3/uL (140-440); RED BLOOD COUNT 4.75 10^6/ul (4.70-6.10); WHITE BLOOD COUNT 23.89 K/ul (4.2-10.2)
[2017-04-22 04:53] LABS: ALBUMIN 2.9 g/dL (3.4-5.0); ALBUMIN/GLOBULIN RATIO 0.78; ANION GAP 17.4; BILIRUBIN,TOTAL 0.39 mg/dL (0.00-1.20); BUN/CREATININE RATIO 28.45; CALCIUM 10.1 mg/dL (8.2-10.2); CREATININE 1.23 mg/dL (0.60-1.10); POTASSIUM 4.4 mmol/L (3.5-5.1); TOTAL PROTEIN 6.6 g/dL (5.8-8.1)
[2017-04-22] MEDS: DUONEB NEB SCH ×3 (05:22→19:17)
[2017-04-22] MEDS: PERFOROMIST NEB SCH ×2 (05:34→19:29)
[2017-04-22] MEDS: SOLU-CORTEF 100 MG IVP SCH ×4 (06:01→23:17)
[2017-04-22] MEDS: ASPIRIN EC PO SCH (09:46)
[2017-04-22] MEDS: BETAPACE PO SCH ×2 (09:46→20:10)
[2017-04-22] MEDS: CARDIZEM PO SCH ×2 (09:46→20:11)
[2017-04-22] MEDS: NORCO 10-325 PO PRN ×2 (11:45→22:43)
[2017-04-22] MEDS: HUMULIN R SUBCUT PRN ×2 (13:02→17:45)
[2017-04-22] MEDS: ZITHROMAX PO SCH (20:11)
[2017-04-22] MEDS: LIPITOR PO SCH (20:11)
[2017-04-22] MEDS: FLOMAX PO SCH (20:11)
[2017-04-22] MEDS ORDERED: XANAX PO SCH (21:00)
[2017-04-22] MEDS: ROCEPHIN 1 GM in SODIUM CHLORIDE 50 ML IV SCH (21:52)
[2017-04-23] MEDS: DUONEB NEB SCH ×2 (00:01→05:14)
[2017-04-23 04:37] LABS: ABG BASE EXCESS 8 (-2.0-2.0); ABG HCO3 33.3 (22.0-26.0); ABG TCO2 35 (22.0-28.0)
[2017-04-23] MEDS: PERFOROMIST NEB SCH (05:28)
[2017-04-23] MEDS: SOLU-CORTEF 100 MG IVP SCH (05:57)
[2017-04-23] MEDS: AZACTAM 1 GM in SODIUM CHLORIDE 50 ML IV SCH (05:57)
[2017-04-23 06:10] VITALS: BP 93/47; TEMP 97.6
[2017-04-23 06:51] LABS: BASOPHILS % (AUTO) 0.1 % (0.0-3.0); HEMOGLOBIN 12.5 g/dl (14.0-18.0); IMMATURE GRANULOCYTE % (AUTO) 1.5 % (0.0-5.0); LYMPHOCYTES # (AUTO) 1.7 K/uL (0.60-3.4); LYMPHOCYTES % (AUTO) 7.8 (10.0-50.0); MEAN CORPUSCULAR HEMOGLOBIN 28.1 pg (27.0-31.0); MEAN CORPUSCULAR HGB CONC 33.8 (31.8-35.4); MEAN CORPUSCULAR VOLUME 83.1 fl (80.0-94.0); MONOCYTES # (AUTO) 0.7 K/uL (0.4-2.0); MONOCYTES % (AUTO) 3.3 (0-10); NEUTROPHILS # (AUTO) 18.8 K/ul (2.0-6.9); NEUTROPHILS % (AUTO) 87.3; PLATELET COUNT 185 10^3/uL (140-440); RED BLOOD COUNT 4.45 10^6/ul (4.70-6.10); WHITE BLOOD COUNT 21.51 K/ul (4.2-10.2)
[2017-04-23 06:54] LABS: ALBUMIN 2.5 g/dL (3.4-5.0); ALBUMIN/GLOBULIN RATIO 0.89; BILIRUBIN,TOTAL 0.39 mg/dL (0.00-1.20); BUN/CREATININE RATIO 35.34; CALCIUM 9.4 mg/dL (8.2-10.2); CREATININE 1.16 mg/dL (0.60-1.10); TOTAL PROTEIN 5.3 g/dL (5.8-8.1)
[2017-04-23] MEDS: HUMULIN R SUBCUT PRN ×2 (07:01→11:18)
[2017-04-23] MEDS ORDERED: DECADRON 4 MG/ML SDV IM ONE (09:00)
[2017-04-23] MEDS: BETAPACE PO SCH (09:44)
[2017-04-23] MEDS: CARDIZEM PO SCH (09:45)
[2017-04-23] MEDS: ASPIRIN EC PO SCH (09:45)
--- NOTE | 2017-04-23 10:34 | CM.DICTOOL ---
ADMISSION: 04/20/17 18:33 DISCHARGE: April 23, 2017 DATE OF SERVICE: 04/23/17 FINAL DIAGNOSIS Pneumonia Shortness of air/Acute Respiratory Failure COPD, oxygen Hypertension Atrial fibrillation Dyslipidemia Cancer, lung and bladder Lobectomy, right 2/3 lung BPH Continued tobacco abuse Pacemaker Sleep apnea, c-pap GERD LAST VITALS Temp Pulse Resp BP Pulse Ox 97.6 F 60 18 93/47 L 95 04/23/17 06:00 04/23/17 06:00 04/23/17 06:00 04/23/17 06:00 04/23/17 06:00 ACTIVE HOME MEDICATIONS Acetaminophen/Hydrocodone Bitart ([place] 10-325) 1 tab PO TID PRN PRN Reason: Analgesia Last Admin: 04/22/17 22:43 Dose: 1 tab Alprazolam (Xanax) 1 mg PO BEDTIME [facility] Last Admin: 04/22/17 20:10 Dose: 1 mg Aspirin (Aspirin Ec) 81 mg PO DAILYWM [facility] Last Admin: 04/23/17 09:45 Dose: 81 mg Atorvastatin Calcium (Lipitor) 20 mg PO BEDTIME [facility] Last Admin: 04/22/17 20:11 Dose: 20 mg Diltiazem HCl (Cardizem) 60 mg PO BID [facility] Last Admin: 04/23/17 09:45 Dose: 60 mg Arformoterol Tartrate (Brovana) 1 vial Daily [facility] Last Admin: Dexlansoprazole (Dexilant) 60 mg Daily Last Admin: Polyethylene Glycol (Miralax) 17 Gm Daily at bedtime Last Admin: Cholecalciferol (Vitamin Ds) 1,000 units PO Daily Last Admin: Multivitamin 1 capsule Daily Last Admin: Cyclobenzaprine (Flexeril ) 10 mg Daily PRN Last Admin: Sotalol HCl (Betapace) 40 mg PO BID [facility] Last Admin: 04/23/17 09:44 Dose: 40 mg Tamsulosin HCl (Flomax) 0.4 mg PO BEDTIME [facility] Last Admin: 04/22/17 20:11 Dose: 0.4 mg ALLERGIES codeine [Codeine] Adverse Reaction (Verified 04/20/17 17:18) Penicillins Adverse Reaction (Verified 04/20/17 17:18) propoxyphene HCl [From Darvon] Adverse Reaction (Verified 04/20/17 17:18) NEW PRESCRIPTIONS: Prednisone 10 mg BID for 5 days. Take with meals Keflex 500 mg BID for 7 days SMOKING: Has been advised to stop smoking. States he has no intention of stopping. DISEASE SPECIFIC EDUCATION: Smoking Steroid Use; bone demineralization, GI upset Appointment Prescription LAB REVIEW: 04/23/17 06:21 04/23/17 06:21 04/23/17 06:21: Sodium 139, Potassium 4.0, Chloride 99, Carbon Dioxide 30, Anion Gap 14.0, BUN 41 H, Creatinine 1.16 H, Estimated GFR (MDRD) 60.00, BUN/ Creatinine Ratio 35.34, Glucose 234 H, Calcium 9.4, Total Bilirubin 0.39, AST 9 L, ALT 14, Alkaline Phosphatase 50 L, Total Protein 5.3 L, Albumin 2.5 L, Globulin 2.8, Albumin/Globulin Ratio 0.89 04/23/17 06:21: WBC 21.51 H, RBC 4.45 L, Hgb 12.5 L, Hct 37.0 L, MCV 83.1, MCH 28.1, MCHC 33.8, RDW Coeff of [place] 14.7, Plt Count 185, Immature Gran % (Auto) 1.5, Neut % (Auto) 87.3, Lymph % (Auto) 7.8 L, [place] % (Auto) 3.3, Eos % (Auto) 0.0, Baso % (Auto) 0.1, Immature Gran # (Auto) 0.3, Neut # 18.8 H, Lymph # 1.7, [place] # 0.7, Eos # 0.0, Baso # 0.0 04/23/17 04:30: Puncture Site Rb, O2 Saturation 91.0 L, ABG pH 7.390, ABG pCO2 55.0 H, ABG pO2 63.0 L, ABG HCO3 33.3 H, ABG Total CO2 35 H, ABG Base Excess 8 H , Nima Test +, FiO2 % 21.0 PLAN: Discharge home Diet: Regular as tolerated Activity: Resume as tolerated Continue to use nebulizer treatment of Brovana at home Continue to use home oxygen at 2 liters continuously An appointment is scheduled with Dr. Mcdonald on at 2 pm. Please call if you need to reschedule (an already scheduled appointment) Mr. Kitchen is alert and oriented x 3. He is ambulatory in the hallways without use of oxygen. He uses oxygen while in the room. He is independent with all ADL' s. Meal intakes are good at 50-100%. Skin is intact and free of decubitus ulcers. He has oxygen, c-pap and nebulizer at home. Jb Mcdonald MD Georgina Tejada APRN
--- NOTE | 2017-05-16 13:18 | PN ---
DATE OF SERVICE: 04/23/17 SUBJECTIVE: 81 year old white male hospitalized with acute bronchitis/pneumonitis. The patient was in acute respiratory failure. The patient has completely recovered and his blood gasses on room air, pO2 63, pCO2 55, pH 7.38 with 91% saturation. He was feeling a lot better and been wanting to go home for the last couple of days. The is in the room. REVIEW OF SYSTEMS: CONSTITUTIONAL: No night sweats. No fatigue, malaise, lethargy. No fever or chills. HEENT: Eyes: No visual changes. No eye pain. No eye discharge. ENT: No runny nose. No epistaxis. No sinus pain. No sore throat. No odynophagia. No congestion. RESPIRATORY: Mild cough, no congestion. No hemoptysis. No shortness of breath. CARDIOVASCULAR: No angina symptoms. No CHF symptoms. No atypical chest pain for CAD. No palpitations. No orthopnea. No PND. GASTROINTESTINAL: No abdominal pain. No nausea or vomiting. No diarrhea or constipation. No hematemesis. No hematochezia. Appetite has improved. GENITOURINARY: No urgency. No frequency. No dysuria. No hematuria. No obstructive symptoms. No discharge. No pain. No significant abnormal bleeding. MUSCULOSKELETAL: No musculoskeletal pain; no joint swelling. NEUROLOGICAL: No headache. No neck pain. No syncope. No seizures. No dizziness. PSYCHIATRIC: Not anxious. No depression. No suicidal thoughts. No homicidal thoughts. SKIN: No rash. No lesions. No wounds. ENDOCRINE: No unexplained weight loss. No weight gain. HEMATOLOGIC/LYMPHATIC: No anemia. No purpura. No petechiae. No prolonged or excessive bleeding. No palpable lymph nodes. PHYSICAL EXAMINATION: GENERAL: The patient is oriented to time, place and person. VITAL SIGNS: Temperature 97.6, pulse 60, respiratory rate 18, blood pressure 100/47 and pulse ox 95%. HEENT: Head normocephalic, atraumatic. Eyes: Extraocular muscles are intact. Pupils are equal, round and reactive to light and accommodation. Ears: No lesions. Nose appeared normal. Throat: No exudate or erythema. NECK: Supple. No JVD, no carotid bruit. No lymphadenopathy or thyromegaly. LUNGS: Decreased breath sounds but clear to auscultation. Percussion note normal. Chest symmetrical. HEART: S1, S2, no S3. No murmurs. No cyanosis or clubbing. No ascites. Pulses: Dorsalis pedis and posterior tibial pulses +1 to +2 both sides. ABDOMEN: Soft. Nontender. Bowel sounds active. No CVA tenderness. No mass felt. EXTREMITIES: No edema. Full range of motion of all extremities, equal. NEUROLOGIC: No focal deficit. Cranial nerves II through XII are grossly intact. No headache, no double vision or headache. SKIN: Not dry. Intact. Turgor - normal. LYMPHATIC: No palpable lymph nodes/no lymphedema. MUSCULOSKELETAL: Normal joints with no swelling. Muscle tone is normal. ASSESSMENT: 1. Pneumonitis 2. Acute bronchitis 3. Acute respiratory failure seems to be under control and partially resolved 4. COPD smoking 5. Pacemaker 6. C of the lung PLAN: 1. The patient was counseled for smoking. The patient has gone out to smoke an hour at a time while he is in the hospital. 2. He is up and about feeling better 3. Will be discharged on Keflex and Prednisone 4. 1cc Decadron to be given before discharge PROGNOSIS: Guarded The patient is going to be back with the same problems in near future. TIME SPENT: More than 30 minutes. Plan and coordination of the patient's care discussed in the presence of nurse. JORGE
--- NOTE | 2017-05-16 13:56 | DS ---
DATE OF SERVICE: 04/23/17 FINAL DIAGNOSIS: 1. Pneumonia 2. Shortness of air/acute respiratory failure 3. COPD, oxygen 4. Hypertension 5. Atrial fibrillation 6. Dyslipidemia 7. Cancer, lung and bladder 8. Lobectomy, right 2/3 lung 9. BPH 10.Continue tobacco abuse 11.Pacemaker 12.Sleep apnea, C-pap 13.GERD LAST VITALS: Temperature 97.6, pulse 60, respiratory rate 18, blood pressure 93/47 and pulse ox 95%. DISCHARGE INSTRUCTIONS: Discharge home. Continue to use nebulizer treatment of Brovana at home. Continue to use home oxygen at 2 liters continuously. Appointment is scheduled with Dr. Mcdonald on at 2pm. MEDICATIONS AT DISCHARGE: [place] 10-325mg PO three times a day PRN Xanax 1mg PO bedtime Aspirin Ec 81mg PO daily Lipitor 20mg PO bedtime Cardizem 60mg PO twice a day Brovana 1vial daily Dexilant 60mg daily Miralax 17 gram daily at bedtime Vitamin Ds 1,000 units PO daily Multivitamin 1 capsule daily Flexeril 10mg daily PRN Betapace 40mg PO twice a day Flomax 0.4mg PO bedtime ALLERGIES: Codeine Penicillins Propoxyphene HCL NEW PRESCRIPTIONS: Prednisone 10mg twice a day for 5 days. Take with meals Keflex 500mg twice a day for 7 days DIET INSTRUCTIONS: Regular as tolerated ACTIVITY: Resume as tolerated SMOKING: Has been advised to stop smoking. States he has no intention of stopping DISEASE SPECIFIC EDUCATION: Smoking Steroid Use; bone demineralization, GI upset Appointment Prescriptions HOSPITAL COURSE: 81 year old white male hospitalized with acute respiratory failure with pO2 42. Now his pO2 63 on room air. His pCO2 was 61 down to 55. The patient's condition has improved and he is up and about with no distress. He does out for smoking every couple of hours for half an hour while he is in the hospital. The patient would be discharged on Prednisone and Keflex and during the hospital stay was treated with Rocephin, Zithromax and IV steroids and NEBS treatment. The patient is non-compliant of his labs down and he has continued to smoke. Counseling for smoking done and he is not going to give up smoking. He has history of C of the lung. CONDITION: Stable LABS: Hgb 12.5, hct 23, WBC 21,000 likely cause of WBC being 21,000 is steroid use which he has shown before also his hyperglycemia is strictly related to steroid use. His creatinine is 1.1, BUN 41 and he is advised to drink a lot of fluids. TIME SPENT: More than 60 minutes. MTDD
--- NOTE | 2017-05-16 13:57 | PN ---
04/20/17: Level 5 04/21/17: Intermediate 04/22/17: Intermediate 04/23/17: D as in discharge MTDD
--- NOTE | 2017-06-05 08:45 | PN ---
DATE OF SERVICE: 04/20/17 SUBJECTIVE: 81 year old white male hospitalized through the emergency room with acute respiratory failure. The patient's blood gasses showed pO2 of 40 with pCO2 of 60 with pH of 7.35 with 82% saturation. I think the blood gasses could have been taken from venous blood but in any case the patient has been put on 2 liters and his oxygen saturation is 92%. He doesn't seem to be in that much distress after being given NEBS treatment. The patient came because of shortness of breath, worsening cough of several days duration. The was present with him. PHYSICAL EXAMINATION: GENERAL: The patient is , lying/sitting in bed in no distress. VITAL SIGNS: Oxygen saturation on 2 liters is 90-91%. HEENT: Head normocephalic, atraumatic. Eyes: Extraocular muscles are intact. Pupils are equal, round and reactive to light and accommodation. Ears: No lesions. Nose appeared normal. Throat: No exudate or erythema. NECK: Supple. No JVD, no carotid bruit. No lymphadenopathy or thyromegaly. LUNGS: Decreased breath sounds but more air entry. I had examined this patient at approximately 8:30pm while he was in the special care unit that time he was already comfortable. He has already gone out to smoke. Percussion note normal. Chest symmetrical. HEART: S1, S2, no S3. No murmurs. No cyanosis or clubbing. No ascites. Pulses: Dorsalis pedis and posterior tibial pulses +1 to +2 both sides. ABDOMEN: Soft. Nontender. Bowel sounds active. No CVA tenderness. No mass felt. EXTREMITIES: No edema. Full range of motion of all extremities, equal. NEUROLOGIC: No focal deficit. Cranial nerves II through XII are grossly intact. No headache, no double vision or headache. SKIN: Not dry. Intact. Turgor - normal. LYMPHATIC: No palpable lymph nodes/no lymphedema. MUSCULOSKELETAL: Normal joints with no swelling. Muscle tone is normal. PLAN: 1. Patient is going to have a ABG within 5-10 minutes. 2. The patient is going to be on Steroids 3. IV antibiotics 4. Going to add Zithromax 5. Counseling for smoking done, patient has C of the lung PROGNOSIS: Poor CONDITION: Stable TIME SPENT: More than 30 minutes. Plan and coordination of the patient's care discussed in the presence of nurse. JORGE
--- NOTE | 2017-06-05 08:54 | PN ---
DATE OF SERVICE: 04/21/17 SUBJECTIVE: 81 year old white male hospitalized with acute respiratory failure. The patient' s pO2 was low 40's with pCO2 of 60 with practically normal pH with 82% saturation on room air. The patient is heavy smoker and has symptoms of acute bronchitis. Non-compliant. The patient was given NEBS treatment and steroids were given. The patient's condition improved remarkably in few hours to the point that he went out to smoke in humid weather. The patient's condition has improved and he is talking. He doesn't have any symptoms of CHF. REVIEW OF SYSTEMS: CONSTITUTIONAL: No night sweats. No fatigue, malaise, lethargy. No fever or chills. HEENT: Eyes: No visual changes. No eye pain. No eye discharge. ENT: No runny nose. No epistaxis. No sinus pain. No sore throat. No odynophagia. No congestion. RESPIRATORY: No cough, no congestion. No hemoptysis. No shortness of breath. CARDIOVASCULAR: No angina symptoms. No CHF symptoms. No atypical chest pain for CAD. No palpitations. No orthopnea. GASTROINTESTINAL: No abdominal pain. No nausea or vomiting. No diarrhea or constipation. No hematemesis. No hematochezia. GENITOURINARY: No urgency. No frequency. No dysuria. No hematuria. No obstructive symptoms. No discharge. No pain. No significant abnormal bleeding. MUSCULOSKELETAL: No musculoskeletal pain; no joint swelling. NEUROLOGICAL: No headache. No neck pain. No syncope. No seizures. No dizziness. PSYCHIATRIC: Not anxious. No depression. No suicidal thoughts. No homicidal thoughts. SKIN: No rash. No lesions. No wounds. ENDOCRINE: No unexplained weight loss. No weight gain. HEMATOLOGIC/LYMPHATIC: No anemia. No purpura. No petechiae. No prolonged or excessive bleeding. No palpable lymph nodes. PHYSICAL EXAMINATION: GENERAL: The patient is oriented to time, place and person. VITAL SIGNS: Temperature 96.9, pulse 82, respiratory rate 20, blood pressure 125/74 and pulse ox 91%. HEENT: Head normocephalic, atraumatic. Eyes: Extraocular muscles are intact. Pupils are equal, round and reactive to light and accommodation. Ears: No lesions. Nose appeared normal. Throat: No exudate or erythema. NECK: Supple. No JVD, no carotid bruit. No lymphadenopathy or thyromegaly. LUNGS: Decreased breath sounds but clear to auscultation. Percussion note normal. Chest symmetrical. HEART: S1, S2, no S3. No murmurs. No cyanosis or clubbing. No ascites. Pulses: Dorsalis pedis and posterior tibial pulses +1 to +2 both sides. ABDOMEN: Soft. Nontender. Bowel sounds active. No CVA tenderness. No mass felt. EXTREMITIES: No edema. Full range of motion of all extremities, equal. NEUROLOGIC: No focal deficit. Cranial nerves II through XII are grossly intact. No headache, no double vision or headache. SKIN: Not dry. Intact. Turgor - normal. LYMPHATIC: No palpable lymph nodes/no lymphedema. MUSCULOSKELETAL: Normal joints with no swelling. Muscle tone is normal. ASSESSMENT: 1. Acute bronchitis 2. Severe chronic lung disease 3. Acute respiratory failure 4. C of the lung 5. Pacemaker 6. Hyperglycemia from steroid use. PLAN: 1. Continue IV antibiotics, Steroids and NEBS treatment 2. Counseling for smoking done 3. Advised to join pulmonary rehab 4. Sliding scale with coverage CONDITION: Stable TIME SPENT: More than 30 minutes. Plan and coordination of the patient's care discussed in the presence of nurse. JORGE
--- NOTE | 2017-06-05 09:00 | PN ---
DATE OF SERVICE: 04/22/17 SUBJECTIVE: 81 year old white male hospitalized with acute respiratory failure. The patient has acute bronchitis with severe chronic lung disease. The patient has continued to smoke. The patient has been going out for an hour and a half, sits outside and smokes continuously while he is in the hospital. The temperature outside is 90 degree but he is feeling OK. The is in the room when I examined the patient. REVIEW OF SYSTEMS: CONSTITUTIONAL: No night sweats. No fatigue, malaise, lethargy. No fever or chills. HEENT: Eyes: No visual changes. No eye pain. No eye discharge. ENT: No runny nose. No epistaxis. No sinus pain. No sore throat. No odynophagia. No congestion. RESPIRATORY: Cough and congestion. No hemoptysis. No shortness of breath. CARDIOVASCULAR: No angina symptoms. No CHF symptoms. No atypical chest pain for CAD. No palpitations. No orthopnea. No PND. GASTROINTESTINAL: No abdominal pain. No nausea or vomiting. No diarrhea or constipation. No hematemesis. No hematochezia. Appetite has improved. GENITOURINARY: No urgency. No frequency. No dysuria. No hematuria. No obstructive symptoms. No discharge. No pain. No significant abnormal bleeding. MUSCULOSKELETAL: No musculoskeletal pain; no joint swelling. NEUROLOGICAL: No headache. No neck pain. No syncope. No seizures. No dizziness. PSYCHIATRIC: Not anxious. No depression. No suicidal thoughts. No homicidal thoughts. SKIN: No rash. No lesions. No wounds. ENDOCRINE: No unexplained weight loss. No weight gain. HEMATOLOGIC/LYMPHATIC: No anemia. No purpura. No petechiae. No prolonged or excessive bleeding. No palpable lymph nodes. PHYSICAL EXAMINATION: GENERAL: The patient is oriented to time, place and person. VITAL SIGNS: Temperature 97, pulse 82, respiratory rate 19, blood pressure 138/ 74 and pulse ox 93%. HEENT: Head normocephalic, atraumatic. Eyes: Extraocular muscles are intact. Pupils are equal, round and reactive to light and accommodation. Ears: No lesions. Nose appeared normal. Throat: No exudate or erythema. NECK: Supple. No JVD, no carotid bruit. No lymphadenopathy or thyromegaly. LUNGS: Bilateral wheeze mild with good air entry. Percussion note normal. Chest symmetrical. HEART: S1, S2, no S3. No murmurs. No cyanosis or clubbing. No ascites. Pulses: Dorsalis pedis and posterior tibial pulses +1 to +2 both sides. ABDOMEN: Soft. Nontender. Bowel sounds active. No CVA tenderness. No mass felt. EXTREMITIES: No edema. Full range of motion of all extremities, equal. NEUROLOGIC: No focal deficit. Cranial nerves II through XII are grossly intact. No headache, no double vision or headache. SKIN: Not dry. Intact. Turgor - normal. LYMPHATIC: No palpable lymph nodes/no lymphedema. MUSCULOSKELETAL: Normal joints with no swelling. Muscle tone is normal. LABS: Hgb 13.3, hct 39, WBC 23,000 with normal differential, creatinine 1.2, BUN 35 and potassium 4.4 ASSESSMENT: 1. Acute respiratory failure 2. Acute bronchitis 3. Severe chronic lung disease 4. C of the lung 5. Smoking 6. Hypertension 7. Dyslipidemia 8. Hyperglycemia with steroids 9. Chronic kidney disease PLAN: 1. Continue steroids 2. Continue NEBS treatment 3. Continue antibiotics 4. Counseling for smoking done PROGNOSIS: Not good considering the patient's blood gasses, CO2 retention and his inability to stop smoking. TIME SPENT: More than 30 minutes. Plan and coordination of the patient's care discussed in the presence of nurse. JORGE
--- NOTE | 2017-06-14 08:59 | HP ---
DATE OF SERVICE: 04/20/17 REASON FOR HOSPITALIZATION: Shortness of breath HISTORY OF PRESENT ILLNESS: 81 year old white male brought to the emergency room with shortness of breath of several days duration. The patient's has symptoms of acute bronchitis/ pneumonitis for past several days and he decided to come and his brought him down to the emergency room. The patient was in mild to moderate respiratory distress. His blood gasses on admission showed pH 7.35 with pO2 42 with pCO2 60 with oxygen saturation in low 80's. The patient was given NEBS treatment in the emergency room and was given steroids. The patient's condition was improved and he was hospitalized for further treatment. PAST MEDICAL HISTORY/SURGICAL HISTORY: The patient has a history of C of lung with resection Severe chronic lung disease, smoking Hypertension Dyslipidemia Chronic kidney disease Pacemaker Placement Hyperglycemia with steroids History of PVC's Generalized osteoarthritis Reflux disease REVIEW OF SYSTEMS: CONSTITUTIONAL: No night sweats. Weakness and fatigue. No fever or chills. HEENT: Eyes: No visual changes. No eye pain. No eye discharge. ENT: No runny nose. No epistaxis. No sinus pain. No sore throat. No odynophagia. No ear pain. No congestion. RESPIRATORY: Cough and congestion, yellowish to greenish sputum production. No hemoptysis. No shortness of breath. CARDIOVASCULAR: No angina symptoms. No CHF symptoms. No atypical chest pain for CAD. No palpitations. No orthopnea. Pleuritic type of pain, right sided. GASTROINTESTINAL: No abdominal pain. No nausea or vomiting. No diarrhea or constipation. No hematemesis. No hematochezia. Appetite has decreased lately for past couple of days. GENITOURINARY: No urgency. No frequency. No dysuria. No hematuria. No obstructive symptoms. No discharge. No pain. No significant abnormal bleeding. MUSCULOSKELETAL: No musculoskeletal pain. No joint swelling. No arthritis. NEUROLOGICAL: No headache. No neck pain. No syncope. No seizures. No dizziness. PSYCHIATRIC: Not anxious. No depression. No suicidal thoughts. No homicidal thoughts. SKIN: No rash. No lesions. No wounds. ENDOCRINE: No unexplained weight loss. No weight gain. HEMATOLOGIC/LYMPHATIC: No anemia. No purpura. No petechiae. No prolonged or excessive bleeding. No palpable lymph nodes. PERSONAL/FAMILY/SOCIAL HISTORY: The patient is heavy smoker, no alcohol abuse and lives with the . He does all activity of daily living. MEDICATIONS: Xanax 1mg at bedtime Lipitor 20mg PO bedtime Dexilant 60mg PO daily [place] 10-325mg three times a day PRN Cardizem 60mg PO twice a day Miralax 17 grams at bedtime Brovana NEBS daily twice a day Aspirin 81mg PO daily Betapace 40mg twice a day Flomax 0.4mg once a day Flexeril 10mg PO PRN twice a day ALLERGIES: Codeine Penicillin Propoxyphene PHYSICAL EXAMINATION: GENERAL: The patient is oriented to time, place and person. VITAL SIGNS: Temperature 98.2, pulse 70, respiratory rate 21, blood pressure 138/74, pulse ox 93% with 2 liters. HEENT: Head normocephalic, atraumatic. Eyes: Extraocular muscles are intact. Pupils are equal, round and reactive to light and accommodation. Ears: No lesions. Nose appeared normal. Throat: No exudate or erythema. NECK: Supple. No JVP, no carotid bruit. No lymphadenopathy or thyromegaly. LUNGS: Decreased breath sounds with mild wheeze. Percussion note normal. Chest symmetrical. HEART: S1, S2, no S3. No murmurs. No cyanosis or clubbing. No ascites. Pulses: Dorsalis pedis and posterior tibial pulses +1 bilateral. PMI not palpable on auscultation. ABDOMEN: Soft. Nontender. Bowel sounds active. No CVA tenderness. No mass felt. EXTREMITIES: No edema. Full range of motion of all extremities, equal. NEUROLOGIC: No focal deficit. Cranial nerves II through XII are grossly intact. No headache, no double vision or headache. Mental status normal. Reflexes equal and normal. SKIN: Dry. Intact. Turgor - normal. Mucosa membrane dry. LYMPHATIC: No palpable lymph nodes/no lymphedema. MUSCULOSKELETAL: Normal joints with no swelling. Muscle tone is normal. ASSESSMENT: 1. Acute respiratory failure with acute bronchitis/pneumonitis 2. C of the lung 3. Smoking 4. Pacemaker 5. Dyslipidemia 6. Hypertension 7. Generalized osteoarthritis PLAN: 1. Admit to Special Care 2. Monitor oximetry 3. Monitor telemetry 4. EKG 5. The patient has pleuritic type of pain, will give steroids for bronchitis and pleuritic pain 6. IV antibiotics Rocephin and Azactam 7. Continue Sotalol, Flomax. 8. NEBS treatment 9. Counseling for smoking done CONDITION: Stable TIME SPENT: More than 70 minutes. MTDD
== END 2017-04-23 11:28 | disposition home or self-care (01) | DRG 193 ==
LOC: ED 17:15 → SCU 18:33
PROVIDERS: ADMIT Internal Medicine; ATTEND Internal Medicine
DX: J18.9 Pneumonia, unspecified organism (principal); J96.00 Acute respiratory failure, unspecified whether with hypoxia or hypercapnia; J44.0 Chronic obstructive pulmonary disease with (acute) lower respiratory infection; I10 Essential (primary) hypertension; I25.2 Old myocardial infarction; K21.9 Gastro-esophageal reflux disease without esophagitis; J20.9 Acute bronchitis, unspecified; J44.9 Chronic obstructive pulmonary disease, unspecified; I48.91 Unspecified atrial fibrillation; R73.9 Hyperglycemia, unspecified; E78.5 Hyperlipidemia, unspecified; N40.0 Benign prostatic hyperplasia without lower urinary tract symptoms; G47.30 Sleep apnea, unspecified; F17.200 Nicotine dependence, unspecified, uncomplicated; F17.290 Nicotine dependence, other tobacco product, uncomplicated; Z79.899 Other long term (current) drug therapy; Z85.51 Personal history of malignant neoplasm of bladder; Z85.118 Personal history of other malignant neoplasm of bronchus and lung; Z90.2 Acquired absence of lung [part of]; Z95.0 Presence of cardiac pacemaker; Z99.81 Dependence on supplemental oxygen; I12.9 Hypertensive chronic kidney disease with stage 1 through stage 4 chronic kidney disease, or unspecified chronic kidney disease; N18.9 Chronic kidney disease, unspecified
CPT/HCPCS: 36415; 80053; 81001; 82550; 82803; 82962; 83605; 84145; 84484; 85025; 85379; 87040; 87070; 87081; 93005; 93010; 94640; 96365; 96375; 99223; 99232; 99239; 99284

== ENCOUNTER 2017-07-24 12:50 | Inpatient (IN) ==
[2017-07-24] MEDS ORDERED: SOLU-MEDROL 125 MG IVP STA ×2 (13:41→15:54)
[2017-07-24] MEDS ORDERED: DUONEB NEB STA (13:41)
--- NOTE | 2017-07-24 14:21 | CT ---
CT of the chest without intravenous contrast. Comparison: CT chest performed 04/20/2017. Reason for exam: Cough has one lung. FINDINGS: Atherosclerotic disease is seen within the aorta and distal arterial vasculature including the coronary vessels. The aorta measures 4 cm level of the arch. Image interpretation is limited b y the lack of intravenous contrast administration. There are scarring changes/pleural thickening in the right hemithorax with operative changes after pa rtial lobectomy. There are multiple ground-glass and solid pulmonary nodules in the right hemithorax measuring up to 7 mm as seen on axial image number 26. The previously described left basilar infiltrates are improved on today's exam. There are residual g round-glass opacities in the left lung base. Operative changes are seen after implanted intracardiac device placement. The heart is not enlarged. Impression: 1. Similar appearing pleural thickening in the right apex with operative changes after partial right lobectomy. 2. Multiple sub centimeter nodules are seen in the right hemithorax. Recommend 6-month follow-up to document stability. 3. The previously described left lower lobe inflammatory changes and infiltrates are improved on tod ay's exam. There is likely residual pneumonitis/infection with mild ground-glass in the left lung ba se.
--- NOTE | 2017-07-24 15:50 | ED.PDOC ---
General ED Provider: Dr. CAROLINA OLIVEIRA Chief Complaint: Respiratory Complaint Stated Complaint: cough, short of air , wheez Time Seen by Physician: 13:00 Mode of Arrival: Walk-In Information Source: Patient, Family Exam Limitations: No limitations Primary Care Provider: MILLIE RUSH Nursing and Triage Documentation Reviewed and Agree: Yes Reviewed sepsis parameters & appropriate labs ordered?: Yes System Inflammatory Response Syndrome: Not Applicable Sepsis Protocol: For patient's 13 years and over: Temp is 96.8 and below OR 101 and greater Pulse >90 BPM Resp >20/minute Acutely Altered Mental Status Are patient's symptoms suggestive of a new infection, such as: -Pneumonia -Skin, Soft Tissue -Endocarditis -UTI -Bone, Joint Infection -Implantable Device -Acute Abdominal Infection -Wound Infection -Meningitis -Blood Stream Catheter Infection -Unknown Respiratory Complaint Exam - Respiratory Complaint/Exam Onset/Duration: cough, flu like symptoms and wheezing x 3 days worse today Symptoms Are: Still present Timing: Constant Initial Severity: Mild Current Severity: Mild Location: Chest Character: Reports: Non-productive cough Aggravating: Reports: None Alleviating: Reports: Bronchodilators, Nasal suction Associated Signs and Symptoms: Reports: Nasal congestion. Denies: Rapid breathing, Dyspnea, Fever, Chills, Chest pain, Pleuritic chest pain, Wheezing, Hemoptysis, Dizziness, Calf pain, Calf swelling, Edema, URI, Hoarseness, Sinus discomfort, Vomiting, Sore throat, Weight loss, Decreased oral intake, Increased thirst, Increased appetite, Increased urination Related History: Reports: Similar episode History of Healthcare-Acquired Pneumonia: No Related Surgical History: Reports: None Pulmonary Embolism Risk Factors: Bedrest Cardiac Risk Factors: Reports: Prior [place], CAD, Elevated lipids, Diabetes, Hypertension Pseudomonas Risk Factors: Reports: Chronic Lung Disease Tuberculosis Risk Factors: Reports: Chronic Resp. Faliure Status Asthmaticus Risk Factors: Reports: None Home Oxygen Use: Yes Recent Stress Test: No Recent Echo/LV Function: No Current Antibiotic Use: No Current Asthma Medication Use: No Respiratory Distress: None Inadequate Respiratory Effort: No Dysphagia Present: No Stridor Present: No JVD Present: No Accessory Muscle Use: No Retractions: Not Present Diminished Breath Sounds: Yes Prolonged Respiration: Expiratory phase Sinus Tenderness: None Grunting Respirations: No Kussmaul Respirations: No Differential Diagnoses: CHF, Pulmonary Edema, COPD Exacerbation, Pneumonia, Bronchitis, Lower Resp. Infection Non-Traumatic Chest Pain Syncope: EKG Performed Review of Systems - Review Of Systems Constitutional: Reports: Malaise, Weakness, Loss of appetite Eyes: Reports: No symptoms Ears, Nose, Mouth, Throat: Reports: No symptoms Respiratory: Reports: Cough, Short of air, Wheezing Cardiac: Reports: No symptoms GI: Reports: No symptoms : Reports: No symptoms Musculoskeletal: Reports: No symptoms Skin: Reports: No symptoms Neurological: Reports: No symptoms Endocrine: Reports: No symptoms Hematologic/Lymphatic: Reports: No symptoms All Other Systems: Reviewed and Negative Past Medical History - Past Medical History Previously Healthy: No Endocrine: Reports: DM 2, Dyslipidemia Cardiovascular: Reports: [place], Hypertension, Other (enlarged heart) Respiratory: Reports: COPD, Pneumonia, Other (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) Hematological: Reports: Anemia Gastrointestinal: Reports: None Genitourinary: Reports: None Neuro/Psych: Reports: None Musculoskeletal: Reports: None Cancer: Reports: Lung, Other (bladder tumor) Other Pertinent Past Medical History: 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 - Surgical History General Surgical History: Reports: Appendectomy, Pacemaker, Other (partial pneumonectomy right upper lobe-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) - Family History Family History: Reports: Cancer (sisters brothers mother all with due to brain tumors"mine skipped my head and got my lung") - Social History Smoking Status: Current every day smoker Hx Substance Use: No Alcohol Screening: None - Immunizations Tetanus Shot up to Date: Yes Physical Exam - Physical Exam Appearance: Ill-appearing Ill-appearing: Moderate Pain Distress: Moderate Eyes: ROBERTO, EOMI, Conjunctiva clear ENT: Ears normal, Nose normal, Oropharynx normal Respiratory: Crackles, Rhonchi Cardiovascular: RRR, Pulses normal, No rub, No murmur GI/: Soft, Nontender, No masses, Bowel sounds normal, No Organomegaly Musculoskeletal: Normal strength, ROM intact, No edema, No calf tenderness Skin: Warm, Dry, Normal color Neurological: Sensation intact, Motor intact, Reflexes intact, Cranial nerves intact, Alert, Oriented Psychiatric: Affect appropriate, Mood appropriate Re-Evaluation - Re-Evaluation Time of Re-Evaluation: 14:00 Status: Improved Vital Signs Stable: Yes Pain Level: 0 Appearance: NAD Lungs: Other (ronchi) - Re-Evaluation Time of Re-Evaluation: 15:52 Status: Improved Vital Signs Stable: Yes Pain Level: 0 Appearance: NAD Skin: Warm and Dry Neuro: Alert and Oriented X3 CV: RRR Physician Notification - Case Discussed Physician Notified: diana Time of Notification: 15:51 Admit To: Inpatient Critical Care Note - Critical Care Note Total Time (mins): 0 Course - Course Hematology/Chemistry: 07/24/17 13:20 07/24/17 13:20 Orders, Labs, Meds: Lab Review 07/24/17 07/24/17 07/24/17 13:20 13:20 13:20 WBC 12.22 H RBC 4.52 L Hgb 12.6 L Hct 38.7 L MCV 85.6 MCH 27.9 MCHC 32.6 RDW Coeff of [place] 13.5 Plt Count 165 Immature Gran % (Auto) 0.3 Neut % (Auto) 60.9 Lymph % (Auto) 23.2 [place] % (Auto) 12.5 H Eos % (Auto) 2.3 Baso % (Auto) 0.8 Immature Gran # (Auto) 0.0 Neut # 7.4 H Lymph # 2.8 [place] # 1.5 Eos # 0.3 Baso # 0.1 Puncture Site O2 Saturation ABG pH ABG pCO2 ABG pO2 ABG HCO3 ABG Total CO2 ABG Base Excess Nima Test FiO2 % Sodium 139 Potassium 4.3 Chloride 101 Carbon Dioxide 30 Anion Gap 12.3 BUN 19 H Creatinine 1.16 H Estimated GFR (MDRD) 60.00 BUN/Creatinine Ratio 16.37 Glucose 121 H Lactic Acid Calcium 9.8 Total Bilirubin 0.7 AST 16 ALT 11 L Alkaline Phosphatase 74 Total Creatine Kinase 27 Troponin I < 0.0100 Total Protein 7.1 Albumin 3.3 L Globulin 3.8 Albumin/Globulin Ratio 0.87 Procalcitonin 0.09 Influenza A (Rapid) Influenza B (Rapid) 07/24/17 07/24/17 07/24/17 13:40 13:54 14:00 WBC RBC Hgb Hct MCV MCH MCHC RDW Coeff of [place] Plt Count Immature Gran % (Auto) Neut % (Auto) Lymph % (Auto) [place] % (Auto) Eos % (Auto) Baso % (Auto) Immature Gran # (Auto) Neut # Lymph # [place] # Eos # Baso # Puncture Site R radial O2 Saturation 84.0 L ABG pH 7.359 ABG pCO2 49.7 H ABG pO2 51.0 L* ABG HCO3 28.1 H ABG Total CO2 30 H ABG Base Excess 3 H Nima Test + FiO2 % 21.0 Sodium Potassium Chloride Carbon Dioxide Anion Gap BUN Creatinine Estimated GFR (MDRD) BUN/Creatinine Ratio Glucose Lactic Acid 10.8 Calcium Total Bilirubin AST ALT Alkaline Phosphatase Total Creatine Kinase Troponin I Total Protein Albumin Globulin Albumin/Globulin Ratio Procalcitonin Influenza A (Rapid) Negative by naat Influenza B (Rapid) Negative by naat Orders Category Date Time Status ABG DRAW REQUEST Stat CARDIO 07/24/17 13:40 Ordered EKG-(ED ONLY) Stat CARDIO 07/24/17 13:38 Ordered NEBULIZER TREATMENT Stat CARDIO 07/24/17 13:41 Ordered ABG Stat LAB 07/24/17 13:40 Ordered BLOOD CULTURE Stat LAB 07/24/17 13:40 Ordered CBC W/ AUTO DIFF Stat LAB 07/24/17 13:38 Ordered COMPREHENSIVE METABOLIC PANEL Stat LAB 07/24/17 13:38 Ordered CREATINE KINASE Stat LAB 07/24/17 13:38 Ordered LACTIC ACID Stat LAB 07/24/17 13:40 Ordered MOLECULAR GROUP A STREP Stat LAB 07/24/17 13:54 Results PROCALCITONIN Stat LAB 07/24/17 Ordered RAPID FLU A/B Stat LAB 07/24/17 13:38 Uncollected STREP SCREEN Stat LAB 07/24/17 13:38 Uncollected TROPONIN I Stat LAB 07/24/17 13:38 Ordered Ipratropium/Albuterol Neb [Duoneb] MEDS 07/24/17 13:41 Stat 1 vial NEB ONCE STA Methylprednisolone Sod Succ/Pf [Solu-Medrol 125 mg] MEDS 07/24/17 13:41 Stat 125 [address]P ONCE STA CT CHEST W/O CONTRAST Stat RADS 07/24/17 13:38 Ordered Medications Discontinued Medications Generic Name Dose Route Start Last Admin Trade Name Freq PRN Reason Stop Dose Admin Albuterol/Ipratropium 1 vial 07/24/17 13:41 07/24/17 14:24 Duoneb NEB 07/24/17 13:42 1 vial ONCE STA Administration Methylprednisolone Sodium Succinate 125 mg 07/24/17 13:41 07/24/17 14:06 Solu-Medrol 125 Mg IVP 12/26/17 13:42 125 mg ONCE STA Administration Vital Signs: Temp Pulse Resp BP Pulse Ox 07/24/17 12:51 99.3 F 80 20 117/69 83 L Departure - Departure Time of Disposition: 15:52 Disposition: ADMITTED INPATIENT Discharge Problem: Shortness of breath, Weakness generalized Instructions: Chronic Respiratory Failure (GEN) Condition: Good Pt referred to PMD for follow-up: Yes Additional Instructions: Please call your Family Physician as soon as possible to schedule a follow-up appointment. Allergies/Adverse Reactions: Allergies codeine [Codeine] Adverse Reaction (Verified 07/24/17 13:30) Penicillins Adverse Reaction (Verified 07/24/17 13:30) propoxyphene HCl [From Darvon] Adverse Reaction (Verified 07/24/17 13:30) Home Medications: Ambulatory Orders Alprazolam [Xanax] 1 mg PO BEDTIME 01/05/13 Atorvastatin Calcium [Lipitor] 20 mg PO BEDTIME 01/05/13 Hydrocodone/Acetaminophen [Hydrocodon-Acetaminophn 10-325] 1 each PO TID PRN Diltiazem HCl [Cardizem] 60 mg PO BID 12/04/15 Polyethylene Glycol 3350 [Miralax] 17 gm PO BEDTIME 12/04/15 Arformoterol Tartrate [Brovana] 1 vial NEB DAILY 04/04/16 Aspirin [Ecotrin] 81 mg PO DAILYWM 07/11/16 Sotalol HCl [Betapace] 40 mg PO BID 07/11/16 Cholecalciferol (Vitamin D3) [Vitamin D] 1,000 unit PO DAILY 09/12/16 Multivitamin 1 cap PO DAILY 09/12/16 Cyclobenzaprine HCl [Flexeril] 10 mg PO DAILY PRN 04/20/17 Pantoprazole Sodium [Protonix] 40 mg PO DAILY 07/24/17 Disposition Discussed With: Patient
[2017-07-24] MEDS ORDERED: VANCOMYCIN 1,000 MG in SODIUM CHLORIDE 200 ML IV STA (15:56)
[2017-07-24] MEDS ORDERED: NORCO 10-325 PO PRN (16:01)
[2017-07-24 17:10] VITALS: BMI 19.8
[2017-07-24] MEDS: SODIUM CHLORIDE 1,000 ML IV SCH (17:26)
[2017-07-24] MEDS: DUONEB NEB SCH ×2 (18:01→21:49)
[2017-07-24] MEDS: ROCEPHIN 1 GM in SODIUM CHLORIDE 50 ML IV SCH (18:42)
[2017-07-24] MEDS: CARDIZEM PO SCH (20:57)
[2017-07-24] MEDS: LIPITOR PO SCH (20:57)
[2017-07-24] MEDS: BETAPACE PO SCH (20:57)
[2017-07-24] MEDS: XANAX PO SCH (20:57)
[2017-07-24] MEDS ORDERED: NON-FORMULARY MEDICATION (Alprazolam [Xanax] 1 MG) PO SCH (21:00)
[2017-07-24] MEDS: SOLU-MEDROL 125 MG IVP SCH (21:03)
[2017-07-25] MEDS: DUONEB NEB SCH ×4 (05:18→22:50)
[2017-07-25] MEDS: CARDIZEM PO SCH ×2 (09:05→20:50)
[2017-07-25] MEDS: SODIUM CHLORIDE 1,000 ML IV SCH (09:05)
[2017-07-25] MEDS: ROCEPHIN 1 GM in SODIUM CHLORIDE 50 ML IV SCH (09:05)
[2017-07-25] MEDS: BETAPACE PO SCH ×2 (09:05→20:49)
[2017-07-25] MEDS: SOLU-MEDROL 125 MG IVP SCH ×2 (09:06→21:50)
--- NOTE | 2017-07-25 10:08 | DI ---
EXAM: Chest one view HISTORY: Follow up pneumonia COMPARISON: CT chest 07/24/2017 TECHNIQUE: Single view of the chest was performed FINDINGS: Right-sided cardiac pacer. There is scarring and volume loss in the right lung. Mild hazy opacity left lung base. Heart normal in size. Mediastinal contour unchanged, noting atherosclerosi s. No pleural effusion or pneumothorax IMPRESSION: Mild hazy opacity left lung base likely correlates with the ground-glass / pneumonitis d emonstrated on CT
--- NOTE | 2017-07-25 14:10 | PN ---
DATE OF SERVICE: 07/24/17 SUBJECTIVE: Adrien Kitchen was seen in the emergency room with complaint of cough, congestion, shortness of breath. The patient hs history of CA of the lung on the right side with pneumonectomy. The patient's mental status - he is alert. PHYSICAL EXAMINATION: HEENT: Head normocephalic, atraumatic. Eyes: Extraocular muscles are intact. Pupils are equal, round and reactive to light and accommodation. Ears: No lesions. Nose appeared normal. Throat: No exudate or erythema. NECK: Supple. No JVD, no carotid bruit. No lymphadenopathy or thyromegaly. LUNGS: Decreased breath sounds with mild wheeze. Percussion note normal. Chest symmetrical. HEART: S1, S2, no S3. No murmurs. No cyanosis or clubbing. No ascites. Pulses: Dorsalis pedis and posterior tibial pulses +1 to +2 both sides. ABDOMEN: Soft. Nontender. Bowel sounds active. No CVA tenderness. No mass felt. EXTREMITIES: No edema. Full range of motion of all extremities, equal. NEUROLOGIC: No focal deficit. Cranial nerves II through XII are grossly intact. No headache, no double vision or headache. SKIN: Not dry. Intact. Turgor - normal. LYMPHATIC: No palpable lymph nodes/no lymphedema. MUSCULOSKELETAL: Normal joints with no swelling. Muscle tone is normal. ASSESSMENT: 1. ACUTE BRONCHITIS WITH SEVERE CHRONIC LUNG DISEASE WITH CONTINUED SMOKING 2. HISTORY OF CA OF THE LUNG WITH PNEUMONECTOMY PLAN: 1. Give IV fluids 2. IV antibiotics 3. Nebs treatment 4. Encourage the patient to eat CONDITION: Stable. TIME SPENT: More than 30 minutes. Plan and coordination of the patient's care discussed in the presence of nurse. JORGE
[2017-07-25] MEDS: LIPITOR PO SCH (20:49)
[2017-07-25] MEDS: XANAX PO SCH (20:50)
[2017-07-26] MEDS: DUONEB NEB SCH (05:15)
[2017-07-26 05:41] VITALS: BP 138/87; TEMP 97
--- NOTE | 2017-07-26 09:38 | CM.DICTOOL ---
ADMISSION: 07/24/17 16:00 DISCHARGE: 07/26/17 FINAL DIAGNOSIS Shortness of breath (Acute) Weakness generalized (Acute) ACUTE BRONCHITIS SEVERE CHRONIC LUNG DISEASE CONTINUED SMOKING HISTORY OF LUNG CANCER PNEUMONECTOMY, RUL, RML ATRIAL FIBRILLATION PACEMAKER, 2006 CAD GERD BLADDER CANCER BPH LAST VITALS Temp Pulse Resp BP Pulse Ox 97.0 F L 75 22 138/87 92 L 07/26/17 05:38 07/26/17 05:38 07/26/17 05:38 07/26/17 05:38 07/26/17 05:38 ACTIVE HOME MEDICATIONS Acetaminophen/Hydrocodone Bitart ([place] 10-325) 1 tab PO TID PRN PRN Reason: Analgesia Last Admin: 07/24/17 18:22 Dose: 1 tab Alprazolam (Xanax) 1 mg PO BEDTIME [facility] Last Admin: 07/25/17 20:50 Dose: 1 mg Atorvastatin Calcium (Lipitor) 20 mg PO BEDTIME [facility] Last Admin: 07/25/17 20:49 Dose: 20 mg Diltiazem HCl (Cardizem) 60 mg PO BID [facility] Last Admin: 07/25/17 20:50 Dose: 60 mg Sotalol HCl (Betapace) 40 mg PO BID [facility] Last Admin: 07/25/17 20:49 Dose: 40 mg MIRALAX 17GM PO AT BEDTIME BROVANA 1 VIAL NEB DAILY ASPIRIN 81 MG DAILY VITAMIN D3 1,000 UNIT DAILY MULTIVITAMIN 1 CAP DAILY FLEXERIL 10MG PO DAILY PRN PROTONIX 40MG PO DAILY ALLERGIES codeine [Codeine] Adverse Reaction (Verified 07/24/17 13:30) Penicillins Adverse Reaction (Verified 07/24/17 13:30) propoxyphene HCl [From Darvon] Adverse Reaction (Verified 07/24/17 13:30) NEW PRESCRIPTIONS: 1. KEFLEX 500MG 3 TIMES A DAY FOR 7 DAYS. 2. PREDNISONE 20MG 2 TIMES A DAY FOR 2 DAYS THEN 10MG 2 TIMES A DAY FOR 5 DAYS. TAKE WITH FOOD. SMOKING: STOP SMOKING. AVOID SECOND HAND SMOKE. DISEASE SPECIFIC EDUCATION: COPD MEDICATIONS DIET ACTIVITY SMOKING CESSATION LAB REVIEW: 07/26/17 05:00 07/26/17 05:00 07/26/17 05:00: Sodium 141, Potassium 4.2, Chloride 106, Carbon Dioxide 26, Anion Gap 13.2, BUN 27 H, Creatinine 1.10, Estimated GFR (MDRD) 64.00, BUN/ Creatinine Ratio 24.54, Glucose 234 H, Calcium 9.4, Total Bilirubin 0.3, AST 16 , ALT 12, Alkaline Phosphatase 68, Total Protein 6.9, Albumin 3.2 L, Globulin 3.7, Albumin/Globulin Ratio 0.86 07/26/17 05:00: WBC 24.31 H D, RBC 4.29 L, Hgb 12.0 L, Hct 36.6 L, MCV 85.3, MCH 28.0, MCHC 32.8, RDW Coeff of [place] 13.7, Plt Count 199 D, Immature Gran % ( Auto) 1.1, Neut % (Auto) 90.0, Lymph % (Auto) 6.7 L, [place] % (Auto) 2.1, Eos % ( Auto) 0.0, Baso % (Auto) 0.1, Immature Gran # (Auto) 0.3, Neut # 21.9 H, Lymph # 1.6, [place] # 0.5, Eos # 0.0, Baso # 0.0 PLAN: DISCHARGE HOME TODAY. CONTINUE HOME MEDICATIONS PER NURSING SHEET. NEW MEDICATIONS: 1. KEFLEX 500MG TAKE 1 CAPSULE 3 TIMES A DAY FOR 7 DAYS. TAKE UNTIL ALL GONE. 2. PREDNISONE 20MG TAKE 1 TABLET 2 TIMES A DAY FOR 2 DAYS THEN 10MG TAKE 1 TABLET 2 TIMES A DAY FOR 5 DAYS. TAKE WITH FOOD. DIET TOLERATED. ACTIVITY GRADUALLY RESUME ACTIVITY. FOLLOW UP WITH DR. RUSH ON SundayJuly AT 2:15PM. CALL IF UNABLE TO KEEP APPOINTMENT. [phone]. SITTING UP IN CHAIR. ALERT AND ORIENTED X 4. DR. RUSH INTO SEE PATIENT. PATIENT STATES HE WANTS TO GO HOME. DR. RUSH DISCUSSED DISCHARGE WITH PATIENT INCLUDING MEDICATIONS, DIET, ACTIVITY AND FOLLOW UP APPOINTMENT. PATIENT VERBALIZES UNDERSTANDING AND AGREEMENT. APPETITE HAS BEEN FAIR. VITAL SIGNS ARE STABLE. HAS BEEN AFEBRILE. HEART TONES ARE REGULAR WITH TELEMETRY REVEALING AV PACED. LUNGS ARE CLEAR WITH COARSE BREATH SOUNDS. BREATH SOUNDS ARE ABSENT IN RIGHT UPPER AND MIDDLE LOBE. WEARS O2 PRN. POX 92% ON ROOM AIR. HAS INTERMITTENT PRODUCTIVE COUGH. COLOR UNKNOWN. ABDOMEN IS SOFT, NON-TENDER WITH BOWEL SOUNDS POSITIVE IN ALL 4 QUADS. LAST BM 07/24/17. PEDAL PULSE POSITIVE WITHOUT EDEMA. HAS SALINE LOCK IN RIGHT FOREARM SITE IS CLEAR. DEMANDED NURSES TO REMOVE IV FLUIDS LAST PM. IS INDEPENDENT WITH ACTIVITY OF DAILY LIVING WITH STEADY GAIT. NO ACUTE DISTRESS NOTED. DR. MILLIE RUSH MD Sheree RYAN APRN
[2017-07-26] MEDS: BETAPACE PO SCH (09:39)
[2017-07-26] MEDS: CARDIZEM PO SCH (09:39)
[2017-07-26] MEDS: ROCEPHIN 1 GM in SODIUM CHLORIDE 50 ML IV SCH (09:40)
[2017-07-26] MEDS: SODIUM CHLORIDE 1,000 ML IV SCH (09:40)
[2017-07-26] MEDS: SOLU-MEDROL 125 MG IVP SCH (09:40)
--- NOTE | 2017-07-27 15:52 | HP ---
DATE OF SERVICE: 07/24/17 REASON FOR HOSPITALIZATION: Acute bronchitis, chronic lung disease, respiratory distress. HISTORY OF PRESENT ILLNESS: 82-year-old white male was brought to the emergency room by the family because of the above complaints and problems. The patient has cough and congestion for the past 3 to 4 days getting worse. He was unable to lay down. His appetite has been getting worse. He has continued to smoke heavy in spite of the fact that he had right partial pneumonectomy, CA of the lung. The patient was seen and examined in the emergency room by the ER attending and was diagnosed to have severe acute bronchitis with hypoxemia. The patient was in respiratory failure. The patient is hospitalized for further treatment with IV antibiotics, IV steroids, nebs treatment, oxygen, IV fluids. The patient's is in the room. PAST MEDICAL HISTORY: CA of the lung Severe chronic lung disease Smoker Pacemaker Reflux disease Generalized anxiety disorder Dyslipidemia Generalized osteoarthritis Ventricular arrhythmias Diabetes mellitus Hypertension Chronic kidney disease PAST SURGICAL HISTORY: Right partial pneumonectomy REVIEW OF SYSTEMS: CONSTITUTIONAL: Fatigue and weakness. No night sweats. No fever or chills. HEENT: Eyes: No visual changes. No eye pain. No eye discharge. ENT: No runny nose. No epistaxis. No sinus pain. No sore throat. No odynophagia. No ear pain. No congestion. RESPIRATORY: Positive for cough with congestion and shortness of breath on minimal exertion. No hemoptysis. CARDIOVASCULAR: No angina symptoms. No CHF symptoms. No atypical chest pain for CAD. No palpitations. No orthopnea. GASTROINTESTINAL: No abdominal pain. No nausea or vomiting. No diarrhea or constipation. No hematemesis. No hematochezia. GENITOURINARY: No urgency. No frequency. No dysuria. No hematuria. No obstructive symptoms. No discharge. No pain. No significant abnormal bleeding. MUSCULOSKELETAL: No musculoskeletal pain. No joint swelling. No arthritis. NEUROLOGICAL: No headache. No neck pain. No syncope. No seizures. No dizziness. PSYCHIATRIC: Not anxious. No depression. No suicidal thoughts. No homicidal thoughts. SKIN: No rash. No lesions. No wounds. ENDOCRINE: No unexplained weight loss. No weight gain. HEMATOLOGIC/LYMPHATIC: No anemia. No purpura. No petechiae. No prolonged or excessive bleeding. No palpable lymph nodes. PERSONAL/FAMILY/SOCIAL HISTORY: The patient is , lives with the . He is a heavy smoker. No alcohol abuse. He does all activities of daily living. MEDICATIONS: Xanax 1 mg p.o. at bedtime Lipitor 20 mg at bedtime [place] 10/325 t.i.d. p.r.n. Cardizem 60 mg p.o. twice a day Miralax 17 gm p.o. at bedtime Brovana nebs daily Aspirin 81 mg p.o. daily Betapace 40 mg twice a day Flexeril 10 mg p.o. daily Protonix 40 mg p.o. q.a.m. ALLERGIES: CODEINE, PENICILLIN, DARVON PHYSICAL EXAMINATION: GENERAL: The patient seems to be oriented to time, place and person in mild distress. V/S: Temperature 98.4, pulse 80/min, respiratory rate 20, BP 120/78, pulse ox 91 % with 2L. HEENT: Face symmetrical. Head normocephalic, atraumatic. Eyes: Extraocular muscles are intact. Pupils are equal, round and reactive to light and accommodation. Sclerae nonicteric. Ears: No lesions. Nose appeared normal. Throat: No exudate or erythema. NECK: Supple. No JVD, no carotid bruit. No lymphadenopathy or thyromegaly. LUNGS: Decreased breath sounds with mild wheeze. Percussion note normal. Chest symmetrical. HEART: S1, S2, no S3. No murmurs. No cyanosis or clubbing. No ascites. Pulses: Dorsalis pedis and posterior tibial pulses +1 to +2 both sides. ABDOMEN: Soft. Nontender. Bowel sounds active. No CVA tenderness. No mass felt. EXTREMITIES: No pedal edema. Pulses +1 bilaterally. Full range of motion of all extremities, equal. NEUROLOGIC: Motor sensory normal. Cranial nerves II through XII are grossly intact. No headache, no double vision or headache. SKIN: Dry. Mucous membranes dry. Intact. Turgor - normal. LYMPHATIC: No palpable lymph nodes/no lymphedema. MUSCULOSKELETAL: Normal joints with no swelling. Muscle tone is normal. ASSESSMENT: 1. ACUTE BRONCHITIS/PNEUMONITIS WITH RESPIRATORY FAILURE 2. SEVERE CHRONIC LUNG DISEASE WITH SMOKING 3. RIGHT PARTIAL PNEUMONECTOMY WITH CA OF THE LUNG 4. PACEMAKER 5. DYSLIPIDEMIA 6. DIABETES MELLITUS 7. HYPERTENSION 8. GENERALIZED OSTEOARTHRITIS 9. ANEMIA 10. CHRONIC KIDNEY DISEASE PLAN: 1. IV antibiotics 2. IV steroids 3. Nebs treatment 4. Telemetry 5. EKG 6. Monitor blood gases 7. Counseling for smoking done 8. Advised to join pulmonary rehab. The is in the room, case discussed. TIME SPENT: More than 70 minutes. JORGE
--- NOTE | 2017-08-20 07:03 | PN ---
DATE OF SERVICE: 07/25/17 SUBJECTIVE: 82-year-old white male hospitalized with COPD, acute bronchitis. The patient's condition has improved a lot. He is breathing a lot better. He wants to go home. REVIEW OF SYSTEMS: CONSTITUTIONAL: No night sweats. No fatigue, malaise, lethargy. No fever or chills. HEENT: Eyes: No visual changes. No eye pain. No eye discharge. ENT: No runny nose. No epistaxis. No sinus pain. No sore throat. No odynophagia. No congestion. RESPIRATORY: No cough, no congestion. No hemoptysis. Breathing better but still has shortness of breath on minimal exertion as usual. No PND. CARDIOVASCULAR: No angina symptoms. No CHF symptoms. No atypical chest pain for CAD. No palpitations. No orthopnea. GASTROINTESTINAL: Appetite has improved. No abdominal pain. No nausea or vomiting. No diarrhea or constipation. No hematemesis. No hematochezia. GENITOURINARY: No urgency. No frequency. No dysuria. No hematuria. No obstructive symptoms. No discharge. No pain. No significant abnormal bleeding. MUSCULOSKELETAL: No musculoskeletal pain; no joint swelling. NEUROLOGICAL: No headache. No neck pain. No syncope. No seizures. No dizziness. PSYCHIATRIC: Not anxious. No depression. No suicidal thoughts. No homicidal thoughts. SKIN: No rash. No lesions. No wounds. ENDOCRINE: No unexplained weight loss. No weight gain. HEMATOLOGIC/LYMPHATIC: No anemia. No purpura. No petechiae. No prolonged or excessive bleeding. No palpable lymph nodes. PHYSICAL EXAMINATION: GENERAL: The patient is oriented to time, place and person. VITAL SIGNS: Temperature 97.1, pulse 74, respiratory rate 20, BP 113/60, pulse ox 92%. HEENT: Head normocephalic, atraumatic. Eyes: Extraocular muscles are intact. Pupils are equal, round and reactive to light and accommodation. Ears: No lesions. Nose appeared normal. Throat: No exudate or erythema. NECK: Supple. No JVD, no carotid bruit. No lymphadenopathy or thyromegaly. LUNGS: Decreased breath sounds but clear to auscultation. Percussion note normal. Chest symmetrical. HEART: S1, S2, no S3. No murmurs. No cyanosis or clubbing. No ascites. Pulses: Dorsalis pedis and posterior tibial pulses +1 to +2 both sides. ABDOMEN: Soft. Nontender. Bowel sounds active. No CVA tenderness. No mass felt. EXTREMITIES: No edema. Full range of motion of all extremities, equal. NEUROLOGIC: No focal deficit. Cranial nerves II through XII are grossly intact. No headache, no double vision or headache. SKIN: Not dry. Intact. Turgor - normal. LYMPHATIC: No palpable lymph nodes/no lymphedema. MUSCULOSKELETAL: Normal joints with no swelling. Muscle tone is normal. LABS: Hemoglobin 11.5, hematocrit 35, WBC 12,000, normal differential. Creatinine 1.2 , BUN 28, potassium 4.2. ASSESSMENT: 1. ACUTE BRONCHITIS/PNEUMONITIS RESOLVING 2. SEVERE CHRONIC LUNG DISEASE 3. SMOKING 4. CA OF THE LUNG WITH PNEUMONECTOMY 5. PACEMAKER 6. HYPERTENSION PLAN: 1. Give IV antibiotics, steroids, nebs treatment. 2. Counseling for smoking done. PROGNOSIS: Not good. CONDITION: Stable. TIME SPENT: More than 30 minutes. Plan and coordination of the patient's care discussed in the presence of nurse. JORGE
--- NOTE | 2017-08-20 10:01 | PN ---
DATE OF SERVICE: 07/26/17 SUBJECTIVE: 82-year-old white male hospitalized with acute bronchitis/pneumonitis. The patient's condition has improved remarkably. He is up and about feeling a lot better. He wants to go home. He is already dressed up, good appetite and finished all his breakfast. REVIEW OF SYSTEMS: CONSTITUTIONAL: Mild fatigue. No night sweats. No malaise, lethargy. No fever or chills. HEENT: Eyes: No visual changes. No eye pain. No eye discharge. ENT: No runny nose. No epistaxis. No sinus pain. No sore throat. No odynophagia. No congestion. RESPIRATORY: No cough, no congestion. No hemoptysis. No shortness of breath. No PND. CARDIOVASCULAR: No angina symptoms. No CHF symptoms. No atypical chest pain for CAD. No palpitations. No orthopnea. GASTROINTESTINAL: No abdominal pain. No nausea or vomiting. No diarrhea or constipation. No hematemesis. No hematochezia. GENITOURINARY: No urgency. No frequency. No dysuria. No hematuria. No obstructive symptoms. No discharge. No pain. No significant abnormal bleeding. MUSCULOSKELETAL: No musculoskeletal pain; no joint swelling. NEUROLOGICAL: No headache. No neck pain. No syncope. No seizures. No dizziness. PSYCHIATRIC: Not anxious. No depression. No suicidal thoughts. No homicidal thoughts. SKIN: No rash. No lesions. No wounds. ENDOCRINE: No unexplained weight loss. No weight gain. HEMATOLOGIC/LYMPHATIC: No anemia. No purpura. No petechiae. No prolonged or excessive bleeding. No palpable lymph nodes. PHYSICAL EXAMINATION: GENERAL: Oriented to time, place and person. V/S: Temperature 97, pulse 75, respiratory rate 22, BP 138/87, pulse ox 92% with 2L. HEENT: Head normocephalic, atraumatic. Eyes: Extraocular muscles are intact. Pupils are equal, round and reactive to light and accommodation. Ears: No lesions. Nose appeared normal. Throat: No exudate or erythema. NECK: Supple. No JVD, no carotid bruit. No lymphadenopathy or thyromegaly. LUNGS: Decreased breath sounds with mild wheeze. Clear to auscultation. Percussion note normal. Chest symmetrical. HEART: S1, S2, no S3. No murmurs. No cyanosis or clubbing. No ascites. Pulses: Dorsalis pedis and posterior tibial pulses +1 to +2 both sides. ABDOMEN: Soft. Nontender. Bowel sounds active. No CVA tenderness. No mass felt. EXTREMITIES: No edema. Full range of motion of all extremities, equal. NEUROLOGIC: No focal deficit. Cranial nerves II through XII are grossly intact. No headache, no double vision or headache. SKIN: Not dry. Intact. Turgor - normal. LYMPHATIC: No palpable lymph nodes/no lymphedema. MUSCULOSKELETAL: Normal joints with no swelling. Muscle tone is normal. LABS: Hemoglobin 12, hematocrit 36, WBC 24,000, normal differential. Creatinine 1.1, BUN 27, potassium 4.2, glucose 234. The patient's hyperglycemia is more pronounced because of steroid use. He has diabetes mellitus with low A1C. The WBC count is high because of steroid use. ASSESSMENT: 1. ACUTE BRONCHITIS/PNEUMONITIS RESOLVED 2. PACEMAKER FOR CAPTURING FUNCTIONING WELL PLAN: 1. The is in the room. He will be discharged home with steroids and antibiotic Keflex. 2. Counseling for smoking done. The patient has declined to quit smoking. He had CA of the lung. CONDITION: Stable PROGNOSIS: Poor TIME SPENT: More than 30 minutes. Plan and coordination of the patient's care discussed in the presence of nurse. JORGE
--- NOTE | 2017-08-20 10:13 | DS ---
DATE OF SERVICE: 07/26/17 FINAL DIAGNOSIS: 1. SHORTNESS OF BREATH (ACUTE) 2. WEAKNESS, GENERALIZED (ACUTE) 3. ACUTE BRONCHITIS 4. SEVERE CHRONIC LUNG DISEASE 5. CONTINUED SMOKING 6. HISTORY OF LUNG CANCER 7. PNEUMONECTOMY, RUL, RML 8. ATRIAL FIBRILLATION 9. PACEMAKER, 2007 10. CAD 11. GERD 12. BLADDER CANCER 13. BPH DISCHARGE INSTRUCTIONS: Followup appointment with Dr. Mcdonald on August 01 at 2:15 p.m. LAST VITALS: Temperature 97.0, pulse 75, Respiratory Rate 22, BP 138/87, pulse ox 92 MEDICATIONS AT DISCHARGE: Acetaminophen/Hydrocodone ([place] 10-325) one tab p.o. t.i.d. p.r.n. Alprazolam (Xanax) 1 mg p.o. bedtime PRIYANKA Atorvastatin (Lipitor) 20 mg p.o. bedtime PRIYANKA Diltiazem (Cardizem) 60 mg p.o. b.i.d. PRIYANKA Sotalol (Betapace) 40 mg p.o. b.i.d. PRIYANKA Miralax 17 gm p.o. bedtime Brovana one vial neb daily Aspirin 81 mg daily Vitamin D3 1000 unit daily Multivitamin 1 cap daily Flexeril 10 mg p.o. daily p.r.n. Protonix 40 mg p.o. daily NEW PRESCRIPTIONS: Keflex 500 mg three times a day for 7 days Prednisone 20 mg two times a day for two days then 10 mg two times a day for five days. Take with food. DIET INSTRUCTIONS: As tolerated. ACTIVITY: Gradually resume activity. SMOKING: Stop smoking. Avoid second-hand smoke. DISEASE SPECIFIC EDUCATION: COPD Medications Diet Activity Smoking cessation HOSPITAL COURSE: 82-year-old white male hospitalized with acute bronchitis, pneumonitis with respiratory distress. The patient is a heavy smoker, has a right pneumonectomy, partial, with CA of the lung. The patient has continued to smoke. The patient was treated with IV antibiotics, Rocephin and also given IV steroids with nebs treatment. His condition improved remarkably. He was also given IV fluids. At the time of discharge, the patient wsa up and about. His lungs had good air entry with mild wheeze. Abdomen soft. Bowel sounds active. Appetite was improved remarkably. His hydration status improved. He was discharged while he was walking out of the hospital with his bag pushing a wheelchair. He said the first thing he is going to do when he gets outside the hospital is to smoke. The patient was seen and examined with the nurse practitioner. PROGNOSIS: Poor TIME SPENT: More than 60 minutes. JORGE
--- NOTE | 2017-08-20 10:15 | PN ---
CODING FOR BILLING 07/24/17 LEVEL 5 07/25/17 INTERMEDIATE 07/26/17 DISCHARGE MTDD
== END 2017-07-26 09:53 | disposition home or self-care (01) | DRG 203 ==
LOC: ED 12:50 → MEDSURG A 16:00
PROVIDERS: ADMIT Internal Medicine; ATTEND Internal Medicine
DX: J20.9 Acute bronchitis, unspecified (principal); R06.02 Shortness of breath; R53.1 Weakness; R06.2 Wheezing; E11.9 Type 2 diabetes mellitus without complications; J44.9 Chronic obstructive pulmonary disease, unspecified; Z72.0 Tobacco use; Z85.118 Personal history of other malignant neoplasm of bronchus and lung; Z90.2 Acquired absence of lung [part of]; I48.91 Unspecified atrial fibrillation; Z95.0 Presence of cardiac pacemaker; K21.9 Gastro-esophageal reflux disease without esophagitis; Z85.51 Personal history of malignant neoplasm of bladder; N40.0 Benign prostatic hyperplasia without lower urinary tract symptoms
CPT/HCPCS: 36415; 80053; 82550; 82803; 83605; 84145; 84484; 85025; 87040; 87502; 87651; 87880; 93005; 93010; 94640; 96374; 99223; 99232; 99239; 99285

== ENCOUNTER 2017-08-06 15:41 | Inpatient (IN) ==
[2017-08-06] MEDS ORDERED: DUONEB NEB STA (16:02)
[2017-08-06] MEDS ORDERED: SOLU-MEDROL 125 MG IVP STA (16:03)
[2017-08-06] MEDS ORDERED: ROCEPHIN 2 GM in SODIUM CHLORIDE 100 ML IV STA (17:52)
[2017-08-06] MEDS ORDERED: VANCOMYCIN 1,000 MG in SODIUM CHLORIDE 200 ML IV STA (17:53)
--- NOTE | 2017-08-06 17:58 | ED.PDOC ---
General ED Provider: Dr. CAROLINA OLIVEIRA Chief Complaint: Shortness of Air Stated Complaint: short of air Time Seen by Physician: 15:50 (cough, short of air , SEEN ON ARRIVAL WITH EMS AND SUZANE ) Mode of Arrival: Ambulance Information Source: Patient Exam Limitations: No limitations Primary Care Provider: MILLIE RUSH Nursing and Triage Documentation Reviewed and Agree: Yes Reviewed sepsis parameters & appropriate labs ordered?: Yes System Inflammatory Response Syndrome: Not Applicable Sepsis Protocol: For patient's 13 years and over: Temp is 96.8 and below OR 101 and greater Pulse >90 BPM Resp >20/minute Acutely Altered Mental Status Are patient's symptoms suggestive of a new infection, such as: -Pneumonia -Skin, Soft Tissue -Endocarditis -UTI -Bone, Joint Infection -Implantable Device -Acute Abdominal Infection -Wound Infection -Meningitis -Blood Stream Catheter Infection -Unknown System Inflammatory Response Syndrome: Not Applicable Respiratory Complaint Exam - Respiratory Complaint/Exam Onset/Duration: arrived by EMS WITH SOB . ONSET TODAY HISTORY OF PRIOR LUNG RESECTION Symptoms Are: Still present Timing: Constant Initial Severity: Mild Current Severity: Mild Location: Chest Character: Reports: Non-productive cough Aggravating: Reports: None Alleviating: Reports: Bronchodilators, Upright position, Spontaneous resolution Associated Signs and Symptoms: Reports: Chills, URI, Nasal congestion, Decreased oral intake Related History: Reports: Similar episode History of Healthcare-Acquired Pneumonia: No Related Surgical History: Reports: None Pulmonary Embolism Risk Factors: Bedrest ( LUNG RESECTION AND LUNG CANCER ) Cardiac Risk Factors: Reports: Hypertension Pseudomonas Risk Factors: Reports: Chronic Lung Disease Tuberculosis Risk Factors: Reports: None Status Asthmaticus Risk Factors: Reports: None Home Oxygen Use: Yes Recent Stress Test: No Recent Echo/LV Function: No Current Antibiotic Use: No Current Asthma Medication Use: No Respiratory Distress: Mild Inadequate Respiratory Effort: No Stridor Present: No JVD Present: No Retractions: Not Present Diminished Breath Sounds: Yes Sinus Tenderness: None Grunting Respirations: No Kussmaul Respirations: No Differential Diagnoses: Pneumonia, Bronchitis, Lower Resp. Infection Non-Traumatic Chest Pain Syncope: EKG Performed Review of Systems - Review Of Systems Constitutional: Reports: Chills, Malaise, Weakness Eyes: Reports: No symptoms Ears, Nose, Mouth, Throat: Reports: No symptoms Respiratory: Reports: Cough, Short of air Cardiac: Reports: No symptoms GI: Reports: No symptoms : Reports: No symptoms Musculoskeletal: Reports: No symptoms Skin: Reports: No symptoms Neurological: Reports: No symptoms Endocrine: Reports: No symptoms Hematologic/Lymphatic: Reports: No symptoms All Other Systems: Reviewed and Negative Past Medical History - Past Medical History Previously Healthy: No Endocrine: Reports: DM 2, Dyslipidemia Cardiovascular: Reports: [place], Hypertension, Other (enlarged heart) Respiratory: Reports: COPD, Pneumonia, Other (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) Hematological: Reports: Anemia Gastrointestinal: Reports: None Genitourinary: Reports: None Neuro/Psych: Reports: None Musculoskeletal: Reports: None Cancer: Reports: Lung, Other (bladder tumor) Other Pertinent Past Medical History: 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 - Surgical History General Surgical History: Reports: Appendectomy, Pacemaker, Other (partial pneumonectomy right upper lobe-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) - Family History Family History: Reports: Cancer (sisters brothers mother all with due to brain tumors"mine skipped my head and got my lung") - Social History Smoking Status: Current every day smoker, Heavy tobacco smoker Hx Substance Use: No Alcohol Screening: None - Immunizations Tetanus Shot up to Date: No Physical Exam - Physical Exam Appearance: Ill-appearing Ill-appearing: Moderate Pain Distress: Moderate Eyes: ROBERTO, EOMI, Conjunctiva clear ENT: Ears normal, Nose normal, Oropharynx normal Respiratory: Breath sounds diminished, Rhonchi, Wheezes Cardiovascular: RRR, Pulses normal, No rub, No murmur GI/: Soft, Nontender, No masses, Bowel sounds normal, No Organomegaly Musculoskeletal: Normal strength, ROM intact, No edema, No calf tenderness Skin: Warm, Dry, Normal color Neurological: Sensation intact, Motor intact, Reflexes intact, Cranial nerves intact, Alert, Oriented Psychiatric: Affect appropriate, Mood appropriate Physician Notification - Case Discussed Physician Notified: PMD Time of Notification: 18:10 Admit To: Inpatient Critical Care Note - Critical Care Note Total Time (mins): 0 Course - Course Hematology/Chemistry: 08/06/17 16:50 08/06/17 16:50 Orders, Labs, Meds: Lab Review 08/06/17 08/06/17 08/06/17 16:06 16:18 16:20 WBC RBC Hgb Hct MCV MCH MCHC RDW Coeff of Shelby Plt Count Neutrophils % (Manual) Band Neutrophils % Lymphocytes % (Manual) Monocytes % (Manual) Reactive Lymphocytes Anisocytosis Puncture Site Rr O2 Saturation 82.0 L ABG pH 7.504 H* ABG pCO2 42.1 ABG pO2 42.0 L* ABG HCO3 33.2 H ABG Total CO2 34 H ABG Base Excess 10 H Nima Test + O2 Delivery Device Nc Oxygen Liter Flow 5.00 Sodium Potassium Chloride Carbon Dioxide Anion Gap BUN Creatinine Estimated GFR (MDRD) BUN/Creatinine Ratio Glucose Lactic Acid Calcium Total Bilirubin AST ALT Alkaline Phosphatase Total Creatine Kinase Troponin I Total Protein Albumin Globulin Albumin/Globulin Ratio Procalcitonin 47.12 Influenza A (Rapid) Negative by naat Influenza B (Rapid) Negative by naat 08/06/17 08/06/17 08/06/17 16:50 16:50 16:50 WBC 64.12 H* RBC 5.04 Hgb 14.1 Hct 43.0 MCV 85.3 MCH 28.0 MCHC 32.8 RDW Coeff of Shelby 14.1 Plt Count 184 Neutrophils % (Manual) 85.0 H Band Neutrophils % 5.0 Lymphocytes % (Manual) 4.0 L Monocytes % (Manual) 4.0 Reactive Lymphocytes 2.0 Anisocytosis Not present Puncture Site O2 Saturation ABG pH ABG pCO2 ABG pO2 ABG HCO3 ABG Total CO2 ABG Base Excess Nima Test O2 Delivery Device Oxygen Liter Flow Sodium 141 Potassium 4.8 Chloride 99 Carbon Dioxide 32 H Anion Gap 14.8 BUN 37 H Creatinine 1.62 H Estimated GFR (MDRD) 41.00 BUN/Creatinine Ratio 22.83 Glucose 222 H Lactic Acid 21.2 H Calcium 10.4 H Total Bilirubin 1.1 AST 17 ALT 15 Alkaline Phosphatase 86 Total Creatine Kinase 26 Troponin I 0.0690 Total Protein 7.4 Albumin 3.2 L Globulin 4.2 Albumin/Globulin Ratio 0.76 Procalcitonin Influenza A (Rapid) Influenza B (Rapid) Orders Category Date Time Status ABG DRAW REQUEST Stat CARDIO 08/06/17 16:06 Ordered EKG-(ED ONLY) Stat CARDIO 08/06/17 16:02 Ordered NEBULIZER TREATMENT Stat CARDIO 08/06/17 16:02 Ordered ED IV/MEDIPORT/POWERPORT .ONCE EMERGENCY 08/06/17 16:02 Active ABG Stat LAB 08/06/17 16:06 Completed BLOOD CULTURE Stat LAB 08/06/17 16:58 Received CBC W/ AUTO DIFF Stat LAB 08/06/17 16:51 Ordered COMPREHENSIVE METABOLIC PANEL Stat LAB 08/06/17 16:51 Ordered CREATINE KINASE Stat LAB 08/06/17 16:51 Ordered LACTIC ACID Stat LAB 08/06/17 16:52 Ordered MANUAL DIFFERENTIAL Stat LAB 08/06/17 16:50 Completed MOLECULAR FLU A/B Stat LAB 08/06/17 16:20 Received MOLECULAR FLU A/B Stat LAB 08/06/17 16:51 Uncollected MOLECULAR GROUP A STREP Stat LAB 08/06/17 16:20 Completed MOLECULAR GROUP A STREP Stat LAB 08/06/17 16:51 Uncollected PROCALCITONIN Stat LAB 08/06/17 16:18 Received TROPONIN I Stat LAB 08/06/17 16:51 Ordered 0.9 % Sodium Chloride [Saline Flush] MEDS 08/06/17 16:02 Active 1 syr IVF PRN PRN Ceftriaxone Sodium [Rocephin] 2 gm MEDS 08/06/17 17:52 Ordered 0.9 % Sodium Chloride [Sodium Chloride] 100 ml IV ONCE Ipratropium/Albuterol Neb [Duoneb] MEDS 08/06/17 16:02 Discontinued 1 vial NEB ONCE STA Methylprednisolone Sod Succ/Pf [Solu-Medrol 125 mg] MEDS 08/06/17 16:03 Discontinued 125 mg IVP ONCE STA Vancomycin HCl [Vancomycin] 1,000 mg MEDS 08/06/17 17:53 Ordered 0.9 % Sodium Chloride [Sodium Chloride] [address] ABDOMEN/PELVIS WO CONTRAST Stat RADS 08/06/17 17:[address] CHEST W/O CONTRAST Stat RADS 08/06/17 17:19 Taken Medications Generic Name Dose Route Start Last Admin Trade Name Freq PRN Reason Stop Dose Admin Ceftriaxone Sodium 2 gm/ 100 mls @ 100 mls/hr 08/06/17 17:52 Sodium Chloride IV 08/06/17 18:51 ONCE STA Vancomycin HCl 1,000 mg/ 200 mls @ 100 mls/hr 08/06/17 17:53 Sodium Chloride IV 08/06/17 19:52 ONCE STA Sodium Chloride 1 syr 08/06/17 16:02 08/06/17 17:12 Saline Flush IVF 1 syr PRN PRN Administration To flush IV Discontinued Medications Generic Name Dose Route Start Last Admin Trade Name Freq PRN Reason Stop Dose Admin Albuterol/Ipratropium 1 vial 08/06/17 16:02 08/06/17 16:39 Duoneb NEB 08/06/17 16:03 1 vial ONCE STA Administration Methylprednisolone Sodium Succinate 125 mg 08/06/17 16:03 08/06/17 17:12 Solu-Medrol 125 Mg IVP 08/06/17 16:04 125 mg ONCE STA Administration Vital Signs: Temp Pulse Resp BP Pulse Ox 08/06/17 15:42 97.1 F L 80 24 113/63 82 L Departure - Departure Time of Disposition: 18:00 Disposition: ADMITTED INPATIENT Discharge Problem: Shortness of breath Acute and chronic respiratory failure Qualifiers: Respiratory failure complication: hypoxia and hypercapnia Qualified Code(s): J96.21 - Acute and chronic respiratory failure with hypoxia; J96.22 - Acute and chronic respiratory failure with hypercapnia; J96.22 - Acute and chronic respiratory failure with hypercapnia; J96.22 - Acute and chronic respiratory failure with hypercapnia Instructions: Dyspnea (ED) Condition: Good Pt referred to PMD for follow-up: Yes Additional Instructions: Please call your Family Physician as soon as possible to schedule a follow-up appointment. Allergies/Adverse Reactions: Allergies codeine [Codeine] Adverse Reaction (Verified 07/24/17 13:30) Penicillins Adverse Reaction (Verified 07/24/17 13:30) propoxyphene HCl [From Darvon] Adverse Reaction (Verified 07/24/17 13:30) Home Medications: Ambulatory Orders Alprazolam [Xanax] 1 mg PO BEDTIME 01/05/13 Atorvastatin Calcium [Lipitor] 10 mg PO BEDTIME 01/05/13 Hydrocodone/Acetaminophen [Hydrocodon-Acetaminophn 10-325] 1 each PO TID PRN Diltiazem HCl [Cardizem] 60 mg PO BID 12/04/15 Polyethylene Glycol 3350 [Miralax] 17 gm PO BEDTIME 12/04/15 Aspirin [Ecotrin] 81 mg PO DAILYWM 07/11/16 Sotalol HCl [Betapace] 40 mg PO BID 07/11/16 Cholecalciferol (Vitamin D3) [Vitamin D] 1,000 unit PO DAILY 09/12/16 Multivitamin 1 cap PO DAILY 09/12/16 Pantoprazole Sodium [Protonix] 40 mg PO DAILY 07/24/17 Prednisone 10 mg PO BIDWM #18 tablet 07/26/17 Disposition Discussed With: Patient
[2017-08-06] MEDS ORDERED: ROCEPHIN ONE (18:13)
[2017-08-06] MEDS: SODIUM CHLORIDE 1,000 ML IV SCH (18:21)
--- NOTE | 2017-08-06 18:22 | CT ---
EXAM: CT chest without contrast HISTORY: Cough, shortness of air, white blood cell count 61,000 COMPARISON: 07/24/2017 TECHNIQUE: CT chest performed without intravenous contrast. Coronal and sagittal reformatted images obtained. FINDINGS: Thyroid and thoracic inlet appear normal. Heart normal in size. No pericardial effusion. Ectasia ascending aorta measuring 3.8 cm. Extensive atherosclerosis. Coronary calcifications. Es ophagus unremarkable. Evaluation for lymphadenopathy limited without contrast. No lymphadenopathy i dentified. There is bilateral lower airway thickening and bilateral centrilobular nodularity suggest ing small airways inflammation/infection. Extensive ground-glass and nodular infiltrates in the left lower lobe and small portion of the left upper lobe consistent with pneumonia. Postsurgical changes o f right lobectomy with scarring. Several stable small pulmonary nodules. No pneumothorax. No pleura l effusion. Right-sided cardiac pacer. No acute abnormalities of the bones. Degenerate change in t he spine. Please refer to separate report CT abdomen pelvis regarding findings in the upper abdomen. IMPRESSION: 1. Left lower lobe and left upper lobe pneumonia, extensive in the left lower lobe. 2. Bilateral small airways inflammation/infection. 3. Postsurgical changes right lobectomy. Several small stable pulmonary nodules. CT chest follow-u p recommended 6 months for reevaluation. 4. Ectasia ascending aorta measuring up to 3.8 cm. Extensive atherosclerosis. Coronary calcificati ons.
--- NOTE | 2017-08-06 18:24 | CT ---
EXAM: CT abdomen pelvis without intravenous contrast 08/06/2017. Sagittal and coronal reformatted i mages obtained HISTORY: Abdominal pain COMPARISON: 04/04/2016 FINDINGS: The liver, gallbladder, adrenal glands and kidneys show no acute abnormality. The spleen and pancreas show no acute process. There is no bowel obstruction. Unremarkable urinary bladder. No free air or free fluid. Colonic diverticulosis without evidence of diverticulitis. No acute osseous abnormality. Severe atherosclerotic vascular disease. IMPRESSION: 1. Please refer to report of CT chest also performed 08/06/2017 for further evaluation 2. No urinary or bowel obstruction. 3. Diverticulosis without diverticulitis. 4. Severe atherosclerotic vascular disease. 5. No acute inflammatory process identified within the limitation of a noncontrast enhanced examinat ion.
[2017-08-06] MEDS ORDERED: XOPENEX 1.25 MG NEB PRN (19:26)
[2017-08-06] MEDS ORDERED: VANCOMYCIN ONE (19:48)
[2017-08-06] MEDS ORDERED: LIPITOR PO SCH (21:00)
[2017-08-06] MEDS ORDERED: XANAX PO SCH (21:00)
[2017-08-06] MEDS ORDERED: NON-FORMULARY MEDICATION (Alprazolam [Xanax] 1 MG) PO SCH (21:00)
[2017-08-06 21:10] VITALS: BMI 18.1
[2017-08-06] MEDS ORDERED: NICODERM 21 MG TD SCH (21:30)
[2017-08-06] MEDS ORDERED: CARDIZEM ONE (21:35)
[2017-08-06] MEDS ORDERED: NICODERM 21 MG TD ONE (21:36)
[2017-08-06] MEDS: SOLU-MEDROL 40 MG IVP SCH (21:38)
[2017-08-06] MEDS: LIPITOR PO SCH (21:38)
[2017-08-06] MEDS: LOVENOX SUBCUT SCH (21:38)
[2017-08-06] MEDS: BETAPACE PO SCH (21:39)
[2017-08-06] MEDS: CARDIZEM PO SCH (21:40)
[2017-08-07] MEDS: XOPENEX 1.25 MG NEB SCH ×4 (03:48→23:44)
[2017-08-07] MEDS: PROTONIX PO SCH (05:30)
[2017-08-07] MEDS: ROCEPHIN 1 GM in SODIUM CHLORIDE 50 ML IV SCH (10:40)
[2017-08-07] MEDS: LOVENOX SUBCUT SCH (10:40)
[2017-08-07] MEDS: BETAPACE PO SCH ×2 (10:42→20:43)
[2017-08-07] MEDS: CARDIZEM PO SCH ×2 (10:42→20:43)
[2017-08-07] MEDS: ASPIRIN EC PO SCH (10:42)
[2017-08-07] MEDS: SOLU-MEDROL 40 MG IVP SCH ×2 (10:43→20:43)
[2017-08-07] MEDS: SODIUM CHLORIDE 1,000 ML IV SCH (10:46)
--- NOTE | 2017-08-07 10:48 | HP ---
DATE OF SERVICE: 08/06/17 HISTORY OF PRESENT ILLNESS: This 82 year old WHITE/ M was hospitalized 08/06/17. The patient is hospitalized with acute respiratory failure. The patient had cough and congestion of several days duration. Blood gases showed p02 of 44 with pc02 42 , pH 7.55 on 2L. In the ER the patient was aggressively treated with nebs and steroids. Condition stabilizing and admitted to SCU. The patient has a history of cancer of lung with pneumonectomy on right side. He has continued to smoke. He has had several hospitalizations for acute bronchitis. This time on CT scan he shows pneumonia on left side. PAST MEDICAL HISTORY: CA of the lung Severe chronic lung disease Smoker Pacemaker Reflux disease Generalized anxiety disorder Dyslipidemia Generalized osteoarthritis Ventricular arrhythmias Diabetes mellitus Hypertension Chronic kidney disease PAST SURGICAL HISTORY: Right partial pneumonectomy REVIEW OF SYSTEMS: CONSTITUTIONAL: Positive for weakness and fatigue. No night sweats. No fever or chills. HEENT: Eyes: No visual changes. No eye pain. No eye discharge. ENT: No runny nose. No epistaxis. No sinus pain. No sore throat. No odynophagia. No ear pain. No nasal congestion. RESPIRATORY: Positive for cough and congestion. Positive for shortness of breath. No hemoptysis. CARDIOVASCULAR: Pleuritic type of pain on right side no PND, no orthopnea. No chest tightness like coronary insufficiency. No angina symptoms. No CHF symptoms. No atypical chest pain for CAD. No palpitations. No orthopnea. GASTROINTESTINAL: Poor appetite. No abdominal pain. No nausea or vomiting. No diarrhea or constipation. No hematemesis. No hematochezia. GENITOURINARY: No urgency. No frequency. No dysuria. No hematuria. No obstructive symptoms. No discharge. No pain. No significant abnormal bleeding. MUSCULOSKELETAL: Generalized aches and pains. NEUROLOGICAL: No headache. No neck pain. No syncope. No seizures. No dizziness. PSYCHIATRIC: Not anxious. No depression. No suicidal thoughts. No homicidal thoughts. SKIN: No rash. No lesions. No wounds. ENDOCRINE: No unexplained weight loss. No weight gain. HEMATOLOGIC/LYMPHATIC: No anemia. No purpura. No petechiae. No prolonged or excessive bleeding. No palpable lymph nodes. PERSONAL/FAMILY/SOCIAL HISTORY: The patient is , lives with . He is a heavy smoker. No alcohol abuse. He does all activities of daily living. He is retired. MEDICATIONS: (HOME) Lipitor 10 mg p.o. bedtime Xanax 1 mg p.o. bedtime Hydrocodone/Acetaminophen one each p.o. t.i.d. p.r.n. Cardizem 60 mg p.o. b.i.d. Miralax 17 gm p.o. bedtime Betapace 40 mg p.o. b.i.d. Ecotrin 81 mg p.o. daily with meal Multivitamin one cap p.o. daily Cholecalciferol 1,000 unit p.o. daily Protonix 40 mg p.o. daily Prednisone 10 mg p.o. b.i.d. with meal ALLERGIES: CODEINE, PENICILLINS, PROPOXYPHENE PHYSICAL EXAMINATION: GENERAL: The patient is awake, alert, oriented times three. VITAL SIGNS: Temperature 97.1, pulse 80, BP 113/63, respiratory rate 24. Oxygen saturation 87% on Venturi mask. HEENT: Head normocephalic, atraumatic. Eyes: Extraocular muscles are intact. Pupils are equal, round and reactive to light and accommodation. Ears: No lesions. Nose appeared normal. Throat: No exudate or erythema. Mucous membranes are dry. NECK: Supple. No JVD, no carotid bruit. No lymphadenopathy or thyromegaly. LUNGS: Decreased breath sounds with bilateral wheeze. Percussion note normal. Chest symmetrical. HEART: S1, S2, no S3. No murmurs. No cyanosis or clubbing. No ascites. Pulses: Dorsalis pedis and posterior tibial pulses +1 to +2 both sides. ABDOMEN: Soft. Nontender. Bowel sounds active. No CVA tenderness. No mass felt. EXTREMITIES: No edema. Full range of motion of all extremities, equal. NEUROLOGIC: No focal deficit. Cranial nerves II through XII are grossly intact. No headache, no double vision or headache. SKIN: Not dry. Intact. Turgor - normal. LYMPHATIC: No palpable lymph nodes/no lymphedema. MUSCULOSKELETAL: Normal joints with no swelling. Muscle tone is normal. LABS/X-RAYS/ABG'S: WBC 64.12, RBC 5.04, Hgb 14.1, Hct 43.0, MCV 85.3, MCH 28.0, MCHC 32.8, RDW Coeff of Shelby 14.1, platelet count 184. Neutrophils % (manual) 85.0, band neutrophils 5.0, lymphocytes % (manual) 4.0, Monocytes (manual) 4.0, Reactive lymphocytes 2.0, anisocytosis - not present. Chemistry: Sodium 141, potassium 4.8, chloride 99, carbon dioxide 32, anion gap 14.8, BUN 37, creatinine 1.62, Estimated GFR 41, BUN/Creatinine Ratio 23.83, glucose 222, lactic acid 21.2, calcium 10.4, total bilirubin 1.1, AST 17, ALT 15, alkaline phosphatase 86, total creatinine kinase 26, troponin I 0.0690, total protein 7.4, albumin 3.2, globulin 4.2, albumin/globulin ratio 0.76, procalcitonin 47.12. Chest CT without contrast revealed left lower lobe and left upper lobe pneumonia , extensive in the left lower lobe; bilateral small airways inflammation/ infection; postsurgical changes right lobectomy; several small stable pulmonary nodules; CT chest followup recommended 6 months for reevaluation; ectasia ascending aorta measuring up to 3.8 cm. Extensive atherosclerosis. Coronary calcifications. CT scan of abdomen and pelvis without contrast revealed No urinary or bowel obstruction; diverticulosis without diverticulitis; severe atherosclerotic vascular disease; no acute inflammatory process identified with the limitation of a noncontrast enhanced examination. ABGs 02 saturation 82.0, pH 7.504, pc02 42.1, p02 42.0, HC03 33.2, c02 34, base excess 10. Influenza A and B Rapid negative. ASSESSMENT: 1. Acute respiratory failure 2. Severe chronic lung disease with left-sided pneumonia 3. CA of lung with right partial pneumonectomy 4. Pacemaker 5. Chronic kidney disease 6. Hypertension PLAN: 1. Continue double antibiotics with Vancomycin 2. Continue Methylprednisolone 40 mg twice daily 3. Continue all medications 4. Monitor ABGs 5. ABGs repeated again and the patient was put on 50% Venti Mask with oxygen saturation 89 to 90%. 6. The patient was explained about the need to be transferred and taken care of by pulmonary physician and he declined. He wants to be taken care of at [facility]. CONDITION: Stabilizing. TIME SPENT: More than 70 minutes. [facility]
--- NOTE | 2017-08-07 11:24 | PCM.PROG ---
Attending Provider: ATTENDING PROVIDER: Dr. MILLIE RUSH DATE OF SERVICE: 08/07/17 SUBJECTIVE: This 82 year old WHITE/ M was hospitalized 08/06/17. The patient is hospitalized with acute respiratory failure. The patient's condition seems to have improved. The patient is resting at present time. No distress. Oxygen saturation is 98% with 50% Venti Mask, breathing is quiet, no wheezing heard. REVIEW OF SYSTEMS: CONSTITUTIONAL: Mild weakness. No night sweats. No fever or chills. HEENT: Eyes: No visual changes. No eye pain. No eye discharge. ENT: No runny nose. No epistaxis. No sinus pain. No odynophagia. No congestion. RESPIRATORY: Cough and congestion. No hemoptysis. Shortness of breath. No PND. CARDIOVASCULAR: No angina symptoms. No CHF symptoms. No atypical chest pain for CAD. No palpitations. No orthopnea.. GASTROINTESTINAL: Poor appetite. No abdominal pain. No nausea or vomiting. No diarrhea or constipation. No hematemesis. No hematochezia. GENITOURINARY: No urgency. No frequency. No dysuria. No hematuria. No obstructive symptoms. No discharge. No pain. No significant abnormal bleeding. MUSCULOSKELETAL: Generalized aches and pains. NEUROLOGICAL: Awake, alert, oriented to time, place and person. No headache. No neck pain. No syncope. No seizures. No dizziness. PSYCHIATRIC: Not anxious. No depression. No suicidal thoughts. No homicidal thoughts. SKIN: No rash. No lesions. No wounds. ENDOCRINE: No unexplained weight loss. No weight gain. HEMATOLOGIC/LYMPHATIC: No anemia. No purpura. No petechiae. No prolonged or excessive bleeding. No palpable lymph nodes. PHYSICAL EXAMINATION: GENERAL: The patient is awake, alert and oriented, lying in bed in no distress. VITAL SIGNS: Temperature 97.6 F, Pulse 78, Respiratory Rate 18, BP 101/56, Pulse Ox 98% HEENT: Head normocephalic, atraumatic. Eyes: Extraocular muscles are intact. Pupils are equal, round and reactive to light and accommodation. Ears: No lesions. Nose appeared normal. Throat: No exudate or erythema. Mucous membranes are dry. NECK: Supple. No JVD, no carotid bruit. No lymphadenopathy or thyromegaly. LUNGS: Decreased breath sounds with no wheeze heard. Percussion note normal. Chest symmetrical. HEART: S1, S2, no S3. No murmurs. No cyanosis or clubbing. No ascites. Pulses: Dorsalis pedis and posterior tibial pulses +1 to +2 both sides. ABDOMEN: Soft. Non-tender. Bowel sounds active. No CVA tenderness. No mass felt. EXTREMITIES: No edema. Full range of motion of all extremities, equal. NEUROLOGIC: No focal deficit. Cranial nerves II through XII are grossly intact. No headache, no double vision or headache. SKIN: Not dry. Intact. Turgor-normal. LYMPHATIC: No palpable lymph nodes/no lymphedema. MUSCULOSKELETAL: Normal joints with no swelling. Muscle tone is normal. LAB REVIEW: 08/07/17 00:35 08/07/17 00:35 08/07/17 00:35: Sodium 144, Potassium 4.9, Chloride 101, Carbon Dioxide 33 H, Anion Gap 14.9, BUN 38 H, Creatinine 1.56 H, Estimated GFR (MDRD) 43.00, BUN/ Creatinine Ratio 24.35, Glucose 237 H, Calcium 9.4, Total Bilirubin 0.5, AST 14 L, ALT 13, Alkaline Phosphatase 68, Total Protein 6.3, Albumin 2.7 L, Globulin 3.6, Albumin/Globulin Ratio 0.75 08/07/17 00:35: WBC 47.32 H D, RBC 4.46 L, Hgb 12.6 L, Hct 38.2 L, MCV 85.7, MCH 28.3, MCHC 33.0, RDW Coeff of Shelby 14.0, Plt Count 165, Neutrophils % (Manual ) 93.0 H, Lymphocytes % (Manual) 7.0 L, Anisocytosis Not present 08/07/17 00:35: Total Creatine Kinase 19, Troponin I 0.0440 ASSESSMENT: 1. Acute respiratory failure 2. Left-sided pneumonia 3. CA of lung with right pneumonectomy, partial 4. Smoker 5. Leukemoid reaction with high WBC count 6. CKD 7. Pacemaker PLAN: 1. ABGs on room air 2. Oxygen at 3L 3. Daily CBC and CMP Of note: I saw the patient in ER. Dr. Schaefer had taken over for Dr. Starks at the time. Bed was arranged in Special Care Unit. Condition stable for now. Prognosis poor. Plan and coordination of the patient's care discussed in the presence of [employer] Engineer and nurse. SCRIBED BY: RAHUL PALACIOS [employer] scribed while in presence of service performed by Dr. MILLIE RUSH on 08/07/17 ([id number])
--- NOTE | 2017-08-07 14:21 | DI ---
EXAM: Single view of the chest. History: Short of breath, follow-up Comparison: Chest radiograph 07/25/2017, chest CT 08/06/2017 Findings: Heart size is stable. Atherosclerotic vascular calcifications. Chronic interstitial llanos ges with stable right lung scarring. The more acute infiltrate within the left lower lung is stable to slightly improved. No pneumothorax. No acute osseous abnormalities. Impression: Left lower lobe pneumonia is stable to slightly improved.
[2017-08-07] MEDS ORDERED: NORCO 10-325 PO PRN (16:56)
[2017-08-07] MEDS ORDERED: XANAX PO STA (18:26)
[2017-08-07] MEDS: LIPITOR PO SCH (20:43)
[2017-08-07] MEDS: HUMULIN R SUBCUT PRN (20:44)
[2017-08-07] MEDS ORDERED: NICODERM 21 MG TD SCH (21:00)
[2017-08-08] MEDS: SODIUM CHLORIDE 1,000 ML IV SCH (01:21)
[2017-08-08 02:58] VITALS: TEMP 97.4
[2017-08-08] MEDS: XOPENEX 1.25 MG NEB SCH ×2 (03:44→11:49)
[2017-08-08 04:58] VITALS: BP 116/63
[2017-08-08] MEDS: PROTONIX PO SCH (05:50)
[2017-08-08] MEDS: HUMULIN R SUBCUT PRN ×2 (05:50→11:51)
[2017-08-08] MEDS: LOVENOX SUBCUT SCH (09:34)
[2017-08-08] MEDS: ASPIRIN EC PO SCH (09:37)
[2017-08-08] MEDS: CARDIZEM PO SCH (09:37)
[2017-08-08] MEDS: BETAPACE PO SCH (09:37)
[2017-08-08] MEDS: ROCEPHIN 1 GM in SODIUM CHLORIDE 50 ML IV SCH (09:38)
--- NOTE | 2017-08-08 09:39 | CM.DICTOOL ---
ADMISSION: 08/06/17 19:59 DISCHARGE: 08/08/17 FINAL DIAGNOSIS Acute and chronic respiratory failure (Acute) Shortness of breath (Acute) HISTORY OF: HTN COPD DM TYPE 2 DYSLIPIDEMIA AMI RIGHT PNEUMONECTOMY DATE UNKNOWN ANEMIA CATARACT SURGERY LEFT 95, RIGHT 96 STROKE 2014 AFIB BPH BLADDER TUMOR REMOVED DATE UNKNOWN APPENDECTOMY DATE UNKNOWN PACEMAKER 2005 LAST VITALS Temp Pulse Resp BP Pulse Ox 97.4 F L 63 20 116/63 90 L 08/08/17 04:57 08/08/17 04:57 08/08/17 04:57 08/08/17 04:57 08/08/17 04:57 ACTIVE HOME MEDICATIONS Acetaminophen/Hydrocodone Bitart ([place] 10-325) 1 tab PO TID PRN PRN Reason: Moderate to severe Pain Last Admin: 08/07/17 17:37 Dose: 1 tab Alprazolam (Xanax) 1 mg PO BEDTIME [facility] Last Admin: 08/06/17 21:39 Dose: 1 mg Aspirin (Aspirin Ec) 81 mg PO DAILYWM [facility] Last Admin: 08/07/17 10:42 Dose: 81 mg Atorvastatin Calcium (Lipitor) 10 mg PO BEDTIME [facility] Last Admin: 08/07/17 20:43 Dose: 10 mg Diltiazem HCl (Cardizem) 60 mg PO BID [facility] Last Admin: 08/07/17 20:43 Dose: 60 mg Pantoprazole Sodium (Protonix) 40 mg PO QDAC [facility] Last Admin: 08/08/17 05:50 Dose: 40 mg Sotalol HCl (Betapace) 40 mg PO BID [facility] Last Admin: 08/07/17 20:43 Dose: 40 mg MIRALAX 17GM AT BEDTIME VITAMIN D 1000INITS DAILY ALLERGIES codeine [Codeine] Adverse Reaction (Verified 07/24/17 13:30) Penicillins Adverse Reaction (Verified 07/24/17 13:30) propoxyphene HCl [From Darvon] Adverse Reaction (Verified 07/24/17 13:30) NEW PRESCRIPTIONS: NEW MEDICATIONS: 1. KEFLEX 500MG TAKE 1 CAPSULE 3 TIMES A DAY FOR 5 DAYS 2. PREDNISONE 10MG TAKE 1 TABLET 2 TIMES A DAY FOR 5 DAYS SMOKING: STOP SMOKING AND AVOID SECOND HAND SMOKE DISEASE SPECIFIC EDUCATION: COPD RESPIRATORY FAILURE MEDICATIONS STEROID THERAPY SMOKING CESSATION AVOID EXTREME COLD AND CROWDS LAB REVIEW: 08/08/17 04:30 08/08/17 04:30 08/08/17 08:40: Puncture Site R rad, O2 Saturation 92.0 L, ABG pH 7.425, ABG pCO2 37.9, ABG pO2 63.0 L, ABG HCO3 24.9, ABG Total CO2 26, ABG Base Excess 1, Nima Test +, FiO2 % 21.0 08/08/17 04:30: Sodium 140, Potassium 4.0, Chloride 104, Carbon Dioxide 28, Anion Gap 12.0, BUN 45 H, Creatinine 1.28 H, Estimated GFR (MDRD) 54.00, BUN/ Creatinine Ratio 35.15, Glucose 244 H, Calcium 9.3, Total Bilirubin 0.6, AST 13 L, ALT 9 L, Alkaline Phosphatase 70, Total Protein 6.4, Albumin 2.7 L, Globulin 3.7, Albumin/Globulin Ratio 0.73 08/08/17 04:30: WBC 24.10 H D, RBC 4.29 L, Hgb 12.0 L, Hct 37.1 L, MCV 86.5, MCH 28.0, MCHC 32.3, RDW Coeff of [place] 14.2, Plt Count 159, Immature Gran % (Auto ) 1.9, Neut % (Auto) 91.9, Lymph % (Auto) 3.5 L, [place] % (Auto) 2.6, Eos % (Auto ) 0.0, Baso % (Auto) 0.1, Immature Gran # (Auto) 0.5, Neut # 22.1 H, Lymph # 0.8 , [place] # 0.6, Eos # 0.0, Baso # 0.0 08/07/17 10:40: Puncture Site R rad, O2 Saturation 83.0 L, ABG pH 7.432, ABG pCO2 43.9, ABG pO2 46.0 L*, ABG HCO3 29.2 H, ABG Total CO2 31 H, ABG Base Excess 5 H, Nima Test +, FiO2 % 21.0 08/07/17 09:00: Total Creatine Kinase 20, Troponin I 0.0310 PLAN: YOU ARE LEAVING AGAINST THE ADVICE OF YOUR PHYSICIAN CONTINUE YOUR HOME MEDICATIONS PER NURSING SHEET NEW MEDICATIONS: 1. KEFLEX 500MG TAKE 1 CAPSULE 3 TIMES A DAY FOR 5 DAYS. TAKE UNTIL ALL GONE 2. PREDNISONE 10MG TAKE 1 TABLET 2 TIMES A DAY FOR 5 DAYS. TAKE WITH FOOD. REGULAR DIET ACTIVITY TOLERATED. AVOID EXTREME COLD AND CROWDS. FOLLOW UP WITH DR. RUSH TOMORROW. CALL FOR APPOINTMENT [phone]. SITTING ON SIDE OF BED. ALERT AND ORIENTED X 4. DR. RUSH INTO SEE PATIENT. PATIENT WANTS TO GO HOME. DR. RUSH INFORMED PATIENT HE NEEDS TO STAY IN THE HOSPITAL FOR FURTHER TREATMENT BUT HE HAS THE OPTION TO SIGN AMA. PATIENT STATES HE WILL SIGN AMA. DID CONVINCE PATIENT TO STAY FOR CHEST X-RAY, ABG'S AND ABX THIS AM. DR. RUSH DID GIVE RX FOR ABX AND STEROIDS. O2 IS OFF AT THIS TIME. CHECKED PULSE OX AND IT WSA 92%. APPETITE IS FAIR. VITAL SIGNS ARE STABLE. HAS BEEN AFEBRILE. POX 92% ON 2L/C. HEART TONES ARE REGULAR WITH TELEMETRY REVEALING AV PACED. LUNGS WITH WHEEZES. BREATH SOUNDS ARE COARSE AND DIMINISHED. HAS NON-PRODUCTIVE COUGH. DYSPNEA NOTED. ABDOMEN IS SOFT, NON- TENDER WITH BOWEL SOUNDS POSITIVE IN ALL 4 QUADS. PEDAL PULSES POSITIVE WITHOUT EDEMA. HAS IV OF NORMAL SALINE AT 75ML/HR IN RIGHT FOREARM SITE IS CLEAR. DID RATE FALL RISK BUT PATIENT REFUSED AND SIGNED FALL RISK RELEASE. IS A STAND BY ASSIST. DR. MILLIE RUSH MD Sheree RYAN APRN
--- NOTE | 2017-08-08 10:35 | PCM.PROG ---
Attending Provider: ATTENDING PROVIDER: Dr. MILLIE RUSH DATE OF SERVICE: 08/08/17 SUBJECTIVE: This 82 year old WHITE/ M was hospitalized 08/06/17. The patient is hospitalized with acute respiratory failure. The patient's condition has improved remarkably. Oxygen saturation is 92% on room air, is talking better. Oximetry on room air is 91. He is feeling much better. REVIEW OF SYSTEMS: CONSTITUTIONAL: No night sweats. No fatigue, malaise, lethargy. No fever or chills. HEENT: Eyes: No visual changes. No eye pain. No eye discharge. ENT: No runny nose. No epistaxis. No sinus pain. No odynophagia. No congestion. RESPIRATORY: Mild cough, no congestion. No hemoptysis. No shortness of breath. No PND. CARDIOVASCULAR: No angina symptoms. No CHF symptoms. No atypical chest pain for CAD. No palpitations. No orthopnea.. GASTROINTESTINAL: Appetite improved. No abdominal pain. No nausea or vomiting. No diarrhea or constipation. No hematemesis. No hematochezia. GENITOURINARY: No urgency. No frequency. No dysuria. No hematuria. No obstructive symptoms. No discharge. No pain. No significant abnormal bleeding. MUSCULOSKELETAL: No musculoskeletal pain; no joint swelling. NEUROLOGICAL: Awake, alert, oriented to time, place and person. No headache. No neck pain. No syncope. No seizures. No dizziness. PSYCHIATRIC: Not anxious. No depression. No suicidal thoughts. No homicidal thoughts. SKIN: No rash. No lesions. No wounds. ENDOCRINE: No unexplained weight loss. No weight gain. HEMATOLOGIC/LYMPHATIC: No anemia. No purpura. No petechiae. No prolonged or excessive bleeding. No palpable lymph nodes. PHYSICAL EXAMINATION: GENERAL: The patient is awake, alert and oriented, lying/sitting in bed in no distress. VITAL SIGNS: Temperature 97.4 F, Pulse 63, Respiratory Rate 20, BP 116/63, Pulse Ox 90% HEENT: Head normocephalic, atraumatic. Eyes: Extraocular muscles are intact. Pupils are equal, round and reactive to light and accommodation. Ears: No lesions. Nose appeared normal. Throat: No exudate or erythema. NECK: Supple. No JVD, no carotid bruit. No lymphadenopathy or thyromegaly. LUNGS: Decreased breath sounds. Clear with practically no wheeze, good air entry. Percussion note normal. Chest symmetrical. HEART: S1, S2, no S3. No murmurs. No cyanosis or clubbing. No ascites. Pulses: Dorsalis pedis and posterior tibial pulses +1 to +2 both sides. ABDOMEN: Soft. Non-tender. Bowel sounds active. No CVA tenderness. No mass felt. EXTREMITIES: No edema. Full range of motion of all extremities, equal. NEUROLOGIC: The patient is awake, alert, oriented times three. No focal deficit. Cranial nerves II through XII are grossly intact. No headache, no double vision or headache. SKIN: Not dry. Intact. Turgor-normal. LYMPHATIC: No palpable lymph nodes/no lymphedema. MUSCULOSKELETAL: Normal joints with no swelling. Muscle tone is normal. LAB REVIEW: 08/08/17 04:30 08/08/17 04:30 08/08/17 04:30: Sodium 140, Potassium 4.0, Chloride 104, Carbon Dioxide 28, Anion Gap 12.0, BUN 45 H, Creatinine 1.28 H, Estimated GFR (MDRD) 54.00, BUN/ Creatinine Ratio 35.15, Glucose 244 H, Calcium 9.3, Total Bilirubin 0.6, AST 13 L, ALT 9 L, Alkaline Phosphatase 70, Total Protein 6.4, Albumin 2.7 L, Globulin 3.7, Albumin/Globulin Ratio 0.73 08/08/17 04:30: WBC 24.10 H D, RBC 4.29 L, Hgb 12.0 L, Hct 37.1 L, MCV 86.5, MCH 28.0, MCHC 32.3, RDW Coeff of [place] 14.2, Plt Count 159, Immature Gran % (Auto ) 1.9, Neut % (Auto) 91.9, Lymph % (Auto) 3.5 L, [place] % (Auto) 2.6, Eos % (Auto ) 0.0, Baso % (Auto) 0.1, Immature Gran # (Auto) 0.5, Neut # 22.1 H, Lymph # 0.8 , [place] # 0.6, Eos # 0.0, Baso # 0.0 08/07/17 10:40: Puncture Site R rad, O2 Saturation 83.0 L, ABG pH 7.432, ABG pCO2 43.9, ABG pO2 46.0 L*, ABG HCO3 29.2 H, ABG Total CO2 31 H, ABG Base Excess 5 H, Nima Test +, FiO2 % 21.0 08/07/17 09:00: Total Creatine Kinase 20, Troponin I 0.0310 ASSESSMENT: 1. Pneumonia/acute respiratory failure improved remarkably. PLAN: 1. Keflex 500 mg t.i.d. 2. Prednisone 10 mg b.i.d. for 5 days 3. Chest x-ray 4. ABG 5. Advised to see me in the morning for followup The patient wants to smoke and he will sign out AMA will give Keflex and Prednisone to go home with but strongly encouraged him to stay in hospiotal. He knows the consequences of not following advice; in fact, his said to let him go AMA otherwise he would drive everyone crazy and make a scene. Plan and coordination of the patient's care discussed in the presence of Pathology Specialist and nurse. CONDITION: Stable. Prognosis is poor. SCRIBED BY: RAHUL PALACIOS Forensic Pathologist scribed while in presence of service performed by Dr. MILLIE RUSH on 08/08/17 ([id number])
--- NOTE | 2017-08-08 10:56 | DI ---
EXAM: Two views of the chest. History: Respiratory failure. Comparison: Chest radiograph 08/07/2017 Findings: Heart size is stable. Atherosclerotic vascular calcifications. Chronic interstitial llanos ges and scarring again seen within the right lung. Persistent but improving left lower lobe pneumoni a. No pneumothorax. No developing opacities. No acute osseous abnormalities. Pacer device again s een in place. Impression: Persistent but improving left lower lobe pneumonia.
--- NOTE | 2017-08-13 08:38 | AMA ---
FINAL DIAGNOSIS: 1. Acute respiratory failure 2. Pneumonia involving left lung 3. 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 Severe chronic lung disease with continued smoking 5. Diabetes Mellitus 6. Chronic anemia 7. Chronic kidney disease 8. Pacemaker 9. Noncompliance HISTORY: The patient signed out against medical advise but the patient was given Keflex and Prednisone at the time of discharge. The patient's arterial blood gasses showed remarkable improvement with oxygen saturation more than 90% on room air. Also the chest x-ray showed persistent infiltrate with some improvement. LABS: WBC was 24,000 with hgb was 12, hct 37, creatinine 1.2, BUN 45. On admission the patient's pO2 was 42, pCO2 42, pH 7.50 with 82% saturation on 5 liters. On the day of discharge 08/08/17 the patient's ABG showed pO2 63, pCO2 37, pH 7.42 with 92% saturation with 24 Co3 on room air remarkably improvement. HOSPITAL COURSE: 82 year old year old white male hospitalized with acute respiratory failure with severe hypoxemia with pO2 44 even on 4 liters with oxygen saturation 82-84% . The patient was given NEBS treatments, steroids and antibiotics. The patient' s condition improved. The patient was on Rocephin and Vancomycin with steroids. At the time when he signed out the patient was afebrile, his appetite, his hydration status had improved and kidney function improved. His WBC count on admission was 60,000 which down to 24,000. The patient has lupoid reaction that his usual response to infections and steroid treatment CONDITION: Stable but he was advised to stay a couple of more days, he declined his main reason for signing out was because he was not allowed to smoke because of hospital policy. JORGE
--- NOTE | 2017-08-13 08:39 | PN ---
08/06/17: Level 5 08/07/17: Extensive 08/08/17: D as discharge MTDD
== END 2017-08-08 12:05 | disposition left against medical advice (07) | DRG 189 ==
LOC: ED 15:41 → MEDSURG B 18:08 → UNDOADMIN 18:08 → SCU 18:08
PROVIDERS: ADMIT Internal Medicine; ATTEND Internal Medicine
DX: J96.21 Acute and chronic respiratory failure with hypoxia (principal); J18.1 Lobar pneumonia, unspecified organism; J96.22 Acute and chronic respiratory failure with hypercapnia; J44.9 Chronic obstructive pulmonary disease, unspecified; R07.81 Pleurodynia; N18.9 Chronic kidney disease, unspecified; E11.9 Type 2 diabetes mellitus without complications; D50.0 Iron deficiency anemia secondary to blood loss (chronic); I25.2 Old myocardial infarction; F17.200 Nicotine dependence, unspecified, uncomplicated; Z91.19 Patient's noncompliance with other medical treatment and regimen; R05 Cough; Z85.118 Personal history of other malignant neoplasm of bronchus and lung; Z95.0 Presence of cardiac pacemaker; Z90.2 Acquired absence of lung [part of]; Z99.81 Dependence on supplemental oxygen; Z79.899 Other long term (current) drug therapy
CPT/HCPCS: 36415; 80053; 82550; 82803; 82962; 83605; 84145; 84484; 85007; 85025; 87040; 87081; 87502; 87651; 93005; 93010; 94640; 96365; 99284

== ENCOUNTER 2017-09-25 14:29 | Outpatient (CLI) | payer OTHER ==
[2013-01-07 12:39] VITALS: TEMP 96.7
--- NOTE | 2017-09-25 15:27 | DI ---
EXAM: Right shoulder three views HISTORY: Shoulder pain. FINDINGS: Compared to 11/13/2016. Glenohumeral joint is within normal limits. There is moderate ost eoarthritis of the AC joint including superior bony spurring. There is no joint separation or disloc ation. No acute fracture is seen. Right-sided pacemaker unit noted. IMPRESSION: Osteoarthritis of the AC joint.
--- NOTE | 2017-09-25 15:34 | DI ---
Exam: Four x-rays of the cervical spine. Comparison: CT cervical spine performed 12/19/2014. Reason for exam: Radiculopathy. FINDINGS: Evaluation of by summation artifact. No obvious vertebral body height loss is seen within the imaged portions of the cervical spine. Imaging is obtained from the C2 to the C6 vertebral body . The vertebral body heights appear well maintained. There is intervertebral body disc space height loss with osteophyte formation. The prevertebral soft tissues are within normal limits. The dens i s not well evaluated on the open-mouth odontoid view. Impression: 1. No obvious fracture or listhesis in the cervical spine. 2. Multilevel degenerative disease with intervertebral body disc space height loss and osteophyte fo rmation and clinical concern exists for radiculopathy or myelopathy, MRI may be performed for further characterization.
== END 2017-09-25 14:30 | disposition home or self-care (01) ==
LOC: RAD 14:29
PROVIDERS: ATTEND Internal Medicine
DX: M25.511 Pain in right shoulder (principal); M54.12 Radiculopathy, cervical region

== ENCOUNTER 2018-01-27 11:33 | Outpatient (CLI) ==
[2013-01-07 12:39] VITALS: TEMP 96.7
== END 2018-01-27 11:54 | disposition short-term general hospital (02) ==
LOC: AMBL 11:33
PROVIDERS: ATTEND Family Medicine
DX: R06.02 Shortness of breath (principal); R07.81 Pleurodynia; R53.1 Weakness; R09.89 Other specified symptoms and signs involving the circulatory and respiratory systems; J44.9 Chronic obstructive pulmonary disease, unspecified; W19.XXXA Unspecified fall, initial encounter; Z85.118 Personal history of other malignant neoplasm of bronchus and lung

== ENCOUNTER 2018-05-17 23:30 | Emergency (ER) | payer OTHER ==
[2018-05-17] MEDS ORDERED: PROTONIX IV IVP STA (23:49)
[2018-05-17] MEDS ORDERED: GLUCAGEN IVP STA (23:50)
[2018-05-17 23:52] VITALS: BMI 18.4
--- NOTE | 2018-05-17 23:58 | ED.PDOC ---
General ED Provider: Dr. ANIBAL ORTIZ-ER Chief Complaint: Chest Pain Stated Complaint: migdalia been vomiting since 6:30 tonight--i ate hot dogs and tater tots and i have pressure--it feels like its stuck Time Seen by Physician: 23:40 Mode of Arrival: Wheelchair Information Source: Patient Exam Limitations: No limitations Primary Care Provider: MILLIE ORTIZ Nursing and Triage Documentation Reviewed and Agree: Yes Does patient meet sepsis criteria?: No System Inflammatory Response Syndrome: Not Applicable Sepsis Protocol: For patient's 13 years and over: Temp is 96.8 and below OR 101 and greater Pulse >90 BPM Resp >20/minute Acutely Altered Mental Status Are patient's symptoms suggestive of a new infection, such as: -Pneumonia -Skin, Soft Tissue -Endocarditis -UTI -Bone, Joint Infection -Implantable Device -Acute Abdominal Infection -Wound Infection -Meningitis -Blood Stream Catheter Infection -Unknown GI Complaint Exam - Abdominal Pain Complaint/Exam Onset: Gradual Duration: 6 hrs Symptoms Are: Still present Timing: Constant Initial Severity: Mild Current Severity: Mild Location of Pain: Discrete, Epigastric Character: Reports: Dull, Aching, Cramping Aggravating: Reports: None Alleviating: Reports: Vomiting Associated Signs and Symptoms: Reports: Nausea, Vomiting Differential Diagnoses: Bowel Obstruction, Other (food bolus) Quality Indicator For Non-Traumatic Chest Pain/Syncope: EKG Performed Review of Systems - Review Of Systems Constitutional: Reports: No symptoms Eyes: Reports: No symptoms Ears, Nose, Mouth, Throat: Reports: No symptoms Respiratory: Reports: No symptoms Cardiac: Reports: No symptoms GI: Reports: Abdominal pain, Nausea, Vomiting : Reports: No symptoms Musculoskeletal: Reports: No symptoms Skin: Reports: No symptoms Neurological: Reports: No symptoms Endocrine: Reports: No symptoms Hematologic/Lymphatic: Reports: No symptoms All Other Systems: Reviewed and Negative Past Medical History - Past Medical History Previously Healthy: No Endocrine: Reports: DM 2, Dyslipidemia Cardiovascular: Reports: [place], Hypertension, Other (enlarged heart) Respiratory: Reports: COPD, Pneumonia, Other (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) Hematological: Reports: Anemia Gastrointestinal: Reports: None Genitourinary: Reports: None Neuro/Psych: Reports: None Musculoskeletal: Reports: None Cancer: Reports: Lung, Other (bladder tumor) Other Pertinent Past Medical History: 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 - Surgical History General Surgical History: Reports: Appendectomy, Pacemaker, Other (partial pneumonectomy right upper lobe-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) - Family History Family History: Reports: Cancer (sisters brothers mother all with due to brain tumors"mine skipped my head and got my lung") - Social History Smoking Status: Current every day smoker, Heavy tobacco smoker Hx Substance Use: No Alcohol Screening: Occasionally - Immunizations Tetanus Shot up to Date: No (unsure) Physical Exam - Physical Exam Appearance: Well-appearing, No pain distress, Well-nourished Pain Distress: Mild Eyes: ROBERTO, EOMI, Conjunctiva clear ENT: Ears normal, Nose normal, Oropharynx normal Neck: Supple Respiratory: Airway patent, Breath sounds clear, Breath sounds equal, Respirations nonlabored Cardiovascular: RRR GI/: Soft, Bowel sounds normal, No Organomegaly, Tender Musculoskeletal: Normal strength, ROM intact, No edema, No calf tenderness Skin: Warm, Dry, Normal color Neurological: Sensation intact, Motor intact, Reflexes intact, Cranial nerves intact, Alert, Oriented Psychiatric: Affect appropriate, Mood appropriate Interpretation - EKG Interpretation Time of EKG #1: 23:58 Rate: Normal Rhythm: Other Ectopy: None [place]: NL ST Segment: Normal Interpretation: paced rythym Physician Notification - Case Discussed Physician Notified: dr ortiz and dr york accepted Time of Notification: 00:18 Critical Care Note - Critical Care Note Total Time (mins): 30 Course - Course Hematology/Chemistry: 05/17/18 23:50 05/17/18 23:50 Orders, Labs, Meds: Lab Review 05/17/18 05/17/18 23:50 23:50 WBC 11.21 H RBC 4.50 L Hgb 12.8 L Hct 38.4 L MCV 85.3 MCH 28.4 MCHC 33.3 RDW Coeff of [place] 13.5 Plt Count 153 Immature Gran % (Auto) 0.4 Neut % (Auto) 63.4 Lymph % (Auto) 27.6 Boyd % (Auto) 7.4 Eos % (Auto) 0.6 Baso % (Auto) 0.6 Immature Gran # (Auto) 0.0 Neut # (Auto) 7.1 H Lymph # (Auto) 3.1 Boyd # (Auto) 0.8 Eos # (Auto) 0.1 Baso # (Auto) 0.1 Sodium 137.1 Potassium 4.12 Chloride 100.6 Carbon Dioxide 32.0 H Anion Gap 8.62 BUN 23.2 H Creatinine 1.27 H Estimated GFR (MDRD) 54.00 BUN/Creatinine Ratio 18.26 Glucose 128.5 H Calcium 9.63 Total Bilirubin 0.88 AST 38.0 ALT 13.8 Alkaline Phosphatase 56.2 Total Creatine Kinase 29.8 L Troponin I Pending Total Protein 6.74 Albumin 4.11 Globulin 2.63 Albumin/Globulin Ratio 1.56 Amylase 62.1 Lipase 30.2 Orders Category Date Time Status EKG-(ED ONLY) Stat CARDIO 05/17/18 23:35 Completed Police Justice [ED HEARTH FEEDER APPLIED] .ONCE EMERGENCY 05/17/18 23:36 Active IV [ED IV/MEDIPORT/POWERPORT] .ONCE EMERGENCY 05/17/18 23:49 Active AMYLASE Stat LAB 05/17/18 23:50 Results CBC W/ AUTO DIFF Stat LAB 05/17/18 23:50 Completed COMPREHENSIVE METABOLIC PANEL Stat LAB 05/17/18 23:50 Results CREATINE KINASE Stat LAB 05/17/18 23:50 Results LIPASE Stat LAB 05/17/18 23:50 Results TROPONIN I Stat LAB 05/17/18 23:50 Results 0.9 % Sodium Chloride [Saline Flush] MEDS 05/17/18 23:49 Ordered 1 syr IVF PRN PRN Glucagon,Human Recombinant [Glucagen] MEDS 05/17/18 23:50 Discontinued 1 mg IVP ONCE STA Pantoprazole Sodium [Protonix IV] MEDS 05/17/18 23:49 Discontinued 40 mg IVP ONCE STA CXR [CHEST, 1V AP ONLY] Stat RADS 05/17/18 23:49 Ordered Medications Generic Name Dose Route Start Last Admin Trade Name Freq PRN Reason Stop Dose Admin Sodium Chloride 1 syr 05/17/18 23:49 Saline Flush IVF PRN PRN To flush IV Discontinued Medications Generic Name Dose Route Start Last Admin Trade Name Freq PRN Reason Stop Dose Admin Glucagon 1 mg 05/17/18 23:50 05/18/18 00:04 Glucagen IVP 05/17/18 23:51 1 mg ONCE STA Administration Pantoprazole Sodium 40 mg 05/17/18 23:49 05/18/18 00:04 Protonix Iv IVP 05/17/18 23:50 40 mg ONCE STA Administration Vital Signs: Temp Pulse Resp BP Pulse Ox 05/17/18 23:35 98.4 F 74 20 112/53 L 96 Departure - Departure Time of Disposition: 00:19 Disposition: TSF SHORT-TRM HOSP Discharge Problem: Esophageal foreign body Qualifiers: Encounter type: initial encounter Qualified Code(s): T18.108A - Unspecified foreign body in esophagus causing other injury, initial encounter Instructions: Esophageal Foreign Body (ED) Condition: Fair Pt referred to PMD for follow-up: Yes IPMP verified?: No Allergies/Adverse Reactions: Allergies codeine [Codeine] Adverse Reaction (Verified 05/17/18 23:45) Penicillins Adverse Reaction (Verified 05/17/18 23:45) propoxyphene HCl [From Darvon] Adverse Reaction (Verified 05/17/18 23:45) Home Medications: Ambulatory Orders Alprazolam [Xanax] 1 mg PO BEDTIME 01/05/13 Atorvastatin Calcium [Lipitor] 20 mg PO BEDTIME 01/05/13 Hydrocodone/Acetaminophen [Hydrocodon-Acetaminophn 10-325] 10 - 325 mg PO TID PRN 12/19/14 Polyethylene Glycol 3350 [Miralax] 17 gm PO BEDTIME 12/04/15 Aspirin [Ecotrin] 81 mg PO DAILYWM 07/11/16 Sotalol HCl [Betapace] 40 mg PO BID 07/11/16 Cholecalciferol (Vitamin D3) [Vitamin D] 1,000 unit PO DAILY 09/12/16 Multivitamin 1 cap PO DAILY 09/12/16 Alprazolam [Xanax] 0.5 mg PO DAILY PRN 05/17/18 Cyclobenzaprine HCl [Flexeril] 10 mg PO DAILY PRN 05/17/18 Transfer Form Completed: Yes Disposition Discussed With: Patient, Family
[2018-05-18] MEDS ORDERED: ATIVAN IVP STA (00:36)
[2018-05-18] MEDS ORDERED: ATIVAN ONE (00:38)
--- NOTE | 2018-05-18 01:18 | DI ---
EXAM: Portable chest HISTORY: Chest pain COMPARISON: Two-view chest 08/08/2017 FINDINGS: / impression Both apices are excluded from view. The heart is normal in size.. There is right-sided volume loss with elevation of the right hemidiaphragm which appears mildly tented . Stabl e right-sided pacemaker leads are noted.. There is atelectasis and/or developing infiltrate at the le ft lung base
[2018-05-18 03:12] VITALS: BP 120/76; TEMP 97.9
== END 2018-05-18 03:12 | disposition short-term general hospital (02) ==
LOC: ED 23:30 → SCU 05-18 00:45 → UNDOADMOB 05-18 00:45 → ED 05-18 03:12
DX: T18.108A Unspecified foreign body in esophagus causing other injury, initial encounter (principal); R11.2 Nausea with vomiting, unspecified; E11.9 Type 2 diabetes mellitus without complications; E78.5 Hyperlipidemia, unspecified; I25.2 Old myocardial infarction; I10 Essential (primary) hypertension; D64.9 Anemia, unspecified; F17.210 Nicotine dependence, cigarettes, uncomplicated; Z95.0 Presence of cardiac pacemaker; Z85.118 Personal history of other malignant neoplasm of bronchus and lung; Z79.899 Other long term (current) drug therapy; R10.13 Epigastric pain; R07.9 Chest pain, unspecified
CPT/HCPCS: 36415; 80053; 82150; 82550; 83690; 84484; 85025; 93005; 93010; 96374; 96375; 99285

== ENCOUNTER 2018-05-31 09:10 | Outpatient (CLI) ==
[2013-01-07 12:39] VITALS: TEMP 96.7
--- NOTE | 2018-05-31 10:32 | CT ---
EXAM: CT of the head without contrast History: Confusion and dizziness. Comparison: Head CT 12/19/2014 Technique: Multiplanar CT images through the head were obtained without the administration of IV con trast Findings: The visualized paranasal sinuses and mastoid air cells are clear in general. No acute [place] varial abnormalities. Intracranially there are atherosclerotic vascular calcifications. Stable atrophy. No dominant mass or midline shift. No hydrocephalous. No acute intracranial hemorrhage or abnormal extraaxial fluid collections. 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 Impression: No acute intracranial process. Stable chronic brain changes. No change compared to the prior study
--- NOTE | 2018-05-31 10:56 | US ---
EXAM: Bilateral carotid artery Doppler History: Confusion and dizziness. Comparison: Carotid Doppler 07/29/2014 Technique: Multiple sonographic images through the bilateral internal carotid arteries were obtained . Color duplex Doppler was used to interrogate vascular flow. Findings: The right ICA peak systolic velocity is moderately elevated measuring 1.6 meters per second. The rig ht ICA/cca PSV ratio is moderately increased at 2.8. The right vertebral artery is patent and demons trates antegrade flow. [place] scale images demonstrate moderate heterogeneous plaque buildup within th e right internal carotid artery. This is similar to the prior study. The left ICA peak systolic velocity is within normal limits measuring 1.0 m/sec. The left ICA/cca PSV ratio is normal at 1.6. The left vertebral artery is patent and demonstrates antegrade flow. [place] scale images demonstrate mild to moderate plaque buildup within the left internal carotid artery omar lar to the prior study. Impression: 1. 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 2. No significant hemodynamic stenosis of the left internal carotid artery
== END 2018-05-31 09:11 | disposition home or self-care (01) ==
LOC: RAD 09:10
PROVIDERS: ATTEND Internal Medicine
DX: R42 Dizziness and giddiness (principal); R41.0 Disorientation, unspecified